=== PATIENT | female | born 1945 | race Caucasian/White ===

== ENCOUNTER → 2019-10-12 10:09 | Outpatient (CLI) | payer MEDICARE, SELFPAY ==
--- NOTE | 2019-10-12 10:09 | MM_ITS ---
PROCEDURE: MM DIG SCREENING MAMM BI W/CAD Referring Doctor: Giorgio Gonzalez Patient Age:74Y CLINICAL INDICATION: Routine screening 74-year-old, no hormones, no new complaints. Noncontributory family history. COMPARISON: Prior studies from [facility]: MG DIG MAMMO BILAT SCREENING from 06/06/2014 MG DIG MAMMO BILAT SCREENING from 07/22/2015 MG DIG MAMMO DIAG UNI LEFT from 07/31/2015 MG DIG MAMMO BILAT SCREENING from 12/10/2016 TECHNIQUE: Standard CC and MLO images were obtained. R2 CAD reviewed. Bilateral digital breast tomosynthesis included. Additional nipple profile CC view right breast included. The FINDINGS: Moderate breast density bilaterally with fibroglandular elements most evident retroareolar region extending towards upper-outer quadrant bilateral. No dominant or suspicious new mass. No suspicious calcifications, minimal benign vascular calcifications bilateral Right breast: No new areas of significant concern. Stable parenchymal pattern Benign appearing calcification centrally again noted.. Left breast. No new areas of concern IMPRESSION: Stable bilateral mammogram with no significant new areas of concern. Bilateral follow-up 1 year recommended BI-RAD Category: 1 Negative FOLLOW-UP: 1YR 1 Year Follow-up (A letter has been sent to the patient regarding results of the study.) Dictated by: Dat Marcos MD 10/18/2019 11:09 Dat Marcos MD in OV 10/18/2019 11:09
== END ==
PROVIDERS: PCP Family Medicine; Visit Provider Family Medicine
DX: Z12.31 Encounter for screening mammogram for malignant neoplasm of breast (principal)
CPT/HCPCS: 77063; 77067

== ENCOUNTER → 2020-12-08 14:21 | Outpatient (CLI) | payer MEDICARE, SELFPAY ==
[2020-12-08 14:25] LABS: Adenovirus,PCR Not Detected (NotDetected); Bordetella Pertussis Not Detected (NotDetected); Chlamydophila Pneumoniae, PCR Not Detected (NotDetected); Coronavirus 19, PCR Not Detected (NotDetected); Coronavirus 229E Not Detected (NotDetected); Coronavirus NL63 Not Detected (NotDetected); Coronavirus OC43 Not Detected (NotDetected); Coronovirus HKU1,PCR Not Detected (NotDetected); Human Metapneumovirus Not Detected (NotDetected); Influenza A, PCR Not Detected (NotDetected); Influenza AH1, 2009 Not Detected (NotDetected); Influenza AH1, PCR Not Detected (NotDetected); Influenza AH3,PCR Not Detected (NotDetected); Influenza B, PCR Not Detected (NotDetected); Mycoplasma Pneumoniae, PCR Not Detected (NotDetected); Parainfluenza 1, PCR Not Detected (NotDetected); Parainfluenza 2, PCR Not Detected (NotDetected); Parainfluenza 3, PCR Not Detected (NotDetected); Parainfluenza 4, PCR Not Detected (NotDetected); Respiratory Syncytial Virus Not Detected (NotDetected)
[2020-12-08 16:15] LABS: Rhinovirus/Enterovirus Detected (NotDetected)
== END ==
PROVIDERS: Visit Provider Family Medicine
DX: R06.02 Shortness of breath (principal); Z20.822 Contact with and (suspected) exposure to COVID-19; B34.1 Enterovirus infection, unspecified
CPT/HCPCS: 87581; 87632; 87798; C9803; U0003; U0005

== ENCOUNTER → 2021-07-23 08:23 | Outpatient (CLI) | payer MEDICARE, SELFPAY ==
--- NOTE | 2021-07-23 08:25 | XR_ITS ---
FINAL REPORT TECHNIQUE: Bone densitometry calculations of the lumbar spine and right hip were obtained. CLINICAL HISTORY: . post menopausal FINDINGS: Using L1-4, the bone mineral density of the spine is 0.862 g/cm2, corresponding to T-score of -1.7. Using the right hip, the bone mineral density of the femoral neck is 0.540 g/cm2, corresponding to a T-score of -2.8. IMPRESSION: Osteoporosis: Lowest T-score is at or below -2.5. This patient''s T-score meets the World Health Organization criteria for osteoporosis. FRAX not reported due to osteoporosis. Reviewed, Interpreted and Dictated by Daniel Ramires III, MD Transcribed by Elver Radford Authenticated and [facility]
== END ==
PROVIDERS: PCP Family Medicine; Visit Provider Family Medicine
DX: Z78.0 Asymptomatic menopausal state (principal)
CPT/HCPCS: 77080

== ENCOUNTER → 2021-08-13 14:30 | Outpatient (CLI) | payer MEDICARE, SELFPAY ==
[2021-08-13 14:14] LABS: Adenovirus,PCR Not Detected (NotDetected); Bordetella Pertussis Not Detected (NotDetected); Chlamydophila Pneumoniae, PCR Not Detected (NotDetected); Coronavirus 19, PCR Not Detected (NotDetected); Coronavirus 229E Not Detected (NotDetected); Coronavirus NL63 Not Detected (NotDetected); Coronavirus OC43 Not Detected (NotDetected); Coronovirus HKU1,PCR Not Detected (NotDetected); Human Metapneumovirus Not Detected (NotDetected); Influenza A, PCR Not Detected (NotDetected); Influenza AH1, 2009 Not Detected (NotDetected); Influenza AH1, PCR Not Detected (NotDetected); Influenza AH3,PCR Not Detected (NotDetected); Influenza B, PCR Not Detected (NotDetected); Mycoplasma Pneumoniae, PCR Not Detected (NotDetected); Parainfluenza 1, PCR Not Detected (NotDetected); Parainfluenza 2, PCR Not Detected (NotDetected); Parainfluenza 3, PCR Not Detected (NotDetected); Parainfluenza 4, PCR Not Detected (NotDetected); Respiratory Syncytial Virus Not Detected (NotDetected); Rhinovirus/Enterovirus Not Detected (NotDetected)
== END ==
PROVIDERS: Visit Provider Family Medicine
DX: Z20.822 Contact with and (suspected) exposure to COVID-19; R06.9 Unspecified abnormalities of breathing; R06.09 Other forms of dyspnea; R05.9 Cough, unspecified
CPT/HCPCS: 87581; 87632; 87798; C9803; U0003; U0005

== ENCOUNTER → 2021-09-14 06:57 | Outpatient (CLI) | payer MEDICARE, SELFPAY ==
[2021-09-14 18:04] LABS: Adenovirus,PCR Not Detected (NotDetected); Bordetella Pertussis Not Detected (NotDetected); Chlamydophila Pneumoniae, PCR Not Detected (NotDetected); Coronavirus 19, PCR Not Detected (NotDetected); Coronavirus 229E Not Detected (NotDetected); Coronavirus NL63 Not Detected (NotDetected); Coronavirus OC43 Not Detected (NotDetected); Coronovirus HKU1,PCR Not Detected (NotDetected); Human Metapneumovirus Not Detected (NotDetected); Influenza A, PCR Not Detected (NotDetected); Influenza AH1, 2009 Not Detected (NotDetected); Influenza AH1, PCR Not Detected (NotDetected); Influenza AH3,PCR Not Detected (NotDetected); Influenza B, PCR Not Detected (NotDetected); Mycoplasma Pneumoniae, PCR Not Detected (NotDetected); Parainfluenza 1, PCR Not Detected (NotDetected); Parainfluenza 2, PCR Not Detected (NotDetected); Parainfluenza 3, PCR Not Detected (NotDetected); Parainfluenza 4, PCR Not Detected (NotDetected); Respiratory Syncytial Virus Not Detected (NotDetected); Rhinovirus/Enterovirus Not Detected (NotDetected)
== END ==
PROVIDERS: PCP Family Medicine; Visit Provider Family Medicine
DX: R06.09 Other forms of dyspnea (principal); J45.909 Unspecified asthma, uncomplicated; Z20.822 Contact with and (suspected) exposure to COVID-19
CPT/HCPCS: 87581; 87632; 87798; C9803; U0003; U0005

== ENCOUNTER → 2021-09-21 10:04 | Outpatient (CLI) | payer MEDICARE, SELFPAY ==
--- NOTE | 2021-09-21 10:08 | XR_ITS ---
FINAL REPORT CLINICAL HISTORY: pna FINDINGS: 2 views of the chest were obtained . The heart is normal in size. The mediastinum is within normal limits. There are bilateral pulmonary opacities, greatest at the lung bases, most worrisome for pneumonia. There is a 32 mm round opacity in the left lower lung which may represent mass or eventration of the hemidiaphragm. There is no pneumothorax. Osseous structures are unremarkable. IMPRESSION: Bilateral pulmonary opacities worrisome for pneumonia. 32 mm opacity of the left lower lung which may represent mass or eventration. Recommend CT for further evaluation. Reviewed, Interpreted and Dictated by Daniel Ramires III, MD Transcribed by Wendy Orozco Authenticated and . [facility]
[2021-09-21 13:00] LABS: Basophils % 0.2 % (0.1-2.0); Eosinophils % 0.1 % (0.1-12.0); Hematocrit 40.3 % (37.0-47.0); Hemoglobin 12.4 g/dL (12.2-16.2); Lymphocytes # 0.6 K/mm3 (0.7-4.5); Lymphocytes % 2.6 % (10-50); Mean Corpuscular HGB Conc 30.7 g/dL (31.8-35.4); Mean Corpuscular Hemoglobin 29.2 pg (27.0-31.2); Mean Corpuscular Volume 95.3 fl (81-99); Mean Platelet Volume 7.9 fl (7.4-10.4); Monocytes # 0.7 K/mm3 (0.1-1.0); Monocytes % 2.9 % (1.7-9.3); Neutrophils % 94.1 % (37.0-80.0); Platelet Count 622 K/mm3 (142-424); Red Blood Count 4.23 M/mm3 (4.20-5.40); Red Cell Distribution Width 13.6 % (11.5-17.5); White Blood Count 22.3 K/mm3 (4.8-10.8)
[2021-09-21 13:01] LABS: MANUAL DIFFERENTIAL MANUAL DIFFERENTIAL (MANUAL DIFF)
[2021-09-21 13:12] LABS: Uric Acid 4.1 mg/dl (2.5-6.2)
[2021-09-21 13:18] LABS: C-Reactive Protein 13.5 mg/L (0-4)
[2021-09-21 13:24] LABS: Eosinophils % 1 % (0-3); Lymphocytes % 5 % (10-50); Monocytes % 2 % (2-9); Neutrophils % 91 % (42-76); Total Cells Counted 100
[2021-09-21 13:25] LABS: Anisocytosis 1+; Hypochromasia 2+; Platelet Estimate Moderate Increase
[2021-09-21 13:31] LABS: Erythrocyte Sedimentation Rate 21 mm/hr (0-30)
[2021-09-22 12:10] LABS: Sjogren's Anti-SS-A <0.2 AI (0.0-0.9); Sjogren's Anti-SS-B <0.2 AI (0.0-0.9)
[2021-09-22 13:10] LABS: Angiotensin Converting Enzyme <15 U/L (14-82)
[2021-09-22 16:12] LABS: Antinuclear Antibodies, IFA Negative (.)
[2021-09-23 14:25] LABS: Cytoplasmic (C-ANCA) 1:40 titer (Neg:<1:20); Perinuclear (P-ANCA) <1:20 titer (Neg:<1:20)
[2021-09-24 00:11] LABS: Anti-Cyclic Citrullinated Pept 3 units (0-19)
[2021-09-24 18:09] LABS: QuantiFERON-TB Gold Plus Indeterminate (Negative)
[2021-09-25 16:13] LABS: Strongyloides IgG Antibody Negative (Negative)
[2021-09-29 17:51] LABS: D001-IgE D pteronyssinus 0.11 kU/L (Class 0/I); D002-IgE D farinae 0.12 kU/L (Class 0/I); E005-IgE Dog Dander 0.54 kU/L (Class I); E072-IgE Mouse Urine <0.10 kU/L (Class 0); I006-IgE Cockroach, German <0.10 kU/L (Class 0); M002-IgE Cladosporium herbarum <0.10 kU/L (Class 0); M006-IgE Alternaria alternata <0.10 kU/L (Class 0); W001-IgE Ragweed, Short 0.27 kU/L (Class 0/I)
[2021-10-03 18:27] LABS: Antinuclear Antibodies (ANA) Negative
[2021-10-03 18:50] LABS: Aspergillus fumigatus IgG Negative; Pigeon Serum Abs Negative
== END ==
PROVIDERS: Internal Medicine Pulmonary Disease; PCP Family Medicine; Visit Provider Family Medicine
DX: R09.02 Hypoxemia (principal); R06.09 Other forms of dyspnea; J84.9 Interstitial pulmonary disease, unspecified; D72.19 Other eosinophilia; J45.909 Unspecified asthma, uncomplicated
CPT/HCPCS: 36415; 71046; 82164; 82785; 84550; 85007; 85025; 85651; 86003; 86038; 86140; 86200; 86235; 86256; 86331; 86431; 86480; 86602; 86606; 86609; 86682

== ENCOUNTER → 2021-09-30 13:04 | Outpatient (CLI) | payer MEDICARE, SELFPAY ==
[2021-09-30 13:25] VITALS: BP 115/89; PULSE 101; RESP 24; O2SAT 95
[2021-09-30 13:35] VITALS: BP 115/70; PULSE 105; RESP 28; O2SAT 91
[2021-09-30 14:30] VITALS: PULSE 89; PULSE 90
--- NOTE | 2021-09-30 14:56 | CT_ITS ---
FINAL REPORT TECHNIQUE: Axial images were obtained through the chest without contrast. High-resolution technique was utilized. CLINICAL HISTORY: . 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 There is a moderate hiatal hernia. There is bulky calcification in the kaiser hepatis, probably related to large calcified node measuring 2.6 cm. There is a fluid attenuation structure in the left upper lobe measuring 4.7 x 3.6 cm which appears cystic. This may extend across the left hemidiaphragm. Finding is best seen on coronal image number 22 of series 601. There is abnormal localized airspace opacity in the right upper lobe well seen on image number 22 of series 601. There are smaller patchy airspace foci bilaterally. There is extensive peribronchial thickening throughout both lungs, particularly at the bases. There is mild bronchiectasis, particularly in the lung bases. IMPRESSION: Right aortic arch. Moderate hiatal hernia. Fluid attenuation structure in the left upper lobe which appear cystic and may extend across the left hemidiaphragm. Extensive bronchitis and bronchiolitis with associated bronchiectasis. Findings are thought likely to be infectious. Recommend bronchoscopy to further evaluate. Reviewed, Interpreted and Dictated by Jevon Baig MD Transcribed by Jolynn Miles Authenticated and [facility]
== END ==
PROVIDERS: PCP Family Medicine; Visit Provider Internal Medicine Pulmonary Disease
DX: R06.09 Other forms of dyspnea (principal); J84.9 Interstitial pulmonary disease, unspecified
CPT/HCPCS: 71250; 87070; 87077; 87116; 87186; 87205; 87206; 94060; 94618; 94640; 94727; 94729

== ENCOUNTER → 2021-10-17 10:09 | Outpatient (CLI) | payer MEDICARE, SELFPAY | PROVIDERS: PCP Family Medicine; Visit Provider Internal Medicine Pulmonary Disease | DX: Z20.822 Contact with and (suspected) exposure to COVID-19 (principal) | CPT/HCPCS: C9803; U0003; U0005 ==

== ENCOUNTER 2021-10-19 09:20 | Day surgery (SDC) | payer MEDICARE, SELFPAY ==
[2021-10-19] VITALS (13 sets, daily range): BP systolic 107–170; BP diastolic 52–109; PULSE 88–102; RESP 11–29; TEMP 36.3–37.1; O2SAT 92–99; BMI 23.8
--- NOTE | 2021-10-19 13:58 | P.PN_ITS ---
[facility] Medical History Atypical pneumonia Bronchiectasis with (acute) exacerbation Bronchiolitis Chronic respiratory failure with hypoxia COPD (chronic obstructive pulmonary disease) case management patient Exertional dyspnea ILD (interstitial lung disease) Moderate persistent asthma 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 Surgical History History of section Family History (Updated 10/19/21 @ 10:08 by Pamela Kerns RN) Other Family history of heart attack Social History (Updated 10/19/21 @ 10:10 by Pamela Kerns RN) Smoking Status: Never smoker alcohol intake: never substance use type: denies use current occupational status: retired Travel in the last 8 weeks: None housing: house caffeine: Yes [facility] [place] Anesthesia Checklist Patient Identification Patient Identification: Arm Band and Verbal (Name & ) Structural Data Admitted From: Home Planned Operative Procedure/s: Bronchoscopy Consent for Planned Operative Procedure(s) Verified: Yes Verified Documents: Surgical Consent NPO Status Verified Time NPO: 00:00 Additional verifications Cephalosporin Allergy: No Airway Assessment C-Spine Mobility Assessed: Yes TMJ Mobility Assessed: Yes Dentition: Good Dentition Neurological Assessment Level of Consciousness: Awake, Alert and Appropriate Anesthesia Plan Anesthesia Risk discussed: Yes ASA Class: III Anesthesia Type: General
--- NOTE | 2021-10-19 14:03 | XR_ITS ---
FINAL REPORT CLINICAL HISTORY: BRONCH IN OR FINDINGS: FLUORO TIME PROCEDURE: Fluoroscopy in the operating room. FINDINGS: Fluoroscopy time was provided by the radiology department for the clinical service. One spot film was obtained. Fluoroscopy exposure time: 2:09 minutes IMPRESSION: See above Reviewed, Interpreted and Dictated by Daniel Ramires III, MD Transcribed by Sia Hi Authenticated and [facility]
--- NOTE | 2021-10-19 14:20 | EXP.ANES.I ---
[facility] Anesthesia Record Part I Anesthesia Record I Intake, IV Amount: 600 Estimated blood loss (mL): 1 Urine output (mL): 0 Blood Pressure: 130/55 SaO2: 92 Pulse Rate: 88 Respiratory Rate: 14 Temperature: 97.9 F Patient is:: Drowsy Stable to PACU at:: 14:14
--- NOTE | 2021-10-19 15:04 | EXP.ANES.II ---
[facility] Anesthesia Record Part II Anesthesia Record Part II Discharge Time: 14:44 Destination: Surgical Day Care (OP Surgery) PACU nurse assessment reviewed?: Yes Patient Condition:: Good Anesthesia Complications:: None Swallowing reflex intact?: Yes Cyanosis?: No Blood Pressure: 138/56 Pulse Rate: 97 Temperature: 97.3 F Mental Status: Alert & Oriented Pain level:: 0 Nausea and/or vomitting:: None Intake, IV Amount: 0
== END 2021-10-19 15:32 | disposition home or self-care (01) ==
PROVIDERS: PCP Family Medicine; Visit Provider Internal Medicine Pulmonary Disease
DX: J93.9 Pneumothorax, unspecified (principal)
CPT/HCPCS: 71045; 76000; 87070; 87102; 87116; 87186; 87205; 87206; 89051; 94640

== ENCOUNTER 2021-10-19 18:35 | Inpatient (IN) | payer MEDICARE, SELFPAY ==
[2021-10-19] VITALS (20 sets, daily range): BP systolic 94–159; BP diastolic 46–84; PULSE 80–118; RESP 18–44; TEMP 36.3–36.6; O2SAT 98–100; BMI 29.4; BMI 29.2
--- NOTE | 2021-10-19 18:44 | XR_ITS ---
PROCEDURE INFORMATION: Exam: XR Chest Exam date and time: 10/19/2021 6:49 PM Age: 76 years old Clinical indication: Shortness of breath; Patient HX: PT arrived w SOA & pneumothorax TECHNIQUE: Imaging protocol: Radiologic exam of the chest. Views: 1 view. COMPARISON: SD XR CHEST AP 10/19/2021 2:00 PM FINDINGS: Tubes, catheters and devices: Moderate size right pneumothorax with subsequent chest radiograph demonstrating right chest tube placement and reduction in size. Lungs: Bronchial wall thickening and coarse interstitial markings, not significantly changed from prior chest radiograph. Atelectasis in the right lung base. Pleural spaces: No large pleural effusion. No left pneumothorax. Heart/Mediastinum: Slight right to left mediastinal shift concerning for tension pneumothorax, also improved on subsequent chest radiograph. Bones/joints: No acute osseous abnormality. IMPRESSION: 1. Moderate size right pneumothorax with subsequent chest radiograph demonstrating right chest tube placement and reduction in size. 2. Slight right to left mediastinal shift concerning for tension pneumothorax, also improved on subsequent chest radiograph.
--- NOTE | 2021-10-19 18:59 | XR_ITS ---
PROCEDURE INFORMATION: Exam: XR Chest Exam date and time: 10/19/2021 7:11 PM Age: 76 years old Clinical indication: Device placement; Chest tube; Patient HX: Post intubation TECHNIQUE: Imaging protocol: Radiologic exam of the chest. Views: 1 view. COMPARISON: CR XR CHEST PORTABLE 10/19/2021 6:49 PM FINDINGS: Tubes, catheters and devices: Interval placement of right-sided chest tube with tip projecting over the of the right hemithorax in side hole external to the ribcage. Endotracheal tube in place with tip projecting 4.6 cm above the leonardo. Lungs: Subsegmental atelectasis vs infiltrate in the lingula. Bronchial wall thickening and coarse interstitial markings, not significantly changed. Pleural spaces: Significant interval reduction in size of right-sided pneumothorax with persistent subsegmental atelectasis in the right lung base. Heart/Mediastinum: See Vasculature finding. Vasculature: Interval reduction in right to left mediastinal shift with right-sided aortic arch now apparent. Bones/joints: No acute osseous abnormality. IMPRESSION: 1. Interval placement of right-sided chest tube with tip projecting over the of the right hemithorax in side hole external to the ribcage. Consider replacement/repositioning. 2. Significant interval reduction in size of right-sided pneumothorax with persistent subsegmental atelectasis in the right lung base. 3. Interval reduction in right to left mediastinal shift with right-sided aortic arch now apparent. 4. Endotracheal tube in place with tip projecting 4.6 cm above the leonardo. 5. Subsegmental atelectasis vs infiltrate in the lingula.
--- NOTE | 2021-10-19 19:32 | PC.NURSE ---
dr pantoja paged for ED doctor
--- NOTE | 2021-10-19 19:33 | PC.NURSE ---
ED doctor on phone with Dr. Gonzalez
--- NOTE | 2021-10-19 19:34 | PC.NURSE ---
Propofol initiated at 18ml/hr per protocol at 1921 Propofol increased to 20ml/hr at 9 d/t pt reaching for ET tube.
--- NOTE | 2021-10-19 19:37 | PC.NURSE ---
Dr. Caballero paged for ED doctor
--- NOTE | 2021-10-19 19:40 | PC.NURSE ---
ED doctor on phone with Dr. Caballero
--- NOTE | 2021-10-19 19:59 | PC.NURSE ---
PATIENT ADMITTED TO [address] TO SERVICE OF DR[address] MALLOY, DX OF HYPOXIA, RESP FAILURE AND TENSION PNEUMOTHORAX.
--- NOTE | 2021-10-19 20:04 | HMH.EDGENADL ---
Discharge Plan Disposition Patient Disposition: Admitted As Inpatient Condition: Critical Chief Complaint: Shortness of Breath/Dyspnea Prescriptions Prescriptions: No Action aspirin [Aspir-81] 81 mg tablet,delayed release (DR/EC) 81 mg PO DAILY guaifenesin [Mucinex] 600 mg tablet extended release 12hr 600 mg PO Q12H PRN (Reason: congestion) Qty: 60 10RF Prolia 60 mg/mL syringe 60 mg SQ [id number] Qty: 1 2RF albuterol sulfate 1.25 mg/3 mL solution for nebulization See Rx Instructions .ROUTE .COMPLEX Rx Instructions: INHALE 6 ML VIA NEBULIZER EVERY 6 HOURS. meloxicam 15 mg tablet 15 mg PO DAILY montelukast 10 mg tablet 10 mg PO DAILY levofloxacin 750 mg tablet 750 mg PO DAILY cholecalciferol (vitamin D3) 125 mcg (5,000 unit) capsule 125 mcg PO DAILY Spiriva with HandiHaler 18 mcg capsule, w/inhalation device See Rx Instructions .ROUTE .COMPLEX Rx Instructions: INHALE THE CONTENTS OF 1 CAPSULE EVERY DAY amlodipine-benazepril 10-40 mg capsule 1 cap PO DAILY Advair HFA 230-21 mcg/actuation HFA aerosol inhaler 2 puff INHALATION BID Referrals Follow up/Referrals: Giorgio Gonzalez MD [Primary Care Provider] - See instructions Discharge ED Provider: Sergio Gurrola General Adult HPI General Chief complaint: Shortness of Breath/Dyspnea Stated complaint: Resp Distress Time Seen by Provider: 10/19/21 18:35 Mode of Arrival: EMS Source of Information: EMS Limitations: Language Barrier Description of Symptoms (Recalled from ER Triage Doc. by RN): to ed per squad with c/o sob reports pt with bronchoscopy today. reports o2 sat of 80% at home pt admits on cpap o2 sats of 99%. obtuned. History of Present Illness HPI narrative: This is a 76-year-old female with history of COPD, lung mass, interstitial lung disease, who had bronchoscopy done today who is presenting with altered mental status, obtunded, hypoxemic respiratory failure. EMS was called because patient was nonresponsive, when they arrived, patient saturating in the 70%. They placed her on CPAP without resolved, gave her 2 DuoNeb's, steroids, no evidence of improvement. Brought patient to ED for further evaluation. Related Data Home Medications Medication Instructions Recorded Confirmed aspirin 81 mg tablet,delayed 81 mg PO DAILY heart health 08/14/19 10/19/21 release (Aspir-) albuterol sulfate 1.25 mg/3 mL See Rx Instructions .Route 10/16/21 10/19/21 solution for nebulization .COMPLEX COPD amlodipine 10 mg-benazepril 40 mg 1 cap PO DAILY High blood pressure 10/16/21 10/19/21 capsule cholecalciferol (vitamin D3) 125 125 mcg PO DAILY Supplement 10/16/21 10/19/21 mcg (5,000 unit) capsule fluticasone propionate 230 2 puff inhalation BID COPD 10/16/21 10/19/21 mcg-salmeterol 21 mcg/actuation HFA inhaler (Advair HFA) levofloxacin 750 mg tablet 750 mg PO DAILY Infection 10/16/21 10/19/21 meloxicam 15 mg tablet 15 mg PO DAILY Pain 10/16/21 10/19/21 montelukast 10 mg tablet 10 mg PO DAILY Allergy symptoms 10/16/21 10/19/21 tiotropium bromide 18 mcg capsule See Rx Instructions .Route 10/16/21 10/19/21 with inhalation device (Spiriva .COMPLEX COPD with HandiHaler) Previous Rx's Medication Instructions Recorded guaifenesin 600 mg tablet, 600 mg PO Q12H PRN congestion #60 11/07/20 extended release 12 hr (Mucinex) tabs denosumab 60 mg/mL subcutaneous 60 mg SQ [id number] osteoporosis #1 08/13/21 syringe (Prolia) mL Allergies Allergy/AdvReac Type Severity Reaction Status Date / Time egg Allergy Severe Swelling Verified 10/19/21 09:48 of Lip/Tongue/Throat levofloxacin [From Levaquin] Allergy Severe Swelling Verified 10/19/21 09:48 of Lip/Tongue/Throat clarithromycin [From Biaxin] Allergy Mild Hives Verified 10/19/21 09:48 phenytoin [From Dilantin] Allergy Mild Hives Verified 10/19/21 09:48 alendronate sodium Allergy rash, hives Verified 10/19/21 09:48 [Fro
--- NOTE | 2021-10-19 20:14 | PC.NURSE ---
RESP CARE NOTE pt was intubated and sputum culture from endotracheal tub aspirate was obtained per written protocol and sent to lab at 1930
--- NOTE | 2021-10-19 20:28 | ECG_ITS ---
APPROVED REPORT Exam: Resting ECG HR:91 bpm ECG Measurements Heart Rate 91 AXES SC 135 P 83 QRSd 99 QRS 78 QT 367 T 49 QTc 415 Conclusion SINUS RHYTHM NORMAL ECG UNCONFIRMED REPORT Electronically signed by : Raymond Griffith MD 10/20/2021 15:44:22
[2021-10-19 20:29] LABS: Microscopic, Urine URINE MICROSCOPIC (MICROSCOPIC)
[2021-10-19 20:32] LABS: Appearance,Urine CLEAR (Clear); Bilirubin,Urine Negative (Negative); Blood, Urine Negative (Negative); Color,Urine YELLOW (Yellow); Glucose,Urine (UA) Negative (Negative); Ketones,Urine Negative (Negative); Leukocyte Esterase,Urine Negative (Negative); Nitrate,Urine Negative (Negative); PH,Urine 5.5 (5.0-8.5); Protein,Urine TRACE (Negative); Specific Gravity, Urine >= 1.030 (1.005-1.030); Urobilinogen,Urine 0.2 EU/dl (0.2)
[2021-10-19 20:42] LABS: ABG Base Excess -2.1 mmol/L (-2.4-2.3); ABG Oxygen Saturation 99 % (90-100); ABG PH 7.25 mmol/L (7.35-7.45); ABG PO2 158.2 mmhg (80-100); ABG TCO2 26.8 mmhg (23-27); Allen's Test Patient Unable; Oxygen 50 %; PEEP 5; Tidal Volume 400
[2021-10-19 20:43] LABS: Source Right Brachial
[2021-10-19 20:48] LABS: Basophils % 0.1 % (0.1-2.0); Eosinophils # 0.1 K/mm3 (0.0-0.4); Eosinophils % 0.2 % (0.1-12.0); Hematocrit 36.6 % (37.0-47.0); Hemoglobin 11.6 g/dL (12.2-16.2); Lymphocytes # 0.3 K/mm3 (0.7-4.5); Mean Corpuscular HGB Conc 31.7 g/dL (31.8-35.4); Mean Corpuscular Hemoglobin 29.8 pg (27.0-31.2); Mean Corpuscular Volume 94.2 fl (81-99); Mean Platelet Volume 7.7 fl (7.4-10.4); Monocytes # 0.8 K/mm3 (0.1-1.0); Neutrophils # 25.6 K/mm3 (1.8-7.8); Neutrophils % 95.6 % (37.0-80.0); Platelet Count 418 K/mm3 (142-424); Red Blood Count 3.89 M/mm3 (4.20-5.40); Red Cell Distribution Width 13.9 % (11.5-17.5); White Blood Count 26.8 K/mm3 (4.8-10.8)
--- NOTE | 2021-10-19 20:54 | PC.NURSE ---
Propofol decreased to 18ml/hr
[2021-10-19 20:57] LABS: MANUAL DIFFERENTIAL MANUAL DIFFERENTIAL (MANUAL DIFF)
[2021-10-19 21:12] LABS: Chloride 96 mmol/L (98-107); Potassium 4.4 mmoL/L (3.5-5.1); Sodium 137 mmol/L (136-145)
[2021-10-19 21:14] LABS: Blood Urea Nitrogen 8 mg/dl (7-17); Creatinine Clearance Estimated 55 mL/min (50-200); Estimated Glomerular Filt Rate 120 ml/min (>60); GFR (African American) 145 ML/MIN (>60); Lactic Acid 2.3 mmol/L (0.7-2.1)
[2021-10-19 21:15] LABS: Alanine Aminotransferase 17 U/L (12-78); Albumin Level 3.6 g/dl (3.5-5.0); Albumin/Globulin Ratio 1.4 (1.1-1.8); Alkaline Phosphatase 88 U/L (38-126); Anion Gap 16.4 mEq/L (5-15); Aspartate Amino Transferase 33 U/L (14-36); Bilirubin,Total 0.6 mg/dl (0.2-1.3); Calcium 7.9 mg/dl (8.4-10.2); Carbon Dioxide 29 mmol/L (22.0-30.0); Globulin 2.6 g/dL (1.3-3.2); Glucose 243 mg/dl (74-100); Total Protein,Serum 6.2 g/dl (6.3-8.2)
[2021-10-19 21:33] LABS: Coronavirus 19, PCR Not Detected (NotDetected); Influenza A, PCR Not Detected (NotDetected); Influenza B, PCR Not Detected (NotDetected)
[2021-10-19 21:34] LABS: Lymphocytes % 3 % (10-50); Monocytes % 1 % (2-9); Neutrophils % 96 % (42-76); Total Cells Counted 100
[2021-10-19 21:36] LABS: Ovalocytes 1+; Platelet Estimate Normal
[2021-10-19 21:40] LABS: Bacteria,Urine 1+ /lpf
[2021-10-19 21:41] LABS: Troponin I < 0.01 ng/ml (0.00-0.034)
--- NOTE | 2021-10-19 21:58 | PC.NURSE ---
also said to cancel CT w/contrast
--- NOTE | 2021-10-19 23:04 | PC.NURSE ---
PT ARRIVED TO FLOOR VIA STRETCHER AT THIS TIME
--- NOTE | 2021-10-19 23:35 | PC.NURSE ---
Pt left ED at 2304 to the floor accompanied by CECILY Abebe and RT
[2021-10-20] VITALS (29 sets, daily range): BP systolic 94–166; BP diastolic 51–67; PULSE 63–112; RESP 15–24; TEMP 36.3–37.1; O2SAT 93–100; BMI 21.7
--- NOTE | 2021-10-20 00:14 | PC.NURSE ---
MD Gonzalez notified that pt met sepsis criteria with WBC, HR prior in ER, Lactic with new suspected infection. Pt was given cefepime in ER. She is not hypotensive. New orders received to start NS @ 100 ml/hr.
[2021-10-20 00:26] LABS: Reflex Lactic Add Lactic Reflex
[2021-10-20 00:29] LABS: Troponin I 0.01 ng/ml (0.00-0.034)
[2021-10-20 00:43] LABS: Lactic Acid Follow Up (RFLX 1) 1.2 mmol/L (0.7-2.1)
--- NOTE | 2021-10-20 03:22 | PC.NURSE ---
Vent settings are as follows: AC, FiO2 35%, TV 400, R 20, PEEP 5. 16 fr OG placed. 56 @ lip. Pt tolerating vent. Pt moderately sedated at this time. Still wakes and thrashes about at times. Propofol is currently infusing @ 50 mcg/kg/min. Ns @ 100 ml/hr. 16 F/C draining to bedside with yellow, clear urine. Urine output has decreased since arrival to floor. Pleur evac to suction. Air leak noted. DSG to (R) side is intact. Pt turned. Oral care and suction provided. Safety measures in place.
--- NOTE | 2021-10-20 06:00 | XR_ITS ---
PROCEDURE INFORMATION: Exam: XR Chest Exam date and time: 10/20/2021 5:25 AM Age: 76 years old Clinical indication: Device placement; Chest tube; Additional info: Ett, chest tube, og placement TECHNIQUE: Imaging protocol: Radiologic exam of the chest. Views: 1 view. COMPARISON: CR XR CHEST PORTABLE 10/19/2021 7:11 PM FINDINGS: Tubes, catheters and devices: Nasogastric tube extends slightly below the diaphragm with the tip projecting over the body of the stomach. The endotracheal tube is above the level of the leonadro. Thoracotomy tube on the right directed to the apex. Lungs: Emphysema. Patchy airspace disease most pronounced within the right lower lobe greater than left. Patchy airspace disease in the perihilar region. Pleural spaces: Unremarkable. No pleural effusion. No pneumothorax. Heart/Mediastinum: Unremarkable. No cardiomegaly. Right-sided aortic arch. Bones/joints: Unremarkable. IMPRESSION: Emphysema. Patchy airspace disease most pronounced within the right lower lobe greater than left. Patchy airspace disease in the perihilar region.
[2021-10-20 06:29] LABS: Basophils % 0.1 % (0.1-2.0); Eosinophils # 0.1 K/mm3 (0.0-0.4); Eosinophils % 0.4 % (0.1-12.0); Hemoglobin 10.6 g/dL (12.2-16.2); Lymphocytes # 0.6 K/mm3 (0.7-4.5); Lymphocytes % 2.7 % (10-50); MANUAL DIFFERENTIAL MANUAL DIFFERENTIAL (MANUAL DIFF); Mean Corpuscular HGB Conc 32.1 g/dL (31.8-35.4); Mean Corpuscular Hemoglobin 29.7 pg (27.0-31.2); Mean Corpuscular Volume 92.4 fl (81-99); Mean Platelet Volume 8.7 fl (7.4-10.4); Monocytes # 0.8 K/mm3 (0.1-1.0); Monocytes % 3.5 % (1.7-9.3); Neutrophils # 19.7 K/mm3 (1.8-7.8); Neutrophils % 93.2 % (37.0-80.0); Platelet Count 358 K/mm3 (142-424); Red Blood Count 3.57 M/mm3 (4.20-5.40); White Blood Count 21.1 K/mm3 (4.8-10.8)
[2021-10-20 06:44] LABS: Anion Gap 11.9 mEq/L (5-15); Blood Urea Nitrogen 14 mg/dl (7-17); Calcium 7.9 mg/dl (8.4-10.2); Carbon Dioxide 22 mmol/L (22.0-30.0); Chloride 102 mmol/L (98-107); Creatinine Clearance Estimated 41 mL/min (50-200); Estimated Glomerular Filt Rate 120 ml/min (>60); GFR (African American) 145 ML/MIN (>60); Glucose 156 mg/dl (74-100); Potassium 3.9 mmoL/L (3.5-5.1); Sodium 132 mmol/L (136-145)
--- NOTE | 2021-10-20 07:17 | P.CONPHA_ITS ---
[facility] Pharmacy VTE Monitoring Patient Demographics Admission date: 10/19/21 Report Date: 10/20/21 Time: 07:17 Patient Allergies egg Allergy (Severe, Verified 10/19/21 09:48) Swelling of Lip/Tongue/Throat levofloxacin [From Levaquin] Allergy (Severe, Verified 10/19/21 09:48) Swelling of Lip/Tongue/Throat clarithromycin [From Biaxin] Allergy (Mild, Verified 10/19/21 09:48) Hives phenytoin [From Dilantin] Allergy (Mild, Verified 10/19/21 09:48) Hives alendronate sodium [From Fosamax] Allergy (Verified 10/19/21 09:48) rash, hives oxycodone Adverse Reaction (Verified 10/19/21 09:48) vomiting Height: 1.57 m Weight: 53.615 kg Current Active Problems (Updated 10/20/21 @ 02:49 by Yocasta Cool RN) Pneumothorax (Acute) VTE Risk Labs: VTE Related Lab Results Hgb 10.6 g/dL (12.2-16.2) L 10/20/21 06:05 Hct 33.0 % (37.0-47.0) L 10/20/21 06:05 Plt Count 358 K/mm3 (142-424) 10/20/21 06:05 BUN 14 mg/dl (7-17) D 10/20/21 06:05 Creatinine 0.50 mg/dl (0.52-1.04) L 10/20/21 06:05 Estimated Creat Clear 41 mL/min (50-200) 10/20/21 06:05 VTE Risk Level: Moderate Risk Prophylaxis VTE Prophylaxis Ordered?: Yes Types of VTE Prophylaxis: TEDS Knee High Location of Applied Device: Bilateral Lower Extremeties
--- NOTE | 2021-10-20 07:17 | HMH.PHAINT1 ---
Pharmacy Intervention Comments: MEDICATION RECONCILIATION COMPLETED ON PATIENT USING EXTERNAL FILL HISTORY FROM PHARMACY. -ROCK ZAMBRANO, CESILIAD
[2021-10-20 07:44] LABS: Lymphocytes % 5 % (10-50); Monocytes % 1 % (2-9); Neutrophils % 94 % (42-76); Platelet Estimate Normal; RBC Morphology Normal; Total Cells Counted 100
[2021-10-20 07:54] LABS: ABG Base Excess 0.2 mmol/L (-2.4-2.3); ABG HCO3 22.7 mmhg (22.0-26.0); ABG Oxygen Saturation 98 % (90-100); ABG PCO2 27.1 mmhg (35.0-45.0); ABG PH 7.54 mmol/L (7.35-7.45); ABG TCO2 23.5 mmhg (23-27); Oxygen 30 %; Tidal Volume 400; Vent Rate 20
[2021-10-20 07:55] LABS: Allen's Test acceptable; PEEP 5; Source Left Radial
--- NOTE | 2021-10-20 07:57 | EXP.HP ---
History of Present Illness *Admission Date: 10/19/21 *Reason for visit:: Respiratory distress *History of present illness: 46-year-old female patient presented to the [facility] emergency department via EMS after family called squad for patient's O2 saturations of 80%. Patient had a bronchoscopy yesterday and last evening developed shortness of breath and respiratory distress. Upon arrival squad noted oxygen saturation to be 70% and she was nonresponsive. They administered 2 duo nebs, steroids, and CPAP with no improvement. Emergency department she was found to not have right-sided breath sounds, bedside ultrasound demonstrated no lung movement and initial chest x-ray demonstrated tension and resolution of mediastinal shift and emergent chest tube was placed. Due to patient unable to protect airway, patient was intubated. 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 Surgical History History of section Family History Other Family history of heart attack Social History (Updated 10/20/21 @ 02:52 by Yocasta Cool RN) Smoking Status: Unknown if ever smoked alcohol intake: never substance use type: denies use current occupational status: retired Travel in the last 8 weeks: None housing: house caffeine: Yes Review of Systems Review of Systems Review of systems:: unable to obtain Review of systems (narrative): Review of systems unable to obtain, patient intubated and sedated Meds Home Medications and Allergies Home Medications Medication Instructions Recorded Confirmed Type denosumab 60 mg/mL subcutaneous 60 mg SQ [id number] osteoporosis #1 08/13/21 10/19/21 Rx syringe (Prolia) mL albuterol sulfate 1.25 mg/3 mL 1.25 mg inhalation Q6 COPD 10/16/21 10/19/21 History solution for nebulization amlodipine 10 mg-benazepril 40 mg 1 cap PO DAILY Hypertension 10/16/21 10/19/21 History capsule cholecalciferol (vitamin D3) 125 125 mcg PO DAILY Supplement 10/16/21 10/19/21 History mcg (5,000 unit) capsule meloxicam 15 mg tablet 15 mg PO DAILY Pain 10/16/21 10/19/21 History montelukast 10 mg tablet 10 mg PO DAILY Allergy symptoms 10/16/21 10/19/21 History fluticasone propionate 230 1 puff inhalation BID COPD 10/19/21 10/19/21 History mcg-salmeterol 21 mcg/actuation HFA inhaler (Advair HFA) tiotropium bromide 18 mcg capsule 1 cap inhalation DAILY COPD 10/19/21 10/20/21 History with inhalation device (Spiriva with HandiHaler) aspirin 81 mg tablet,delayed 81 mg PO DAILY HEART HEALTH 10/20/21 10/20/21 History release New Prescriptions to Start Prescriptions: Allergies Allergy/AdvReac Type Severity Reaction Status Date / Time egg Allergy Severe Swelling Verified 10/19/21 09:48 of Lip/Tongue/Throat levofloxacin [From Levaquin] Allergy Severe Swelling Verified 10/19/21 09:48 of Lip/Tongue/Throat clarithromycin [From Biaxin] Allergy Mild Hives Verified 10/19/21 09:48 phenytoin [From Dilantin] Allergy Mild Hives Verified 10/19/21 09:48 alendronate sodium Allergy rash, hives Verified 10/19/21 09:48 [From Fosamax] oxycodone AdvReac vomiting Verified 10/19/21 09:48 Exam Data for Last 24 hours Vital signs and Labs for Last 24 Hours: Temp Pulse Resp BP Pulse
--- NOTE | 2021-10-20 09:22 | P.PCN_ITS ---
Procedure: Date: 10/19/21 Patient Date of :: 1945 Procedure Performed:: Bronchoscopy with airway examination, alveolar lavage and transbronchial biopsy Indications:: Atypical pneumonia/follicular bronchiolitis Performing Provider:: Anna Caballero MD Referring Provider:: Dr. Gonzalez Sedation:: General anesthesia Procedure:: Bronchoscopy airway examination, bronchoalveolar lavage and transbronchial lung biopsy: A clean DIAGNOSTIC bronchoscopy was advanced through the ET tube and airways were examined up to subsegmental bronchi. Airways appeared grossly normal, no evidence of mucoid secretions, mucous plugging active bleeding/old blood clots noted. Bronchoalveolar lavage was performed in the RIGHT MIDDLE LOBE with instillation of 60 cc normal saline with return of 30 cc cloudy fuid back. BAL fluid was sent for cell count and differential along with bacterial fungal and AFB stain and cultures. Transbronchial biopsy was performed in the RIGHT MIDDLE LOBE with a total of 7 biopsies performed, 5 biopsy specimens were sent in formalin for cytopathologic examination. The other 2 biopsy samples, were sent one each in two separate normal saline specimen cups for bacterial fungal and AFB stain cultures. Special request was also made for the pathologist to evaluate for AFB and fungal organisms on the cytopathologic examination. Patient tolerated the procedure with no acute immediate complicatios and was discharged home with postoperative instructions. However patient returned to the emergency department later the day of the procedure complaining worsening respiratory distress found to be having right- sided pneumothorax eventually needing emergency chest tube placement. Findings:: Please see the procedure note Recommendations:: Please see the procedure note. Complications:: No acute immediate complications. However patient returned to the emergency department later the day of the procedure complaining worsening respiratory distress found to be having right-sided pneumothorax eventually needing emergency chest tube placement. Please see the procedure note Estimated blood obtained (mL): 5
--- NOTE | 2021-10-20 10:07 | PC.NURSE ---
per dr li decreased propofol down to 15mcg/kg/min from the 50. plan to turn it off and start sbt. also turned of fluids per his order
--- NOTE | 2021-10-20 10:59 | PC.NURSE ---
Addendum entered by Shima Banegas RN 10/20/21 11:38: 1125 sedation stopped for sbt Original Note: 1015 Dr Caballero at bedside securing chest tube, sedation increased to 30mcg (from 15mcg) per his verbal order. sedation to be decreased back to 15mcg in approx 30min 1100 sedation decreased back to 15mcg in preparation for SBT. Respiratory notified of sedation changes
--- NOTE | 2021-10-20 11:07 | EXP.PULM.CON ---
History of Present Illness History of present illness: Ms. Garcia is 76-year-old female with significant smoking requires a diagnosis of asthma, follicular bronchiolitis following in pulmonary clinic for exertional dyspnea had a bronchoscopy transbronchial biopsy yesterday complicated by pneumothorax presented to the hospital later yesterday for worsening respiratory status found to be having with requiring emergent chest tube placement and mechanical ventilator support for her altered mentation possible hypercarbic respiratory failure and pulmonary was called for further management. 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 Surgical History History of section Family History Other Family history of heart attack Social History (Updated 10/20/21 @ 02:52 by Yocasta Cool, CECLIY) Smoking Status: Unknown if ever smoked alcohol intake: never substance use type: denies use current occupational status: retired Travel in the last 8 weeks: None housing: house caffeine: Yes Review of Systems Review of Systems Review of systems:: unable to obtain Review of systems (narrative): Patient intubated and sedated Pulmonology Exam Inpatient Vital signs and Labs for Last 24 Hours: Temp Pulse Resp BP Pulse Ox FiO2 97.7 F 74 20 145/66 H 100 30 10/20/21 08:00 10/20/21 10:00 10/20/21 10:00 10/20/21 10:00 10/20/21 10:00 10/20/21 06:11 Laboratory Results - last 24 hr 10/19/21 19:37: Specimen Source Right brachial, O2 % 50, ABG pH 7.25 L, ABG pCO2 58.0 H, ABG pO2 158.2 H, ABG HCO3 25.0, ABG Total CO2 26.8, ABG O2 Saturation 99, ABG Base Excess -2.1, Tevin Test Patient unable, Tidal Volume 400, PEEP 5 10/19/21 20:20: Urine Color Yellow, Urine Appearance Clear, Urine pH 5.5, Ur Specific [place] >= 1.030, Urine Protein Trace, Urine Glucose (UA) Negative, Urine Ketones Negative, Urine Blood Negative, Urine Nitrate Negative, Urine Bilirubin Negative, Urine Urobilinogen 0.2, Ur Leukocyte Esterase Negative, Urine WBC 3-5, Urine Bacteria 1+ 10/19/21 20:30: WBC 26.8 H*, RBC 3.89 L, Hgb 11.6 L, Hct 36.6 L, MCV 94.2, MCH 29.8, MCHC 31.7 L, RDW 13.9, Plt Count 418, MPV 7.7, Neut % (Auto) 95.6 H, Lymph % (Auto) 1.0 L, [place] % (Auto) 3.0, Eos % (Auto) 0.2, Baso % (Auto) 0.1, Neut # (Auto) 25.6 H, Lymph # (Auto) 0.3 L, [place] # (Auto) 0.8, Eos # (Auto) 0.1, Baso # (Auto) 0.0, Total Counted 100, Neutrophils % (Manual) 96 H, Lymphocytes % (Manual) 3 L, Monocytes % (Manual) 1 L, Platelet Estimate Normal, Ovalocytes 1+ 10/19/21 20:30: Sodium 137, Potassium 4.4, Chloride 96 L, Carbon Dioxide 29, Anion Gap 16.4 H, BUN 8, Creatinine 0.50 L, Estimated Creat Clear 55, Estimated GFR 120, Est GFR ( Amer) 145, Glucose 243 H, Calcium 7.9 L, Total Bilirubin 0.6, AST 33, ALT 17, Alkaline Phosphatase 88, Troponin I < 0.01, Total Protein 6.2 L, Albumin 3.6, Globulin 2.6, Albumin/Globulin Ratio 1.4 10/19/21 20:30: Lactate 2.3 H 10/19/21 21:20: SARS-CoV-2 (PCR) Not detected, Influenza A Untype (PCR) Not detected, Influenza Type B (PCR) Not detected 10/19/21 22:35: Troponin I 0.01 10/20/21 00:25: Lactate 1.2 10/20/21 06:05: WBC 21.1 H*, RBC 3.57 L, Hgb 10.6 L, Hct 33.0 L, MCV 92.4, MCH 29.7, MCHC 32.1, RDW 14.0, Plt Count 358, MPV 8.7, Neut % (Auto) 93.2 H, Lymph % (Auto) 2.7 L, [place] % (Auto) 3.5, Eos % (Auto) 0.4, Baso % (Auto) 0.1, Neut # (Auto) 19.7 H, Lymph # (Auto) 0.6 L, [place] # (Auto) 0.8, Eos # (Auto) 0.1, Baso # (Auto) 0.0, Total Cou
--- NOTE | 2021-10-20 12:13 | PC.NURSE ---
Pt self extubated herself. Pt is now on 40% venturi mask with saturations of 100%.
--- NOTE | 2021-10-20 12:31 | DIET.NUTRFU ---
RD reviewed weights from past office visits, she is thin with BMI of 21.8. She had been gaining up 6# from 01/06 to 07/14 and then maintained for 30 days on 08/07. Now down 2# at 116# possibly decline with PNA. She is a significant smoker. She lives alone. Unable to interview she is on vent. If continues on vent unable to consume oral diet tubefeeding is recommended before she losing more weight. Recommending TF when appropriate- pulmocare at 20ml/hr with goal rate 40ml/hr ATC= 960ml/1440kcal/60gm protein/754ml formula water. calories will need to be adjusted if still on propofol and fluid if IVF in place. She is receiving propofol providing 574kcal and IVF for hydration. Labs reviewed. Will continue to monitor vent status
--- NOTE | 2021-10-20 12:43 | PC.NURSE ---
RESP CARE NOTE: Pt placed on 4 lpm nasal cannula after self extubation, SPO2 at 93%. Will continue to monitor patient.
--- NOTE | 2021-10-20 13:12 | PC.NURSE ---
1200 assessed patient. she was tolerating vent well at that time. no signs of discomfort, or needs at that time. notified respiratory that vent had alarmed and they came up and assessed patient. 1205 noted alarming and upon looking in room it was noted patient had self extubated. placed patient on nonrebreather, and notified respiratory who also notified dr li. instructed at that time to place on venti mask and monitor. 1315 md at bedside stated patient could be made stepdown status. she is currently on 4l
--- NOTE | 2021-10-20 16:16 | PC.NURSE ---
Pt has had visitors at bedside this afternoon. nad noted, pt has tolerated nasal cannula since extubation at approx 1215. chest tube present all this shift, air leak noted as well. MD aware. dressing was replaced and chest tube secured by Dr li earlier in the shift. pt lung sounds contain rhonchi and wheeze with possible faint rub noted. bowel sounds are active in all quads. pt has candie hose in place at this time. pt is alert and oriented times 4. pt is compliant with care but is anxious to have swallow eval (that was ordered by Dr li at approx 1340) so she can have food and ice chips.
--- NOTE | 2021-10-20 18:08 | PC.NURSE ---
Late entry: Called to notify/remind of speech therapy eval at 2:35, 4:06, and 6:05
[2021-10-21] VITALS (21 sets, daily range): BP systolic 121–168; BP diastolic 55–91; PULSE 68–120; RESP 16–28; TEMP 36.8–37.3; O2SAT 91–100
--- NOTE | 2021-10-21 06:38 | PC.NURSE ---
pt rested well this shift, pt's VSS, emv 15, lung sounds clear, right chest tube to suction dressing cdi, chest tube output 30mL this shift, pt on 3LNC with sats 94%, pt has mancuso catheter with good uop, no bowel movement this shift, pt needs swallow eval today, call light within reach
--- NOTE | 2021-10-21 07:32 | DIET.NUTRFU ---
Addendum entered by Gisela Becerril RD, LD 10/21/21 09:27: ANNEALING FURNACE OPERATOR trailed multiple consistencies at bedside, tolerated well. Regular diet thin liquids was ordered for lunch. During rounds patient was sitting up in bed wake and receiving multiple phone calls. Will monitor meal intake to determine if nutritional needs are being met. Original Note: Patient was extubated yesterday, ANNEALING FURNACE OPERATOR eval ordered to determine safest oral diet. Will continue to follow
--- NOTE | 2021-10-21 09:22 | HMH.SLDYSPHA ---
Speech & Language Evaluation Speech/Language Dysphagia Evaluation Start: 10/21/21 08:36 Freq: ONCE Status: Active Protocol: Document 10/21/21 08:36 TAVOSERGEY (Rec: 10/21/21 09:22 GWYN [id number]) Dysphagia Assess/Goals/Plan Assessment Date of Evaluation: 10/21/21 Evaluation Type Initial Certification Assessment/Problems Dysphagia evaluation post self -extubation at 12:05 on 2021 Does Patient Qualify for Service Yes Qualify/Failure Comment Given the results of the bedside dysphaiga assessment, pt would benefit from f/u x1 to ensure diet tolerance. Recommendations PHYSICIAN CERTIFICATION: The specified therapy services are required, authorized, and reviewed every 30 days. Pt will be seen # times/week 1 for # weeks 1 Diet Recommendations Normal Liquid Type Recommendations Normal/Thin SL Swallow Guidelines Standard Aspiration Prec.,Eat at slow rate Dysphagia Swallow Precautions/Strategies Sitting Upright (90 deg),Small Bites and Sips Plan Anticipate reaching STG in # weeks 1 Anticipate reaching LTG in # weeks 1 Pt/Guardian verbally ack understanding Yes of dx/prognosis/goals Pt/Guardian verbally ack understanding Yes of/consent to tx prog G -code Required No STG-Other Comment/Non-Specific Pt will tolerate trials of LRD w/o s/sxs of aspiration. [facility] Goals Diet regular with Liquids Thin Liquids Education Instructions provided Assessment results discussed with pt, nursing, and care management who expressed understanding. Pt/Caregiver able to recall information Able to recall/restate Reinforcement needed No Speech & Language HPI History Present Illness Description of Patient Problem Pt is a 76 y.o female who presented to [facility] ED s/p bronchoscopy 10/19 c/o SOA. Chest x-ray 10/19 revealed moderate right pneumothroax and pt required emergent chest tube and mechanical ventilation. Pt was intubated around 19:30 on 10/19 and she self extubated at 12:05 on . PMH is significant for asthma, follicular brinchitis, COPD, lung mass, interstitial
--- NOTE | 2021-10-21 09:23 | EXP.ACUTE.PN ---
Subjective *Date: 10/21/21 *Time: 20:12 Interval history: 76-year-old female patient sitting up in bed resting quietly talking on phone. She was extubated yesterday and is on 3 L oxygen per nasal cannula today with saturations of 94%. Chest tube remains at -20 cm suction. She reports feeling better tolerating liquids and denies any shortness of breath Medical Exam Vital signs and Labs for Last 24 Hours: Temp Pulse Resp BP Pulse Ox FiO2 98.7 F 85 20 144/68 H 97 30 10/21/21 07:43 10/21/21 08:00 10/21/21 08:00 10/21/21 08:00 10/21/21 08:00 10/20/21 11:14 I & O for Labs for Last 24 Hours: Intake & Output 10/18/21 10/19/21 10/20/21 10/21/21 23:59 23:59 23:59 23:59 Intake Total 1357 / 1357 220 / 220 Output Total 959 / 1859 1255 / 1255 Balance 398 / -502 -1035 / -1035 Weight 160 lb 118 lb 3.213 oz Head: Present atraumatic Eyes: Present as per HPI ENT: Present normal exam and normal oropharynx Neck: Present normal inspection and trachea midline; Absent tenderness Respiratory: Present diminished air movement; Absent accessory muscle use Cardiac: Present Reg Rate and Rhythm GI: Present soft and normal bowel sounds; Absent distention or tenderness Extremities: Present normal inspection and full ROM; Absent tenderness Skin: Present intact, dry and warm; Absent cyanosis or erythema Neuro: Present Motor Function Intact; Absent Numbness Assessment and Plan *Assessment and plan (1) Pneumonia: Status: Acute Qualifiers: Laterality: right Pneumonia type: due to Pseudomonas Category: Medical Code(s): J18.9 - Pneumonia, unspecified organism (2) Acute respiratory failure with hypoxia: Status: Acute Category: Medical Code(s): J96.01 - Acute respiratory failure with hypoxia (3) Hypertension: Status: Acute Qualifiers: Hypertension type: primary hypertension Qualified Code(s): I10 - Essential (primary) hypertension Category: Medical Code(s): I10 - Essential (primary) hypertension (4) ILD (interstitial lung disease): Status: Acute Category: Medical Code(s): J84.9 - Interstitial pulmonary disease, unspecified (5) Pneumothorax: Status: Acute Category: Medical Code(s): J93.9 - Pneumothorax, unspecified Plan 1. Continue current medical management 2. Pulmonary following
--- NOTE | 2021-10-21 09:50 | P.PN_ITS ---
Subjective *Date: 10/21/21 *Time: 12:00 Interval history: No acute respiratory vents overnight patient continued to complain of cough and productive phlegm. Admits chest pain Pulmonology Exam Inpatient Vital signs and Labs for Last 24 Hours: Temp Pulse Resp BP Pulse Ox FiO2 98.7 F 106 H 20 144/68 H 94 L 30 10/21/21 07:43 10/21/21 09:47 10/21/21 08:00 10/21/21 08:00 10/21/21 09:47 10/20/21 11:14 I & O for Labs for Last 24 Hours: Intake & Output 10/18/21 10/19/21 10/20/21 10/21/21 23:59 23:59 23:59 23:59 Intake Total 72 / 1357 / 1357 220 / 220 Output Total 959 / 1859 1255 / 1255 Balance 72 / 398 / -502 -1035 / -1035 Weight 160 lb 118 lb 3.213 oz Microbiology Reports for the Last 24 Hours: Microbiology 10/19/21 19:15 Sputum - Endotracheal Tube Aspirate Gram Stain - Final Head: Present normocephalic and atraumatic ENT: Present normal exam Neck: Present normal inspection Respiratory: Present respiratory distress, diminished air movement and able to speak in complete sentences; Absent accessory muscle use, patient mechanically ventilated, wheezes or crackles Cardiac: Present S1/S2, Tachycardia and radial pulses present GI: Present soft and distention; Absent tenderness or guarding Rectal (female): Present deferred (female): Present deferred Skin: Present intact; Absent cyanosis or jaundice Neuro: Present alert and oriented x 3; Absent awake Extremities: Present normal inspection; Absent clubbing or cyanosis Assessment and Plan *Assessment and plan (1) Pneumothorax: Status: Acute Category: Medical Code(s): J93.9 - Pneumothorax, unspecified (2) Acute respiratory failure with hypoxia: Status: Acute Category: Medical Code(s): J96.01 - Acute respiratory failure with hypoxia (3) Pneumonia: Status: Acute Qualifiers: Pneumonia type: due to Pseudomonas Laterality: right Category: Medical Code(s): J18.9 - Pneumonia, unspecified organism Plan #Pneumothorax: #Pneumonia: Ms. Gracia is 76-year-old female with significant smoking requires a diagnosis of asthma, follicular bronchiolitis following in pulmonary clinic for exertional dyspnea had a bronchoscopy transbronchial biopsy yesterday complicated by pneumothorax presented to the hospital later yesterday for worsening respiratory status found to be having with requiring emergent chest tube placement and mechanical ventilator support for her altered mentation poss ible hypercarbic respiratory failure and pulmonary was called for further management. Status post chest tube placement in the emergency room yesterday, chest x-ray after chest tube showed complete resolution of pneumothorax. Interval update: Extubated to nasal cannula. Respiratory status remained stable. Continue to have chest tube on suction. Titling well. Grade 1 leak Leukocytosis continue to improve, no labs from this morning Plan: -Follow with chest x-ray -Continue cefepime awaiting final bronchoscopy cultures. Pathology nonspecific and not really help narrowing the differential diagnosis. Will discuss with pathologist for the need for further review and additional testing -DuoNebs every 6 hours along with budesonide every 12 scheduled -Change chest tube to waterseal and follow x-ray in 4 hours #Thank for involving pulmonary in this patient care. We will continue to follow.
--- NOTE | 2021-10-21 09:54 | XR_ITS ---
FINAL REPORT CLINICAL HISTORY: Pneumo, hx COPD, asthma, emphysema COMPARISON: October 20, 2021 FINDINGS: PORTABLE CHEST A single portable view of the chest was obtained. The endotracheal and nasogastric tubes have been removed. A right-sided chest tube remains in place. The heart size is within normal limits. 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 The mediastinum is within normal limits. There are worsening bibasilar opacities, atelectasis or pneumonia. There is no definite pneumothorax. There is a small amount of right chest wall air. The bony thorax is intact. IMPRESSION: Worsening bibasilar opacities, atelectasis or pneumonia. Small amount of right chest wall air. No definite pneumothorax. Reviewed, Interpreted and Dictated by Daniel Ramires III, MD Transcribed by Sia Hi Authenticated and . [facility]
--- NOTE | 2021-10-21 13:34 | DIET.NUTRFU ---
saw patient at lunch, her appetite/intake is improving. Continues to receive regular diet. Reports 2 larger meals at home and a light snack. Reports weight gains at home. No dietary concerns at this time.
--- NOTE | 2021-10-21 14:26 | PC.NURSE ---
Pt is alert and oriented x4. Lungs with rhonchi and wheezes and diminished t/o. She remains on 3L NC with O2 sats measuring 95% or greater. Chest tube is to water seal. Approx 10mls of drainage out thus far. Dressing is clean, dry and intact. Her mancuso is to bedside draining yellow urine. Appetite is fair with her eating approx 50% of her meals. She's been NSR on telemetry. She had a bath and full linen change today. She's denied any complaints. Bed is locked and in the lowest position, call light is within reach.
--- NOTE | 2021-10-21 14:50 | PC.NURSE ---
rounded on patient. no questions or concerns. soft drink obtained for patient. patient in middle of breathing treatment at that time. encouraged her to ring out as needed.
[2021-10-22] VITALS (12 sets, daily range): BP systolic 94–136; BP diastolic 51–75; PULSE 75–118; RESP 16–25; TEMP 37.3–37.5; O2SAT 90–96; BMI 22.1
--- NOTE | 2021-10-22 05:38 | PC.NURSE ---
pt rested well throughtout shift, pt's VSS, no c/o pain, right chest tube to water seal with minimal output, pt continues with mancuso catheter with adequate UOP, pt stated will get up to chair again today, emv 15, pt on 3LNC with clear to diminished lung sounds, call light within reach
[2021-10-22 05:53] LABS: Basophils # 0.1 K/mm3 (0-0.2); Basophils % 0.4 % (0.1-2.0); Eosinophils # 0.2 K/mm3 (0.0-0.4); Eosinophils % 0.9 % (0.1-12.0); Hematocrit 32.7 % (37.0-47.0); Hemoglobin 10.3 g/dL (12.2-16.2); Lymphocytes % 4.7 % (10-50); Mean Corpuscular HGB Conc 31.4 g/dL (31.8-35.4); Mean Corpuscular Hemoglobin 29.8 pg (27.0-31.2); Mean Corpuscular Volume 94.7 fl (81-99); Mean Platelet Volume 8.7 fl (7.4-10.4); Monocytes # 0.9 K/mm3 (0.1-1.0); Monocytes % 4.3 % (1.7-9.3); Neutrophils # 18.8 K/mm3 (1.8-7.8); Neutrophils % 89.8 % (37.0-80.0); Platelet Count 333 K/mm3 (142-424); Red Blood Count 3.45 M/mm3 (4.20-5.40); Red Cell Distribution Width 14.3 % (11.5-17.5)
[2021-10-22 05:55] LABS: MANUAL DIFFERENTIAL MANUAL DIFFERENTIAL (MANUAL DIFF)
[2021-10-22 06:20] LABS: Anion Gap 10.6 mEq/L (5-15); Blood Urea Nitrogen 13 mg/dl (7-17); Calcium 7.2 mg/dl (8.4-10.2); Carbon Dioxide 28 mmol/L (22.0-30.0); Chloride 100 mmol/L (98-107); Creatinine Clearance Estimated 41 mL/min (50-200); Estimated Glomerular Filt Rate 120 ml/min (>60); GFR (African American) 145 ML/MIN (>60); Glucose 86 mg/dl (74-100); Potassium 3.6 mmoL/L (3.5-5.1); Sodium 135 mmol/L (136-145)
[2021-10-22 07:00] LABS: Lymphocytes % 7 % (10-50); Monocytes % 4 % (2-9); Neutrophils % 89 % (42-76); Platelet Estimate Normal; RBC Morphology Normal; Total Cells Counted 100
--- NOTE | 2021-10-22 09:39 | HMH.OTEV ---
OT Inpatient Evaluation Rehab OT IP Evaluation Start: 10/22/21 09:30 Freq: ONCE Status: Complete Protocol: Document 10/22/21 09:31 CHELITA (Rec: 10/22/21 09:39 [id number] Rehab OT IP Assessment Subjective History Pt oriented x3 on arrival. Pt agreeable to engage in therapy evaluation. Pt was admitted via ED on 10/19/21 due to respiratory distress. Prior to being in the hospital patient lived at home alone in a mobile home. Pt reports she has 3 steps she must climb to enter the home with a hand rail. Pt claims she was independent with all ADLs and IADLs. Pt did not require any type of AE during ambulation. Pt was very independent and still cared for farm animals. She also still drove. The following information was copied from history and physical report: 46-year-old female patient presented to the [facility] emergency department via EMS after family called squad for patient's O2 saturations of 80 %. Patient had a bronchoscopy yesterday and last evening developed shortness of breath and respiratory distress. Upon arrival squad noted oxygen saturation to be 70% and she was nonresponsive. They administered 2 duo nebs, steroids, and CPAP with no improvement. Emergency department she was found to not have right-sided breath sounds, bedside ultrasound demonstrated no lung movement and initial chest x-ray demonstrated tension and resolution of mediastinal shift and emergent chest tube was placed. Due to patient unable to protect
--- NOTE | 2021-10-22 09:42 | XR_ITS ---
FINAL REPORT CLINICAL HISTORY: Pneumothorax, pneumonia COMPARISON: 10/21/2021 FINDINGS: A single view of the chest was obtained. The heart is normal in size. There is worsening bibasilar atelectasis or pneumonia. A small right pleural effusion appears worse. A right chest tube is in place. There is a small right apical pneumothorax with 11 mm of pleural separation which appears worse as compared to the prior exam. IMPRESSION: Worsening bibasilar atelectasis or pneumonia and small pleural effusion. Worsening small right apical pneumothorax with a chest tube in place. Reviewed, Interpreted and Dictated by Daniel Ramires III, MD Transcribed by Lottie Ward Authenticated and [facility]
--- NOTE | 2021-10-22 10:41 | HMH.PTEV ---
Physical Therapy Evaluation Rehab PT IP Evaluation Start: 10/22/21 09:29 Freq: ONCE Status: Active Protocol: Document 10/22/21 09:50 JESSY (Rec: 10/22/21 10:40 PWCARSON [id number]) Subjective/History History History This is the initial PT IP evaluation for Yamel Diaz, a 76 y/o female admitted to [facility] to treat respiratory failure and tension pneumothorax. Pt was admitted 10/19/21 and had chest tube and ET tube placed. Pt has prior med h/o COPD, exertional dyspnea, asthma, and atypical pneumonia. Written by WILFREDO Fermin Subjective Subjective Pt reports prior to admission, she was living alone in [facility] with 3 steps to enter with HRs. Pt states that after she is medically stable , she is planning to live with her daughter fulltime. Pt reports prior to admission, she was IND with all ADLs and not using an AD. Rehab PT IP Eval Objective Appearance Patient Behavior Appropriate,Cooperative Patient Orientation Person,Place,Name,Birthday, Situation Difficulty following instructions none Speech Pattern Clear,Appropriate,Coherent Ambulation Patient Able to Ambulate Yes Ambulation Observation IP General Gait Pattern Observation Wide Based Gait,Shuffling Step Ambulation Distance (feet) 3 Ambulation Assistive Device None Ambulation Ability Supervision/Stand by,Contact Guard/Hand Hold Balance Ability to Arise Able, uses arms to help Sitting Balance Steady, safe Standing Balance Steady, wide stance Dynamic Sitting Balance Ability Good Dynamic Standing Balance Ability Fair Transfers Bed Transfer Ability Independent Chair Transfer Ability Supervision/Stand by Sit to Stand Bed Transfer Ability Supervision/Stand by,Contact Guard/Hand Hold Rehab PT IP prob,goals,plan Problems Date of Evaluation: 10/22/21 PT IP Problems Transfers,Gait,Balance,Self care,Safety Rehab Potential Rehab Potential Good Equipment Needs Assistive Devices None / NA,Rolling / Wheeled
--- NOTE | 2021-10-22 10:43 | PC.NURSE ---
Pt's chest tube hooked back up to suction
--- NOTE | 2021-10-22 10:51 | DIET.NUTRFU ---
During rounds patient continues to c/o sore throat d/t intubation/extubation process. She trioed to eat chicken last nioght and could not swallow very well d/t it being dry and throat being sore. She passed bedside swallow study, regular diet in place. This RD suggested orders something soft and smooth with protein like pudding/yogurt/cottage cheese or ice cream. She said she would be willing to try chocolate pudding with lunch. Will notify kitchen
--- NOTE | 2021-10-22 10:58 | EXP.ACUTE.PN ---
Subjective *Date: 10/22/21 *Time: 10:58 Interval history: 76-year-old female patient sitting up in bed resting quietly, no reports of shortness of breath during night. Chest tube to waterseal with normal titling. Pulmonology is following and their input is very much appreciated. Oxygenation is 93% on 2 L per nasal cannula. Medical Exam Vital signs and Labs for Last 24 Hours: Temp Pulse Resp BP Pulse Ox FiO2 99.1 F 105 H 20 117/62 90 L 30 10/22/21 03:34 10/22/21 10:47 10/22/21 03:34 10/22/21 03:34 10/22/21 10:47 10/20/21 11:14 Laboratory Results - last 24 hr 10/22/21 05:44: WBC 21.0 H*, RBC 3.45 L, Hgb 10.3 L, Hct 32.7 L, MCV 94.7, MCH 29.8, MCHC 31.4 L, RDW 14.3, Plt Count 333, MPV 8.7, Neut % (Auto) 89.8 H, Lymph % (Auto) 4.7 L, [place] % (Auto) 4.3, Eos % (Auto) 0.9, Baso % (Auto) 0.4, Neut # (Auto) 18.8 H, Lymph # (Auto) 1.0, [place] # (Auto) 0.9, Eos # (Auto) 0.2, Baso # (Auto) 0.1, Total Counted 100, Neutrophils % (Manual) 89 H, Lymphocytes % (Manual) 7 L, Monocytes % (Manual) 4, Platelet Estimate Normal, RBC Morphology Normal 10/22/21 05:44: Sodium 135 L, Potassium 3.6, Chloride 100, Carbon Dioxide 28, Anion Gap 10.6, BUN 13, Creatinine 0.50 L, Estimated Creat Clear 41, Estimated GFR 120, Est GFR ( Amer) 145, Glucose 86, Calcium 7.2 L I & O for Labs for Last 24 Hours: Intake & Output 10/19/21 10/20/21 10/21/21 10/22/21 23:59 23:59 23:59 23:59 Intake Total 72 / 93 1357 / 1357 820 / 920 220 / 220 Output Total 959 / 1859 1955 / 1955 535 / 535 Balance 72 / 93 398 / -502 -1135 / -1035 -315 / -315 Weight 160 lb 118 lb 3.213 oz 120 lb 1 oz Microbiology Reports for the Last 24 Hours: Microbiology 10/19/21 20:30 Blood - Abdominal Blood Culture - Preliminary NO GROWTH AFTER 48 HOURS 10/19/21 20:30 Blood - Abdominal Blood Culture - Preliminary NO GROWTH AFTER 48 HOURS 10/19/21 19:15 Sputum - Endotracheal Tube Aspirate Gram Stain - Final 10/19/21 19:15 Sputum - Endotracheal Tube Aspirate Sputum Culture - Preliminary Gram Negative Rods Head: Present atraumatic Eyes: Present as per HPI ENT: Present normal exam Neck: Present full ROM and trachea midline Respiratory: Present diminished air movement; Absent accessory muscle use Cardiac: Present Reg Rate and Rhythm GI: Present soft and normal bowel sounds; Absent distention, tenderness or guarding Extremities: Present normal inspection, full ROM and normal capillary refill; Absent tenderness Skin: Present dry, warm and wounds; Absent cyanosis or erythema Comment:: Chest tube intact to right side dressing clean/dry/intact Neuro: Present Cranial Nerve 2-12 Intact, Motor Function Intact and oriented x 3 Assessment and Plan *Assessment and plan (1) Pneumonia: Status: Acute Qualifiers: Pneumonia type: due to Pseudomonas Laterality: right Category: Medical Code(s): J18.9 - Pneumonia, unspecified organism (2) Acute respiratory failure with hypoxia: Status: Acute Category: Medical Code(s): J96.01 - Acute respiratory failure with hypoxia (3) ILD (interstitial lung disease): Status: Acute Category: Medical Code(s): J84.9 - Interstitial pulmonary disease, unspecified (4) Chest tube in place: Status: Acute Category: Medical Code(s): Z96.89 - Presence of other specified functional implants (5) Pneumothorax: Status: Acute Category: Medical Code(s): J93.9 - Pneumothorax, unspecified Assessment and plan all Dx Assessment and Plan All Dx:: 1. Continue current medical regimen 2. PT/OT eval 3. Pulmonology following
--- NOTE | 2021-10-22 11:15 | EXP.PULM.PN ---
Subjective *Date: 10/22/21 *Time: 11:15 Interval history: Patient continued to complain of symptoms of shortness of breath. Continues to have cough with productive phlegm. Chest pain. Controlled around the chest tube Pulmonology Exam Inpatient Vital signs and Labs for Last 24 Hours: Temp Pulse Resp BP Pulse Ox FiO2 99.1 F 105 H 20 117/62 90 L 30 10/22/21 03:34 10/22/21 10:47 10/22/21 03:34 10/22/21 03:34 10/22/21 10:47 10/20/21 11:14 Laboratory Results - last 24 hr 10/22/21 05:44: WBC 21.0 H*, RBC 3.45 L, Hgb 10.3 L, Hct 32.7 L, MCV 94.7, MCH 29.8, MCHC 31.4 L, RDW 14.3, Plt Count 333, MPV 8.7, Neut % (Auto) 89.8 H, Lymph % (Auto) 4.7 L, [place] % (Auto) 4.3, Eos % (Auto) 0.9, Baso % (Auto) 0.4, Neut # (Auto) 18.8 H, Lymph # (Auto) 1.0, [place] # (Auto) 0.9, Eos # (Auto) 0.2, Baso # (Auto) 0.1, Total Counted 100, Neutrophils % (Manual) 89 H, Lymphocytes % (Manual) 7 L, Monocytes % (Manual) 4, Platelet Estimate Normal, RBC Morphology Normal 10/22/21 05:44: Sodium 135 L, Potassium 3.6, Chloride 100, Carbon Dioxide 28, Anion Gap 10.6, BUN 13, Creatinine 0.50 L, Estimated Creat Clear 41, Estimated GFR 120, Est GFR ( Amer) 145, Glucose 86, Calcium 7.2 L I & O for Labs for Last 24 Hours: Intake & Output 10/19/21 10/20/21 10/21/21 10/22/21 23:59 23:59 23:59 23:59 Intake Total 1357 / 1357 820 / 920 220 / 220 Output Total 959 / 1859 1955 / 1955 535 / 535 Balance 398 / -502 -1135 / -1035 -315 / -315 Weight 160 lb 118 lb 3.213 oz 120 lb 1 oz Microbiology Reports for the Last 24 Hours: Microbiology 10/19/21 20:30 Blood - Abdominal Blood Culture - Preliminary NO GROWTH AFTER 48 HOURS 10/19/21 20:30 Blood - Abdominal Blood Culture - Preliminary NO GROWTH AFTER 48 HOURS 10/19/21 19:15 Sputum - Endotracheal Tube Aspirate Gram Stain - Final 10/19/21 19:15 Sputum - Endotracheal Tube Aspirate Sputum Culture - Preliminary Gram Negative Rods Head: Present normocephalic and atraumatic ENT: Present normal exam Neck: Present normal inspection Respiratory: Present respiratory distress, rhonchi, diminished air movement and able to speak in complete sentences; Absent accessory muscle use, patient mechanically ventilated, wheezes or crackles Cardiac: Present S1/S2, Tachycardia and radial pulses present GI: Present soft and distention; Absent tenderness or guarding Rectal (female): Present deferred (female): Present deferred Skin: Present intact; Absent cyanosis or jaundice Neuro: Present alert and oriented x 3; Absent awake Extremities: Present normal inspection; Absent clubbing or cyanosis Assessment and Plan *Assessment and plan (1) Pneumothorax: Status: Acute Category: Medical Code(s): J93.9 - Pneumothorax, unspecified (2) Acute respiratory failure with hypoxia: Status: Acute Category: Medical Code(s): J96.01 - Acute respiratory failure with hypoxia (3) Pneumonia: Status: Acute Qualifiers: Pneumonia type: due to Pseudomonas Laterality: right Category: Medical Code(s): J18.9 - Pneumonia, unspecified organism Plan #Pneumothorax: #Pneumonia: Ms. Garcia is 76-year-old female with significant smoking requires a diagnosis of asthma, follicular bronchiolitis following in pulmonary clinic for exertional dyspnea had a bronchoscopy transbronchial biopsy yesterday complicated by pneumothorax presented to the hospital later yesterday for worsening respiratory status found to be having with requiring emergent chest tube placement and mechanical ventilator support for her altered mentation possible hypercarbic respiratory failure and pulmonary was called for further management. Status post chest tube placement in the emergency room yesterday, chest x-ray after chest tube showed complete resolution of pneumothorax. Interval update: Continue to
--- NOTE | 2021-10-22 11:55 | PC.NURSE ---
tube clamped per Dr Caballero
--- NOTE | 2021-10-22 15:30 | XR_ITS ---
FINAL REPORT CLINICAL HISTORY: Pneumothorax COMPARISON: 6 hours prior FINDINGS: A single view of the chest was obtained. The heart is normal in size. There are persistent bibasilar opacities and a small right pleural effusion. A right chest tube remains in place. There has been interval improvement in the right pneumothorax. There is a persistent small right apical pneumothorax with 6 mm of pleural separation. There is a small amount of air in the right lateral chest wall. IMPRESSION: Persistent small right apical pneumothorax with 6 mm of pleural separation. Persistent bibasilar opacities and a small right pleural effusion. Reviewed, Interpreted and Dictated by Daniel Ramires III, MD Transcribed by Lottie Ward Authenticated and . [facility]
--- NOTE | 2021-10-22 16:42 | ECG_ITS ---
APPROVED REPORT Exam: Resting ECG HR:147 bpm ECG Measurements Heart Rate 147 AXES QRSd 93 QRS 52 QT 269 T -4 QTc 353 Conclusion ATRIAL FIBRILLATION WITH RAPID VENTRICULAR RESPONSE NONSPECIFIC ST & T-WAVE ABNORMALITY ABNORMAL RHYTHM ECG UNCONFIRMED REPORT Electronically signed by : Raymond Griffith MD 10/24/2021 09:54:36
--- NOTE | 2021-10-22 18:02 | PC.NURSE ---
1700 - Pt's HR jumped to 180's and was maintaining 150-180's. Vagal maneuvers were attempted but were unsuccessful. Dr Damon who was horizontal boring mill set up operator for Dr Gonzalez was notified. 5mg IV metoprolol once was ordered. 1726 - HR lowered to 120's-140's. Pt remained asymptomatic, Dr Damon notified of results. He requested Mag and CMP be drawn. Another dose of 5MG IV metoprolol was ordered along with 25mg po metoprolol tartrate q6hrs. If patients BP were to become soft 500mg IV bolus could be given.
[2021-10-22 18:34] LABS: Chloride 98 mmol/L (98-107); Potassium 3.6 mmoL/L (3.5-5.1); Sodium 132 mmol/L (136-145)
[2021-10-22 18:36] LABS: Alanine Aminotransferase 16 U/L (12-78); Aspartate Amino Transferase 30 U/L (14-36); Blood Urea Nitrogen 11 mg/dl (7-17); Creatinine Clearance Estimated 41 mL/min (50-200); Estimated Glomerular Filt Rate 120 ml/min (>60); GFR (African American) 145 ML/MIN (>60)
[2021-10-22 18:37] LABS: Albumin/Globulin Ratio 1.2 (1.1-1.8); Alkaline Phosphatase 78 U/L (38-126); Anion Gap 8.6 mEq/L (5-15); Bilirubin,Total 0.3 mg/dl (0.2-1.3); Calcium 7.5 mg/dl (8.4-10.2); Carbon Dioxide 29 mmol/L (22.0-30.0); Globulin 2.5 g/dL (1.3-3.2); Glucose 117 mg/dl (74-100); Magnesium 1.7 mg/dl (1.6-2.3); Total Protein,Serum 5.5 g/dl (6.3-8.2)
--- NOTE | 2021-10-22 18:54 | PC.NURSE ---
Pt chest tube to water seal per MD request
[2021-10-23] VITALS (12 sets, daily range): BP systolic 103–137; BP diastolic 41–72; PULSE 69–110; RESP 18–24; TEMP 36.8–37.4; O2SAT 90–97; BMI 21.8
--- NOTE | 2021-10-23 04:18 | PC.NURSE ---
Addendum entered by Katelynn Medeiros RN 10/23/21 05:50: pt's chest tube draining increased amount of sanguineous drainage into pleuravac, output for 24 hours (since yesterday morning I&O) is 70mL; pt getting up to bsc with assist with barely adequate UOP for 12 hours (325mL), pt's oxygen saturations decreased when pt gets up to bsc and takes a little while to recover when gets back to bed, pt coughing more than previous shift but non-productive, no bowel movement this shift Original Note: Pt is alert and oriented x4, pt has had no complaints this shift. Pt used the BSC with 1 assist. Chest tube in place, dressing scant amount of serosanguineous drainage. Pt HR has been 65-96. SBP 103-137. Pt O2 sat >95% on 4L NC. Weaned O2 to 3L NC, O2 sat remains 97%. Pt lung sounds are clear. Abdomen soft and nontender, bowel sounds active. Call light in reach and working.
--- NOTE | 2021-10-23 06:00 | XR_ITS ---
PROCEDURE INFORMATION: Exam: XR Chest Exam date and time: 10/23/2021 5:08 AM Age: 76 years old Clinical indication: Condition or disease and device placement; Chest tube; Lung condition and disease; Pneumonia; Additional info: Pneumo, right chest tube TECHNIQUE: Imaging protocol: Radiologic exam of the chest. Views: 1 view. COMPARISON: CR XR CHEST PORTABLE 10/22/2021 3:24 PM FINDINGS: Lungs: Diffuse chronic pulmonary fibrosis is unchanged. Right-sided effusion and right lung base infiltrate are noted. Pleural spaces: Moderate right pleural effusion. No pneumothorax. Heart/Mediastinum: Unremarkable. No cardiomegaly. Bones/joints: Unremarkable. IMPRESSION: Stable right lung base infiltrate and effusion.
[2021-10-23 06:52] LABS: Basophils # 0.1 K/mm3 (0-0.2); Basophils % 0.2 % (0.1-2.0); Eosinophils # 0.3 K/mm3 (0.0-0.4); Eosinophils % 1.1 % (0.1-12.0); Hematocrit 33.2 % (37.0-47.0); Hemoglobin 10.8 g/dL (12.2-16.2); Lymphocytes # 1.1 K/mm3 (0.7-4.5); Lymphocytes % 4.2 % (10-50); Mean Corpuscular HGB Conc 32.6 g/dL (31.8-35.4); Mean Corpuscular Volume 91.9 fl (81-99); Mean Platelet Volume 8.6 fl (7.4-10.4); Monocytes # 1.3 K/mm3 (0.1-1.0); Monocytes % 4.9 % (1.7-9.3); Neutrophils # 24.7 K/mm3 (1.8-7.8); Neutrophils % 89.7 % (37.0-80.0); Platelet Count 347 K/mm3 (142-424); Red Blood Count 3.61 M/mm3 (4.20-5.40); Red Cell Distribution Width 13.8 % (11.5-17.5); White Blood Count 27.6 K/mm3 (4.8-10.8)
[2021-10-23 06:56] LABS: MANUAL DIFFERENTIAL MANUAL DIFFERENTIAL (MANUAL DIFF)
--- NOTE | 2021-10-23 07:37 | P.PN_ITS ---
Subjective *Date: 10/23/21 *Time: 07:37 Medical Exam Vital signs and Labs for Last 24 Hours: Temp Pulse Resp BP Pulse Ox FiO2 98.5 F 74 22 107/49 L 93 L 30 10/23/21 04:00 10/23/21 06:22 10/23/21 04:00 10/23/21 04:00 10/23/21 06:22 10/20/21 11:14 Laboratory Results - last 24 hr 10/22/21 18:10: Magnesium 1.7 10/22/21 18:10: Sodium 132 L, Potassium 3.6, Chloride 98, Carbon Dioxide 29, Anion Gap 8.6, BUN 11, Creatinine 0.50 L, Estimated Creat Clear 41, Estimated GFR 120, Est GFR ( Amer) 145, Glucose 117 H D, Calcium 7.5 L, Total Bilirubin 0.3, AST 30, ALT 16, Alkaline Phosphatase 78, Total Protein 5.5 L, Albumin 3.0 L, Globulin 2.5, Albumin/Globulin Ratio 1.2 10/23/21 05:55: WBC 27.6 H* D, RBC 3.61 L, Hgb 10.8 L, Hct 33.2 L, MCV 91.9, MCH 30.0, MCHC 32.6, RDW 13.8, Plt Count 347, MPV 8.6, Neut % (Auto) 89.7 H, Lymph % (Auto) 4.2 L, [place] % (Auto) 4.9, Eos % (Auto) 1.1, Baso % (Auto) 0.2, Neut # (Auto) 24.7 H, Lymph # (Auto) 1.1, [place] # (Auto) 1.3 H, Eos # (Auto) 0.3, Baso # (Auto) 0.1 I & O for Labs for Last 24 Hours: Intake & Output 10/20/21 10/21/21 10/22/21 10/23/21 23:59 23:59 23:59 23:59 Intake Total 1357 / 1357 820 / 920 1140 / 1140 210 / 210 Output Total 959 / 1859 1954 / 1954 395 / 395 Balance 398 / -502 -1135 / -1035 -895 / -895 -185 / -185 Weight 53.615 kg 54.459 kg 53.751 kg The patient's infection will respond to the chosen ABx?: Yes (empiric therapy) Is the patient receiving the right drug, dose, and route?: Yes Could a more targeted ABx be ordered?: No (cultures still pending)
[2021-10-23 07:46] LABS: Anion Gap 12.7 mEq/L (5-15); Blood Urea Nitrogen 12 mg/dl (7-17); Calcium 7.7 mg/dl (8.4-10.2); Carbon Dioxide 29 mmol/L (22.0-30.0); Chloride 95 mmol/L (98-107); Creatinine Clearance Estimated 41 mL/min (50-200); Estimated Glomerular Filt Rate 120 ml/min (>60); GFR (African American) 145 ML/MIN (>60); Glucose 75 mg/dl (74-100); Potassium 3.7 mmoL/L (3.5-5.1); Sodium 133 mmol/L (136-145)
--- NOTE | 2021-10-23 08:51 | EXP.ACUTE.PN ---
Subjective *Date: 10/23/21 *Time: 17:00 Interval history: 76-year-old female patient sitting up in bed resting quietly she denies any respiratory distress during the night. Chest tube has been to waterseal overnight and has good tideling with inspirations. During the night she did go into atrial fibrillation with RVR, she was given metoprolol and converted back to sinus rhythm, she denies any chest pain and cardiology consulted Medical Exam Vital signs and Labs for Last 24 Hours: Temp Pulse Resp BP Pulse Ox FiO2 98.5 F 74 22 107/49 L 93 L 30 10/23/21 04:00 10/23/21 06:22 10/23/21 04:00 10/23/21 04:00 10/23/21 06:22 10/20/21 11:14 Laboratory Results - last 24 hr 10/22/21 18:10: Magnesium 1.7 10/22/21 18:10: Sodium 132 L, Potassium 3.6, Chloride 98, Carbon Dioxide 29, Anion Gap 8.6, BUN 11, Creatinine 0.50 L, Estimated Creat Clear 41, Estimated GFR 120, Est GFR ( Amer) 145, Glucose 117 H D, Calcium 7.5 L, Total Bilirubin 0.3, AST 30, ALT 16, Alkaline Phosphatase 78, Total Protein 5.5 L, Albumin 3.0 L, Globulin 2.5, Albumin/Globulin Ratio 1.2 10/23/21 05:55: WBC 27.6 H* D, RBC 3.61 L, Hgb 10.8 L, Hct 33.2 L, MCV 91.9, MCH 30.0, MCHC 32.6, RDW 13.8, Plt Count 347, MPV 8.6, Neut % (Auto) 89.7 H, Lymph % (Auto) 4.2 L, [place] % (Auto) 4.9, Eos % (Auto) 1.1, Baso % (Auto) 0.2, Neut # (Auto) 24.7 H, Lymph # (Auto) 1.1, [place] # (Auto) 1.3 H, Eos # (Auto) 0.3, Baso # (Auto) 0.1 10/23/21 05:55: Sodium 133 L, Potassium 3.7, Chloride 95 L, Carbon Dioxide 29, Anion Gap 12.7, BUN 12, Creatinine 0.50 L, Estimated Creat Clear 41, Estimated GFR 120, Est GFR ( Amer) 145, Glucose 75 D, Calcium 7.7 L I & O for Labs for Last 24 Hours: Intake & Output 10/20/21 10/21/21 10/22/21 10/23/21 23:59 23:59 23:59 23:59 Intake Total 1357 / 1357 820 / 920 1140 / 1140 210 / 210 Output Total 959 / 1859 1954 395 / 395 Balance 398 / -502 -1135 / -1035 -895 / -895 -185 / -185 Weight 118 lb 3.213 oz 120 lb 1 oz 118 lb 8 oz Head: Present atraumatic ENT: Present normal exam Neck: Present normal inspection and trachea midline Respiratory: Present rhonchi and wheezes; Absent accessory muscle use Cardiac: Present Reg Rate and Rhythm GI: Present soft and normal bowel sounds; Absent distention or tenderness Extremities: Present normal inspection and full ROM; Absent tenderness Skin: Present intact and dry; Absent cyanosis or erythema Neuro: Present Motor Function Intact; Absent Numbness Assessment and Plan *Assessment and plan (1) Atrial fibrillation: Status: Acute Qualifiers: Atrial fibrillation type: paroxysmal Qualified Code(s): I48.0 - Paroxysmal atrial fibrillation Category: Medical Code(s): I48.91 - Unspecified atrial fibrillation (2) Pneumothorax: Status: Acute Category: Medical Code(s): J93.9 - Pneumothorax, unspecified (3) Bronchitis: Status: Chronic Category: Medical Code(s): J40 - Bronchitis, not specified as acute or chronic (4) Hypertension: Status: Acute Qualifiers: Hypertension type: primary hypertension Qualified Code(s): I10 - Essential (primary) hypertension Category: Medical Code(s): I10 - Essential (primary) hypertension (5) Chest tube in place: Status: Acute Category: Medical Code(s): Z96.89 - Presence of other specified functional implants (6) Pneumonia: Status: Acute Qualifiers: Pneumonia type: due to Pseudomonas Laterality: right Category: Medical Code(s): J18.9 - Pneumonia, unspecified organism (7) Acute respiratory failure with hypoxia: Status: Acute Category: Medical Code(s): J96.01 - Acute respiratory failure with hypoxia Assessment and plan all Dx Assessment and Plan All Dx:: 1. Continue current medical regimen 2. Chest tube to waterseal 3. Pulmonology following 4. Cardiology consult
[2021-10-23 09:00] LABS: Anisocytosis 1+; Hypochromasia 1+; Lymphocytes % 3 % (10-50); Monocytes % 5 % (2-9); Neutrophils % 92 % (42-76); Ovalocytes 1+; Platelet Estimate Normal; Total Cells Counted 100
--- NOTE | 2021-10-23 09:29 | EXP.PULM.PN ---
Subjective *Date: 10/23/21 *Time: 11:25 Interval history: No acute respiratory vents overnight. Point patient continued to have cough and productive phlegm. Pulmonology Exam Inpatient Vital signs and Labs for Last 24 Hours: Temp Pulse Resp BP Pulse Ox FiO2 98.5 F 74 22 107/49 L 93 L 30 10/23/21 04:00 10/23/21 06:22 10/23/21 04:00 10/23/21 04:00 10/23/21 06:22 10/20/21 11:14 Laboratory Results - last 24 hr 10/22/21 18:10: Magnesium 1.7 10/22/21 18:10: Sodium 132 L, Potassium 3.6, Chloride 98, Carbon Dioxide 29, Anion Gap 8.6, BUN 11, Creatinine 0.50 L, Estimated Creat Clear 41, Estimated GFR 120, Est GFR ( Amer) 145, Glucose 117 H D, Calcium 7.5 L, Total Bilirubin 0.3, AST 30, ALT 16, Alkaline Phosphatase 78, Total Protein 5.5 L, Albumin 3.0 L, Globulin 2.5, Albumin/Globulin Ratio 1.2 10/23/21 05:55: WBC 27.6 H* D, RBC 3.61 L, Hgb 10.8 L, Hct 33.2 L, MCV 91.9, MCH 30.0, MCHC 32.6, RDW 13.8, Plt Count 347, MPV 8.6, Neut % (Auto) 89.7 H, Lymph % (Auto) 4.2 L, [place] % (Auto) 4.9, Eos % (Auto) 1.1, Baso % (Auto) 0.2, Neut # (Auto) 24.7 H, Lymph # (Auto) 1.1, [place] # (Auto) 1.3 H, Eos # (Auto) 0.3, Baso # (Auto) 0.1, Total Counted 100, Neutrophils % (Manual) 92 H, Lymphocytes % (Manual) 3 L, Monocytes % (Manual) 5, Platelet Estimate Normal, Hypochromasia 1+, Anisocytosis 1+, Ovalocytes 1+ 10/23/21 05:55: Sodium 133 L, Potassium 3.7, Chloride 95 L, Carbon Dioxide 29, Anion Gap 12.7, BUN 12, Creatinine 0.50 L, Estimated Creat Clear 41, Estimated GFR 120, Est GFR ( Amer) 145, Glucose 75 D, Calcium 7.7 L I & O for Labs for Last 24 Hours: Intake & Output 10/20/21 10/21/21 10/22/21 10/23/21 23:59 23:59 23:59 23:59 Intake Total 1357 / 1357 820 / 920 1140 / 1140 210 / 210 Output Total 959 / 1859 1954 / 1954 395 / 395 Balance 398 / -502 -1135 / -1035 -895 / -895 -185 / -185 Weight 118 lb 3.213 oz 120 lb 1 oz 118 lb 8 oz Microbiology Reports for the Last 24 Hours: Microbiology 10/19/21 20:30 Blood - Abdominal Blood Culture - Preliminary NO GROWTH AFTER 48 HOURS 10/19/21 20:30 Blood - Abdominal Blood Culture - Preliminary NO GROWTH AFTER 48 HOURS 10/19/21 19:15 Sputum - Endotracheal Tube Aspirate Gram Stain - Final 10/19/21 19:15 Sputum - Endotracheal Tube Aspirate Sputum Culture - Preliminary Gram Negative Rods Head: Present normocephalic and atraumatic ENT: Present normal exam Neck: Present normal inspection Respiratory: Present respiratory distress, rhonchi, diminished air movement and able to speak in complete sentences; Absent accessory muscle use, patient mechanically ventilated, wheezes or crackles Cardiac: Present S1/S2, Tachycardia and radial pulses present GI: Present soft and distention; Absent tenderness or guarding Rectal (female): Present deferred (female): Present deferred Skin: Present intact; Absent cyanosis or jaundice Neuro: Present alert and oriented x 3; Absent awake Extremities: Present normal inspection; Absent clubbing or cyanosis Assessment and Plan *Assessment and plan (1) Pneumothorax: Status: Acute Category: Medical Code(s): J93.9 - Pneumothorax, unspecified (2) Acute respiratory failure with hypoxia: Status: Acute Category: Medical Code(s): J96.01 - Acute respiratory failure with hypoxia (3) Pneumonia: Status: Acute Qualifiers: Laterality: right Pneumonia type: due to Pseudomonas Category: Medical Code(s): J18.9 - Pneumonia, unspecified organism Plan #Pneumothorax: #Pneumonia: #Right pleural effusion #Bronchiectasis Ms. Garcia is 76-year-old female with significant smoking requires a diagnosis of asthma, follicular bronchiolitis following in pulmonary clinic for exertional dyspnea had a bronchoscopy transbronchial biopsy yesterday complicated by pneumothorax presented to the hospital lat
--- NOTE | 2021-10-23 09:57 | DIET.NUTRFU ---
Saw patient this AM to review po intake. This AM she had only consumed 25% of cream of wheat. She reports at home she doesn't eat until after 10am. She still complains of sore throat from extaubation. She did report for dinner she consumed soup and chocolate pudding. She agreed to try boost clear with meals for extra calories and protein until appetite improves. She reports good appetite at home.
--- NOTE | 2021-10-23 10:12 | PC.NURSE ---
right chest tube removed by Dr. Caballero. [address] Caballero and covered with vaseline gauze, 4x4, and tegaderm. No c/o dypsnea.
--- NOTE | 2021-10-23 10:42 | CA_ITS ---
APPROVED REPORT EXAM: Comprehensive 2D, Doppler, and color-flow Echocardiogram Reduction Furnace Operator: Geneva Oglesby RVT Ht: 5 ft 1 in Wt: 118lbs BSA: 1.51 BP: 107/49 mmHg Indications: SOA,PNEUMONIA,PNEUMOTHORAX,COPD,SMOKER,HTN TDS-PT COUGHING AND VERY TACHYCARDIC,BEST EXAM 2D Dimensions LVOT 1.98 cm (M/F) 1.5-2.5 LA Volume 23.60 mL LA Volume Index 15.62 mL/m2 (M/F) 16-34 M-Mode Dimensions RVDd 1.78 cm (0.9-2.6) LA Diam 2.74 cm (1.9-4.0) LVDd 3.42 cm (3.5-5.7) Ao Diam 2.51 cm (2.0-3.7) LVDs 2.16 cm (3.5-5.7) IVSd 1.08 cm (0.6-1.1) PWd 0.51 cm (0.6-1.1) EF (Teich) 67.80% FS 36.80% EDV (Teich) 48.10 mL TAPSE 1.35 (<1.7) ESV (Teich) 15.50 mL LV Diastology E Decel Time 150.00 (160-240 msec) E/A Ratio 1.0 MED E' 7.00 (< 7 cm/sec) E'/MED E' Ratio 12.76 (>14) LAT E' 9.20 (<10 cm/sec) E/LAT E' Ratio 9.71 (>14) Aortic Valve AO Peak GR. 7.30 mmHg Mitral Valve MV E Max Jozef. 89.00 (40-130 cm/s) MV A Velocity 85.00 (40-130 cm/s) E/A Ratio 1.05 MV Decel. Time 150.00 (160-240 ms) MV PHT 44.00 ms Pulmonary Valve PV Peak Velocity 103.00 (50-150 cm/s) Tricuspid Valve TR P. Velocity 268.00 cm/s RAP Estimate 10.00 mmHg RVSP 38.80 mmHg Left Ventricle Technically difficult study because of the patient factors and poor acoustic windows. Left atrium is mildly enlarged, left ventricle is normal size mild concentric left ventricular hypertrophy, estimated ejection fraction 50% with no regional wall motion abnormality, diastolic parameters are inconclusive. Right Ventricle Right atrium and right ventricle are mildly enlarged with normal contractility. Aortic Valve Aortic valve is minimally thickened and fibrosed there is no aortic stenosis or aortic insufficiency. Mitral Valve Mitral valve grossly normal, there is mild mitral regurgitation. Tricuspid Valve Tricuspid valve is grossly normal, there is mild tricuspid regurgitation, calculated right ventricular systolic pressure 38 mmHg. Pulmonic Valve Pulmonic valve is poorly visualized. Great Vessels Aortic root is normal size. Inferior vena cava is poorly visualized. Pericardium No significant pericardial effusion noted. Conclusion 1. Biatrial enlargement, normal left ventricular size, mild concentric left ventricular hypertrophy, estimated ejection fraction 50% with no regional wall motion abnormality, diastolic parameters are inconclusive. 2. Mildly enlarged right ventricle with normal contractility. 3. Mild mitral and tricuspid regurgitation. Calculated right ventricular systolic pressure 38 mmHg. 4. No significant pericardial failure. 5. Inferior vena cava is poorly visualized. Electronically signed by : Blair Ramirez MD 10/25/2021 09:19:28
--- NOTE | 2021-10-23 10:54 | EXP.CARD.CON ---
Documented by User: Juliette Paris APRN 10/23/21 11:06 History of Present Illness History of Present Illness Consult date: 10/23/21 Requesting physician: Giorgio Gonzalez Consult reason: atrial fibrillation Chief complaint: SOA History of present illness: This is a 76-year-old white female who presented to the emergency department with acute respiratory failure with hypoxia. She underwent bronchoscopy which was complicated by a pneumothorax as an outpatient and then presented to the hospital later with worsening respiratory status and had to have any emergent chest tube placement and mechanical ventilator support. The patient is now extubated and she has had complete resolution of her pneumothorax. The patient did go into atrial fibrillation with RVR. She was treated with metoprolol and converted back to sinus rhythm. Cardiology has been consulted. She denies any chest pain or pressure. She states she has chronic shortness of breath which is significantly improved since being in the hospital. She denies any lower extremity edema. She denies any fever, chills, nausea, vomiting, diarrhea, PND or orthopnea. The patient does report that she saw a tenterer at [facility] not too long ago and had a complete cardiology work-up at that time for syncope. She states that her syncope was not heart related. She remains in sinus rhythm this morning and states that she feels really good. [facility] Medical History (Updated 10/23/21 @ 11:00 by Juliette Paris APRN) Acute respiratory failure with hypoxia Asthma Atrial fibrillation Atypical pneumonia Bronchiectasis with (acute) exacerbation Bronchiolitis Bronchitis Chest tube in place Chronic respiratory failure with hypoxia COPD (chronic obstructive pulmonary disease) case management patient Exertional dyspnea Hypertension ILD (interstitial lung disease) Lung mass Moderate persistent asthma On mechanically assisted ventilation Pneumonia Pneumothorax 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 Surgical History History of section Family History Family history of heart attack Social History (Updated 10/20/21 @ 02:52 by Yocasta Cool, CECILY) Smoking Status: Unknown if ever smoked alcohol intake: never substance use type: denies use current occupational status: retired Travel in the last 8 weeks: None housing: house caffeine: Yes Review of Systems Review of Systems Review of systems:: pertinent systems reviewed and negative unless documented below Constitutional Constitutional: Reports system reviewed and no additional complaints, except as documented Eyes Eyes: Reports system reviewed and no additional complaints, except as documented ENT Ears, Nose, Mouth, and Throat: Reports system reviewed and no additional complaints, except as documented *Cardiovascular Cardiovascular: Reports system reviewed and no additional complaints, except as documented, Denies chest pain, Reports dyspnea and Reports dyspnea on exertion *Respiratory Respiratory: Reports system reviewed and no additional complaints, except as documented, Reports chest congestion, Reports cough, Reports dyspnea and Reports dyspnea on exertion *Gastrointestinal Gastrointestinal: Reports system reviewed and no additional complaints, except as documented *Musculoskeletal Musculoskeletal: Reports system reviewed and no additional complaints, except as documented Integumentary/Breasts Skin/Breast: Reports system reviewed and no additional complaints, except as documented *Neurologic Neurologic: Reports system reviewed and no additional complaints, except as documented Psychiatric Psychiatric: Reports system reviewed and no additional complaints, except as documented Endocrine Endocrine: Reports system reviewed and no additional complaints, except as documented Hematologic/Lymphatic Hematologic/Lymphatic: Reports
--- NOTE | 2021-10-23 11:30 | XR_ITS ---
FINAL REPORT CLINICAL HISTORY: Pneumo COMPARISON: 6 hours prior FINDINGS: There has been interval removal of the right-sided chest tube. The heart size is normal. The mediastinum is normal. There is persistent right base atelectasis or pneumonia. There is a small right pleural effusion. There right chest wall air persists. There is persistent, mild left basilar atelectasis. There is a small right apical pneumothorax with up to 8 mm of pleural separation. IMPRESSION: Small right apical pneumothorax. Persistent right base atelectasis or pneumonia with a small right pleural effusion. Reviewed, Interpreted and Dictated by Daniel Ramires III, MD Transcribed by Elver Radford Authenticated and [facility]
--- NOTE | 2021-10-23 14:22 | PC.NURSE ---
Addendum entered by Katelin Horton RN 10/23/21 15:03: patient up to bsc, noted blood in urine along with a blood clot in the commode. breyl medrano paged md office. Addendum entered by Katelin Horton RN 10/23/21 14:39: did note when patient sat on bedside commode she stated it pinched her leg very small area noted that could be source of pink in urine Original Note: rounded on patient. no questions or concerns. assisted to bedside commode. noted urine was pink in color. no needs voiced. encouraged patient to ring out as needed. call light handed to patient.
--- NOTE | 2021-10-23 14:36 | XR_ITS ---
FINAL REPORT CLINICAL HISTORY: Confirm PICC line placement COMPARISON: 4 hours prior FINDINGS: A single view of the chest was obtained. A new left PICC line is present with the tip in the mid SVC. The heart is normal in size. There are persistent bibasilar opacities which may represent atelectasis or pneumonia. There is a small right pleural effusion. There is a small but increased right pneumothorax with 13 mm of pleural separation. There is a small amount of right chest wall air. IMPRESSION: New left PICC line with the tip in the mid SVC. Persistent bibasilar opacities, atelectasis or pneumonia with a small right pleural effusion. Small but increased right pneumothorax, now with 13 mm of pleural separation. Reviewed, Interpreted and Dictated by Daniel Ramires III, MD Transcribed by Lottie Ward Authenticated and . [facility]
--- NOTE | 2021-10-23 14:48 | SW/DCPLANNER ---
Addendum entered by [facility] 10/29/21 09:52: Updated patient information has been faxed to Sadia / [facility]. Discharge date is unknown at this time. Addendum entered by [facility] 10/28/21 09:46: I will fax updated to Sadia / [facility] and [facility] today. Discharge date is unknown at this time. Addendum entered by [facility] 10/27/21 10:34: I have spoke with patient's daughter today regarding patient not being able for discharge at this time. I will continue to update patient's daughter. Addendum entered by [facility] 10/27/21 07:28: This patient has been approved per insurance for SNF at [facility]. I have updated Sadia sosa/ [facility] that per Pulm patient is not ready for discharge at this time. I will continue to follow up with [facility] until patient is medically stable for discharge. Addendum entered by [facility] 10/26/21 13:29: Per Devorah w/ BRIAN daughter has been updated regarding precert is still pending at this time. Addendum entered by [facility] 10/26/21 13:28: Sadia w/ [facility] has stated that precert is still pending at this time. BRIAN attempted to contact patient's daughter with no answer at this time. Addendum entered by [facility] 10/23/21 15:30: [facility]/ [facility] has started a precert on this patient. Original Note: This patient will require 14 days of IV antibiotics at time of discharge. I spoke with patient regarding plans for discharge and IV antibiotics at time of discharge. Patient is agreeable to placement for IV antibiotics and PT at [facility] or [facility]. I attempted to call Admissions at [facility] w/ no answer but VM left. I spoke w/ Sadia at [facility] and she stated that she does have beds available. I have faxed patient information to both facilities at this time. I have updated patient and she is agreeable to plan. I will also call and update patient's family and MD. Patient is medically stable for discharge.
--- NOTE | 2021-10-23 15:23 | PC.NURSE ---
Notified Dr. Avalos and Ara Paris that pt has had 2 episodes of hematuria with clots present. Pt received 1st dose of Lovenox today @ noon.
--- NOTE | 2021-10-23 15:29 | PC.NURSE ---
received new orders from Ara Paris: urology consult on Tuesday, bladder ultrasound, and STOP Lovenox.
--- NOTE | 2021-10-23 15:33 | US_ITS ---
PROCEDURE INFORMATION: Exam: US Pelvis Limited, Bladder Exam date and time: 10/23/2021 4:52 PM Age: 76 years old Clinical indication: Bladder; Hematuria; Additional info: New onset hematuria TECHNIQUE: Imaging protocol: Real-time pelvic ultrasound with image documentation. COMPARISON: No relevant prior studies available. FINDINGS: Urinary bladder: Prevoid bladder volume is 256 mL and postvoid volume is 45 mL. Ureteral jets are noted. Mild bladder wall thickening. Focal bladder masses noted inferiorly measuring up to 1 cm. IMPRESSION: 1. Prevoid bladder volume is 256 mL and postvoid volume is 45 mL. 2. Mild bladder wall thickening. 3. Focal bladder masses noted inferiorly measuring up to 1 cm.
--- NOTE | 2021-10-23 16:23 | US_ITS ---
PROCEDURE INFORMATION: Exam: US Retroperitoneal; Complete; Kidneys and Bladder Exam date and time: 10/23/2021 5:05 PM Age: 76 years old Clinical indication: Other: Hematuria; Additional info: New onset hematuria TECHNIQUE: Imaging protocol: Real-time ultrasound of the retroperitoneum with image documentation. Complete exam focused on the kidneys and bladder. COMPARISON: US URINARY BLADDER 10/23/2021 4:52 PM FINDINGS: Right kidney: Right kidney measures 11.5 x 4.2 x 4.2 cm. No evidence of renal masses, calcifications or obstructive uropathy. Left kidney: Left kidney measures 10.1 x 4.9 x 4.6 cm. Spleen: Mildly decreased blood flow noted to both kidneys. Views of the spleen are normal. IMPRESSION: 1. Mildly decreased blood flow noted to both kidneys. 2. No evidence of renal masses, calcifications or obstructive uropathy.
--- NOTE | 2021-10-23 16:23 | PC.NURSE ---
Dr. Gonsalez wants renal ultrasound and DATA ARCHITECT consult as well. Both entered on his behalf.
[2021-10-24] VITALS (16 sets, daily range): BP systolic 114–136; BP diastolic 51–86; PULSE 64–96; RESP 16–24; TEMP 36.8–37.7; O2SAT 90–96; BMI 21.8
--- NOTE | 2021-10-24 04:36 | PC.NURSE ---
pt rested most of the night, pt is alert and oriented, telemetry reveals NSR with pac's, VSS, pt noted with hematurina and small and medium size clots with urination, pt denies pain, picc line patent to LUIS, pt with lung sounds expiratory and inspiratory rhonchi noted, 02 sats 96% on 3L pnc
--- NOTE | 2021-10-24 06:00 | XR_ITS ---
PROCEDURE INFORMATION: Exam: XR Chest Exam date and time: 10/24/2021 6:10 AM Age: 76 years old Clinical indication: Shortness of breath; Additional info: Chest tube removed pneumothorax TECHNIQUE: Imaging protocol: Radiologic exam of the chest. Views: 1 view. COMPARISON: CR XR CHEST PORTABLE PICC PLAC 10/23/2021 3:35 PM FINDINGS: Tubes, catheters and devices: Left PICC line again demonstrated. Lungs: COPD, interstitial disease, and chronic granulomatous disease. Worsening right basilar airspace disease and pleural effusion, which collectively obscured the inferior right heart border and right hemidiaphragm. Pleural spaces: Small residual right apical pneumothorax. Heart/Mediastinum: No cardiomegaly. Bones/joints: Osteopenia and degenerative change. IMPRESSION: Worsening right basilar airspace disease and pleural effusion, which collectively obscured the inferior right heart border and right hemidiaphragm.
[2021-10-24 07:25] LABS: Basophils # 0.1 K/mm3 (0-0.2); Basophils % 0.2 % (0.1-2.0); Eosinophils # 0.3 K/mm3 (0.0-0.4); Eosinophils % 1.3 % (0.1-12.0); Hematocrit 31.1 % (37.0-47.0); Hemoglobin 10.2 g/dL (12.2-16.2); Lymphocytes # 1.1 K/mm3 (0.7-4.5); Lymphocytes % 4.7 % (10-50); Mean Corpuscular HGB Conc 32.7 g/dL (31.8-35.4); Mean Corpuscular Hemoglobin 30.1 pg (27.0-31.2); Mean Corpuscular Volume 91.8 fl (81-99); Mean Platelet Volume 8.7 fl (7.4-10.4); Monocytes # 1.5 K/mm3 (0.1-1.0); Monocytes % 6.1 % (1.7-9.3); Neutrophils # 21.2 K/mm3 (1.8-7.8); Neutrophils % 87.7 % (37.0-80.0); Platelet Count 333 K/mm3 (142-424); Red Blood Count 3.39 M/mm3 (4.20-5.40); Red Cell Distribution Width 13.7 % (11.5-17.5); White Blood Count 24.1 K/mm3 (4.8-10.8)
[2021-10-24 07:26] LABS: MANUAL DIFFERENTIAL MANUAL DIFFERENTIAL (MANUAL DIFF)
[2021-10-24 07:30] LABS: Anion Gap 10.5 mEq/L (5-15); Blood Urea Nitrogen 14 mg/dl (7-17); Calcium 7.5 mg/dl (8.4-10.2); Carbon Dioxide 31 mmol/L (22.0-30.0); Chloride 92 mmol/L (98-107); Creatinine Clearance Estimated 41 mL/min (50-200); Estimated Glomerular Filt Rate 120 ml/min (>60); GFR (African American) 145 ML/MIN (>60); Glucose 79 mg/dl (74-100); Potassium 3.5 mmoL/L (3.5-5.1); Sodium 130 mmol/L (136-145)
[2021-10-24 08:08] LABS: Lymphocytes % 10 % (10-50); Monocytes % 4 % (2-9); Neutrophils % 86 % (42-76); Platelet Estimate Normal; RBC Morphology Normal; Total Cells Counted 100
--- NOTE | 2021-10-24 10:33 | P.PN_ITS ---
Subjective *Date: 10/25/21 *Time: 01:36 Interval history: looks good but has weakness and sputum positive for pseudomonas Medical Exam Vital signs and Labs for Last 24 Hours: Temp Pulse Resp BP Pulse Ox FiO2 98.9 F 86 16 136/66 94 L 30 10/24/21 08:00 10/24/21 09:58 10/24/21 04:00 10/24/21 08:17 10/24/21 09:58 10/20/21 11:14 Laboratory Results - last 24 hr 10/24/21 06:27: WBC 24.1 H*, RBC 3.39 L, Hgb 10.2 L, Hct 31.1 L, MCV 91.8, MCH 30.1, MCHC 32.7, RDW 13.7, Plt Count 333, MPV 8.7, Neut % (Auto) 87.7 H, Lymph % (Auto) 4.7 L, [place] % (Auto) 6.1, Eos % (Auto) 1.3, Baso % (Auto) 0.2, Neut # (Auto) 21.2 H, Lymph # (Auto) 1.1, [place] # (Auto) 1.5 H, Eos # (Auto) 0.3, Baso # (Auto) 0.1, Total Counted 100, Neutrophils % (Manual) 86 H, Lymphocytes % (Manual) 10, Monocytes % (Manual) 4, Platelet Estimate Normal, RBC Morphology Normal 10/24/21 06:27: Sodium 130 L, Potassium 3.5, Chloride 92 L, Carbon Dioxide 31 H, Anion Gap 10.5, BUN 14, Creatinine 0.50 L, Estimated Creat Clear 41, Estimated GFR 120, Est GFR ( Amer) 145, Glucose 79, Calcium 7.5 L I & O for Labs for Last 24 Hours: Intake & Output 10/21/21 10/22/21 10/23/21 10/24/21 11:59 11:59 11:59 11:59 Intake Total 320 / 320 1060 / 1060 1370 / 1370 1180 / 1180 Output Total 1705 / 1705 785 / 785 2045 / 2045 860 / 860 Balance -1385 / -1385 275 / 275 -675 / -675 320 / 320 Weight 118 lb 3.213 oz 120 lb 1 oz 118 lb 8 oz 118 lb 12.8 oz Microbiology Reports for the Last 24 Hours: Microbiology 10/19/21 19:15 Sputum - Endotracheal Tube Aspirate Gram Stain - Final 10/19/21 19:15 Sputum - Endotracheal Tube Aspirate Sputum Culture - Preliminary Pseudomonas aeruginosa Head: Present normocephalic Eyes: Present as per HPI ENT: Present mucous membranes moist Neck: Present trachea midline Respiratory: Present decreased breath sounds and rhonchi Cardiac: Present Reg Rate and Rhythm GI: Present soft Extremities: Present full ROM; Absent tenderness Skin: Present intact Neuro: Present Cranial Nerve 2-12 Intact Assessment and Plan *Assessment and plan (1) Pseudomonas aeruginosa infection: Status: Acute Category: Medical Code(s): A49.8 - Other bacterial infections of unspecified site
--- NOTE | 2021-10-24 10:56 | PC.NURSE ---
called daughter (Lillian) and told her we had moved her mother to room 206. she said she would call her brother and notify a nephew of move. nephew coming for visit
--- NOTE | 2021-10-24 11:48 | EXP.PHA.CONS ---
Pharmacy Consult Date: 10/24/21 Time: 11:48 Referring provider: DR. FAIR Reason for Consult:: TOBRAMYCIN DOSING Allergies Allergy/AdvReac Type Severity Reaction Status Date / Time egg Allergy Severe Swelling Verified 10/19/21 09:48 of Lip/Tongue/Throat levofloxacin [From Levaquin] Allergy Severe Swelling Verified 10/19/21 09:48 of Lip/Tongue/Throat clarithromycin [From Biaxin] Allergy Mild Hives Verified 10/19/21 09:48 phenytoin [From Dilantin] Allergy Mild Hives Verified 10/19/21 09:48 alendronate sodium Allergy rash, hives Verified 10/19/21 09:48 [From Fosamax] oxycodone AdvReac vomiting Verified 10/19/21 09:48 Home Medications Medication Instructions Recorded Confirmed Type denosumab 60 mg/mL subcutaneous 60 mg SQ [id number] osteoporosis #1 08/13/21 10/19/21 Rx syringe (Prolia) mL albuterol sulfate 1.25 mg/3 mL 1.25 mg inhalation Q6 COPD 10/16/21 10/19/21 History solution for nebulization amlodipine 10 mg-benazepril 40 mg 1 cap PO DAILY Hypertension 10/16/21 10/19/21 History capsule cholecalciferol (vitamin D3) 125 125 mcg PO DAILY Supplement 10/16/21 10/19/21 History mcg (5,000 unit) capsule meloxicam 15 mg tablet 15 mg PO DAILY Pain 10/16/21 10/19/21 History montelukast 10 mg tablet 10 mg PO DAILY Allergy symptoms 10/16/21 10/19/21 History fluticasone propionate 230 1 puff inhalation BID COPD 10/19/21 10/19/21 History mcg-salmeterol 21 mcg/actuation HFA inhaler (Advair HFA) tiotropium bromide 18 mcg capsule 1 cap inhalation DAILY COPD 10/19/21 10/20/21 History with inhalation device (Spiriva with HandiHaler) aspirin 81 mg tablet,delayed 81 mg PO DAILY HEART HEALTH 10/20/21 10/20/21 History release New Prescriptions to Start Prescriptions: Height: 1.57 m Weight: 53.887 kg Laboratory Results:: Laboratory Results - last 24 hr 10/24/21 06:27: WBC 24.1 H*, RBC 3.39 L, Hgb 10.2 L, Hct 31.1 L, MCV 91.8, MCH 30.1, MCHC 32.7, RDW 13.7, Plt Count 333, MPV 8.7, Neut % (Auto) 87.7 H, Lymph % (Auto) 4.7 L, Craig % (Auto) 6.1, Eos % (Auto) 1.3, Baso % (Auto) 0.2, Neut # (Auto) 21.2 H, Lymph # (Auto) 1.1, Craig # (Auto) 1.5 H, Eos # (Auto) 0.3, Baso # (Auto) 0.1, Total Counted 100, Neutrophils % (Manual) 86 H, Lymphocytes % (Manual) 10, Monocytes % (Manual) 4, Platelet Estimate Normal, RBC Morphology Normal 10/24/21 06:27: Sodium 130 L, Potassium 3.5, Chloride 92 L, Carbon Dioxide 31 H, Anion Gap 10.5, BUN 14, Creatinine 0.50 L, Estimated Creat Clear 41, Estimated GFR 120, Est GFR ( Amer) 145, Glucose 79, Calcium 7.5 L Medical History: Medical History (Updated 10/23/21 @ 11:00 by Juliette Paris APRN) Acute respiratory failure with hypoxia Asthma Atrial fibrillation Atypical pneumonia Bronchiectasis with (acute) exacerbation Bronchiolitis Bronchitis Chest tube in place Chronic respiratory failure with hypoxia COPD (chronic obstructive pulmonary disease) case management patient Exertional dyspnea Hypertension ILD (interstitial lung disease) Lung mass Moderate persistent asthma On mechanically assisted ventilation Pneumonia Pneumothorax 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 Assessment and Plan Assessment and plan all Dx Assessment and Plan for all problems:: Age: 76 yo Serum creatinine: 1 mg/dL Height: 61.8 Inches Weight (kg): 54 Assessment: IBW (kg): 49.64 Dosing wt(kg): 49.6 Estimated Creatinine clearance (ml/min): 37.5 CRCL method: Cockcroft and Gault using ibw(default). Drug selected: Tobramycin Loading dose (mg): 0 Vd (liters): 14.9 (factor used: 0.3 L/kg) Luis (hr-1): 0.151 Half life (hrs): 4.59 Recommended dose: 240 mg Interval: 24 hrs Infusion time (hrs): 1 Predicted peak (mcg/mL): 15.4 Predicted trough (mcg/mL): 0.48 Recommendations: Give Tobramycin 240 mg q 24 hrs with an expected Cpeak of 15.4 mcg/ml an
--- NOTE | 2021-10-24 12:35 | PC.NURSE ---
Notified nurse of high temperature.
--- NOTE | 2021-10-24 14:02 | PC.NURSE ---
Pt had 1 unmeasured void with 1 assist to bsc
--- NOTE | 2021-10-24 16:33 | PC.NURSE ---
Pt had 1 unmeasured void
[2021-10-24 19:22] LABS: Tobramycin,Random 5.5 ug/ml
[2021-10-25] VITALS (14 sets, daily range): BP systolic 104–156; BP diastolic 45–86; PULSE 69–84; RESP 16–22; TEMP 36.7–37.4; O2SAT 91–96; BMI 21.7
[2021-10-25 02:27] LABS: Tobramycin,Random 1.6 ug/ml
--- NOTE | 2021-10-25 03:54 | PC.NURSE ---
No changes since previous assessment. Pt remains on 3 L NC w/ O2 sats >90% at rest. Pt has coughed intermittently this shift - medicated per APR. Pt states she is not coughing anything up yet. Lungs sounds - diminished w/ rhonchi. Pt has rested in intervals. PICC line drsg c/d/i. PICC flushes easily and has good blood return. Dressing to right chest is intact. NSR on tele. No needs voiced at this time. Call light in reach.
--- NOTE | 2021-10-25 06:00 | XR_ITS ---
PROCEDURE INFORMATION: Exam: XR Chest Exam date and time: 10/25/2021 5:40 AM Age: 76 years old Clinical indication: Other: Recent tension pneumothorax; Additional info: Chest tube has been removed follow up imaging for progress TECHNIQUE: Imaging protocol: Radiologic exam of the chest. Views: 1 view. COMPARISON: CR XR CHEST PORTABLE 10/24/2021 6:10 AM FINDINGS: Tubes, catheters and devices: There has been interval removal of right-sided chest tube. Left-sided PICC line is seen, unchanged. Lungs: Right basilar opacities related to consolidation and/or effusion similar to the prior exam. Chronic interstitial changes again seen. Pleural spaces: Minimal right apical pneumothorax, not significantly changed. Heart/Mediastinum: Cardiomediastinal silhouette is stable. Bones/joints: No acute findings. Soft tissues: Soft tissue emphysema in the right chest wall again seen. IMPRESSION: Interval removal of right-sided chest tube without significant change in the appearance of the chest.
[2021-10-25 06:20] LABS: Anion Gap 7.4 mEq/L (5-15); Blood Urea Nitrogen 13 mg/dl (7-17); Calcium 7.5 mg/dl (8.4-10.2); Carbon Dioxide 37 mmol/L (22.0-30.0); Chloride 93 mmol/L (98-107); Creatinine Clearance Estimated 41 mL/min (50-200); Estimated Glomerular Filt Rate 120 ml/min (>60); GFR (African American) 145 ML/MIN (>60); Glucose 103 mg/dl (74-100); Potassium 3.4 mmoL/L (3.5-5.1); Sodium 134 mmol/L (136-145)
[2021-10-25 06:23] LABS: Basophils # 0.1 K/mm3 (0-0.2); Basophils % 0.2 % (0.1-2.0); Eosinophils # 0.3 K/mm3 (0.0-0.4); Eosinophils % 1.3 % (0.1-12.0); Hematocrit 30.3 % (37.0-47.0); Hemoglobin 9.8 g/dL (12.2-16.2); Lymphocytes % 5.5 % (10-50); Mean Corpuscular HGB Conc 32.4 g/dL (31.8-35.4); Mean Corpuscular Hemoglobin 29.7 pg (27.0-31.2); Mean Corpuscular Volume 91.8 fl (81-99); Mean Platelet Volume 8.2 fl (7.4-10.4); Monocytes # 1.2 K/mm3 (0.1-1.0); Monocytes % 6.1 % (1.7-9.3); Neutrophils # 16.4 K/mm3 (1.8-7.8); Neutrophils % 86.9 % (37.0-80.0); Platelet Count 351 K/mm3 (142-424); Red Cell Distribution Width 13.6 % (11.5-17.5); White Blood Count 18.9 K/mm3 (4.8-10.8)
[2021-10-25 06:25] LABS: MANUAL DIFFERENTIAL MANUAL DIFFERENTIAL (MANUAL DIFF)
[2021-10-25 06:56] LABS: Lymphocytes % 9 % (10-50); Monocytes % 1 % (2-9); Neutrophils % 82 % (42-76); Platelet Estimate Normal; RBC Morphology Normal; Rouleaux 2+; Total Cells Counted 100
--- NOTE | 2021-10-25 10:01 | EXP.PHA.CONS ---
Pharmacy Consult Date: 10/25/21 Time: 10:01 Referring provider: DR. FAIR Reason for Consult:: TOBRAMYCIN LEVELS Allergies Allergy/AdvReac Type Severity Reaction Status Date / Time egg Allergy Severe Swelling Verified 10/19/21 09:48 of Lip/Tongue/Throat levofloxacin [From Levaquin] Allergy Severe Swelling Verified 10/19/21 09:48 of Lip/Tongue/Throat clarithromycin [From Biaxin] Allergy Mild Hives Verified 10/19/21 09:48 phenytoin [From Dilantin] Allergy Mild Hives Verified 10/19/21 09:48 alendronate sodium Allergy rash, hives Verified 10/19/21 09:48 [From Fosamax] oxycodone AdvReac vomiting Verified 10/19/21 09:48 Home Medications Medication Instructions Recorded Confirmed Type denosumab 60 mg/mL subcutaneous 60 mg SQ [id number] osteoporosis #1 08/13/21 10/19/21 Rx syringe (Prolia) mL albuterol sulfate 1.25 mg/3 mL 1.25 mg inhalation Q6 COPD 10/16/21 10/19/21 History solution for nebulization amlodipine 10 mg-benazepril 40 mg 1 cap PO DAILY Hypertension 10/16/21 10/19/21 History capsule cholecalciferol (vitamin D3) 125 125 mcg PO DAILY Supplement 10/16/21 10/19/21 History mcg (5,000 unit) capsule meloxicam 15 mg tablet 15 mg PO DAILY Pain 10/16/21 10/19/21 History montelukast 10 mg tablet 10 mg PO DAILY Allergy symptoms 10/16/21 10/19/21 History fluticasone propionate 230 1 puff inhalation BID COPD 10/19/21 10/19/21 History mcg-salmeterol 21 mcg/actuation HFA inhaler (Advair HFA) tiotropium bromide 18 mcg capsule 1 cap inhalation DAILY COPD 10/19/21 10/20/21 History with inhalation device (Spiriva with HandiHaler) aspirin 81 mg tablet,delayed 81 mg PO DAILY HEART HEALTH 10/20/21 10/20/21 History release New Prescriptions to Start Prescriptions: Height: 1.57 m Weight: 53.705 kg Laboratory Results:: Laboratory Results - last 24 hr 10/24/21 18:20: Random Tobramycin 5.5 10/25/21 02:09: Random Tobramycin 1.6 10/25/21 05:45: WBC 18.9 H, RBC 3.30 L, Hgb 9.8 L, Hct 30.3 L, MCV 91.8, MCH 29.7, MCHC 32.4, RDW 13.6, Plt Count 351, MPV 8.2, Neut % (Auto) 86.9 H, Lymph % (Auto) 5.5 L, [place] % (Auto) 6.1, Eos % (Auto) 1.3, Baso % (Auto) 0.2, Neut # (Auto) 16.4 H, Lymph # (Auto) 1.0, [place] # (Auto) 1.2 H, Eos # (Auto) 0.3, Baso # (Auto) 0.1, Total Counted 100, Neutrophils % (Manual) 82 H, Band Neutrophils % 8.0, Lymphocytes % (Manual) 9 L, Monocytes % (Manual) 1 L, Platelet Estimate Normal, RBC Morphology Normal, Rouleaux 2+ 10/25/21 05:45: Sodium 134 L, Potassium 3.4 L, Chloride 93 L, Carbon Dioxide 37 H, Anion Gap 7.4, BUN 13, Creatinine 0.50 L, Estimated Creat Clear 41, Estimated GFR 120, Est GFR ( Amer) 145, Glucose 103 H D, Calcium 7.5 L Medical History: Medical History (Updated 10/25/21 @ 01:38 by Jake Jimenez MD) Acute respiratory failure with hypoxia Asthma Atrial fibrillation Atypical pneumonia Bronchiectasis with (acute) exacerbation Bronchiolitis Bronchitis Chest tube in place Chronic respiratory failure with hypoxia COPD (chronic obstructive pulmonary disease) case management patient Exertional dyspnea Hypertension ILD (interstitial lung disease) Lung mass Moderate persistent asthma On mechanically assisted ventilation Pneumonia Pneumothorax 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 Assessment and Plan Assessment and plan all Dx Assessment and Plan for all problems:: PATIENT'S TOBRAMYCIN LEVELS OVERNIGHT WERE 5.5 MCG/ML AND 1.6 MCG/ML FOR 4 HR AND 12 HR, RESPECTIVELY. RECOMMEND INCREASING DOSE TO 320 MG Q24H TODAY. WILL HAVE TROUGH LEVEL DRAWN TOMORROW.
--- NOTE | 2021-10-25 10:26 | P.PN_ITS ---
Subjective *Date: 10/26/21 *Time: 05:56 Interval history: doing ok with still feels weak and at times sob Medical Exam Vital signs and Labs for Last 24 Hours: Temp Pulse Resp BP Pulse Ox FiO2 98.0 F 74 18 124/49 L 95 30 10/25/21 08:00 10/25/21 10:13 10/25/21 08:00 10/25/21 08:00 10/25/21 10:13 10/20/21 11:14 Laboratory Results - last 24 hr 10/24/21 18:20: Random Tobramycin 5.5 10/25/21 02:09: Random Tobramycin 1.6 10/25/21 05:45: WBC 18.9 H, RBC 3.30 L, Hgb 9.8 L, Hct 30.3 L, MCV 91.8, MCH 29.7, MCHC 32.4, RDW 13.6, Plt Count 351, MPV 8.2, Neut % (Auto) 86.9 H, Lymph % (Auto) 5.5 L, [place] % (Auto) 6.1, Eos % (Auto) 1.3, Baso % (Auto) 0.2, Neut # (Auto) 16.4 H, Lymph # (Auto) 1.0, [place] # (Auto) 1.2 H, Eos # (Auto) 0.3, Baso # (Auto) 0.1, Total Counted 100, Neutrophils % (Manual) 82 H, Band Neutrophils % 8.0, Lymphocytes % (Manual) 9 L, Monocytes % (Manual) 1 L, Platelet Estimate Normal, RBC Morphology Normal, Rouleaux 2+ 10/25/21 05:45: Sodium 134 L, Potassium 3.4 L, Chloride 93 L, Carbon Dioxide 37 H, Anion Gap 7.4, BUN 13, Creatinine 0.50 L, Estimated Creat Clear 41, Estimated GFR 120, Est GFR ( Amer) 145, Glucose 103 H D, Calcium 7.5 L I & O for Labs for Last 24 Hours: Intake & Output 10/22/21 10/23/21 10/24/21 10/25/21 11:59 11:59 11:59 11:59 Intake Total 1060 / 1060 1370 / 1370 1180 / 1180 580 / 580 Output Total 785 / 785 2045 / 2045 860 / 860 900 / 900 Balance 275 / 275 -675 / -675 320 / 320 -320 / -320 Weight 120 lb 1 oz 118 lb 8 oz 118 lb 12.8 oz 118 lb 6.4 oz Microbiology Reports for the Last 24 Hours: Microbiology 10/19/21 19:15 Sputum - Endotracheal Tube Aspirate Gram Stain - Final 10/19/21 19:15 Sputum - Endotracheal Tube Aspirate Sputum Culture - Prelimi nary Pseudomonas aeruginosa 10/19/21 20:30 Blood - Abdominal Blood Culture - Final NO GROWTH AFTER 5 DAYS 10/19/21 20:30 Blood - Abdominal Blood Culture - Final NO GROWTH AFTER 5 DAYS Head: Present atraumatic Eyes: Present as per HPI ENT: Present mucous membranes moist Neck: Present trachea midline Respiratory: Present decreased breath sounds Cardiac: Present Reg Rate and Rhythm GI: Present soft Extremities: Absent joint swelling Skin: Present intact Neuro: Present Cranial Nerve 2-12 Intact
--- NOTE | 2021-10-25 10:59 | PC.NURSE ---
pt is up to chair in room. She tolerated transfer well. assistx1 urine is much clearer today. it is a dark yellow but there are no clots and it is clear
--- NOTE | 2021-10-25 18:55 | PC.NURSE ---
pt has been up to the chair on and off through out the shift. she has maintained her oxygen saturation on 2lnc. her urine is clear and yellow. no clots. She is weak but tolerated transfer to [facility] with one assist. i have given her cough syrup due to increased cough but has not been able expectorate any sputum @ this time.
[2021-10-26] VITALS (13 sets, daily range): BP systolic 118–144; BP diastolic 44–72; PULSE 70–90; RESP 19–24; TEMP 36.4–36.9; O2SAT 91–98; BMI 21.5
--- NOTE | 2021-10-26 03:28 | PC.NURSE ---
No changes since previous assessment. Pt is on 2 L NC, with O2 sat >/=90% at rest. Lungs sounds - diminished, w/ rhonchi. Medicated per APR for cough. Pt receiving scheduled breathing tx. Pt has been NSR on tele thus far during my shift. Giving IV atbx per APR. PICC line patent - dressing c/d/i. Pt voiding per BSC w/ assist. Urine clear, yellow. Pt has rested in intervals. Call light in reach. No needs voiced at this time.
--- NOTE | 2021-10-26 06:00 | XR_ITS ---
PROCEDURE INFORMATION: Exam: XR Chest Exam date and time: 10/26/2021 5:37 AM Age: 76 years old Clinical indication: Other: Post pneumothorax, chest tube has been removed; Additional info: Chest tube has been removed, post pneumothorax, follow up TECHNIQUE: Imaging protocol: Radiologic exam of the chest. Views: 1 view. COMPARISON: CR XR CHEST PORTABLE 10/25/2021 5:40 AM FINDINGS: Lungs: Persistent interstitial changes bilaterally . Peripheral opacity in the right lung base related to consolidation/atelectasis and or effusion, roughly similar to the prior exam. Pleural spaces: Trace right apical pneumothorax. Pleural thickening in the left lung apex. Heart/Mediastinum: No acute findings or cardiomegaly. Bones/joints: No acute findings. IMPRESSION: No significant interval change with trace pneumothorax, chronic interstitial changes and consolidation/effusion in the right lung base.
[2021-10-26 06:25] LABS: Basophils % 0.2 % (0.1-2.0); Eosinophils # 0.3 K/mm3 (0.0-0.4); Eosinophils % 1.6 % (0.1-12.0); Hemoglobin 9.8 g/dL (12.2-16.2); Lymphocytes % 5.7 % (10-50); Mean Corpuscular HGB Conc 33.2 g/dL (31.8-35.4); Mean Corpuscular Hemoglobin 30.2 pg (27.0-31.2); Mean Corpuscular Volume 90.9 fl (81-99); Mean Platelet Volume 8.1 fl (7.4-10.4); Monocytes # 1.3 K/mm3 (0.1-1.0); Monocytes % 7.5 % (1.7-9.3); Neutrophils # 14.9 K/mm3 (1.8-7.8); Platelet Count 360 K/mm3 (142-424); Red Blood Count 3.24 M/mm3 (4.20-5.40); Red Cell Distribution Width 13.5 % (11.5-17.5); White Blood Count 17.5 K/mm3 (4.8-10.8)
[2021-10-26 06:26] LABS: Hematocrit 29.4 % (37.0-47.0)
[2021-10-26 06:27] LABS: MANUAL DIFFERENTIAL MANUAL DIFFERENTIAL (MANUAL DIFF)
[2021-10-26 06:30] LABS: Anion Gap 8.3 mEq/L (5-15); Blood Urea Nitrogen 13 mg/dl (7-17); Calcium 7.5 mg/dl (8.4-10.2); Carbon Dioxide 37 mmol/L (22.0-30.0); Chloride 93 mmol/L (98-107); Creatinine Clearance Estimated 40 mL/min (50-200); Estimated Glomerular Filt Rate 120 ml/min (>60); GFR (African American) 145 ML/MIN (>60); Glucose 104 mg/dl (74-100); Potassium 3.3 mmoL/L (3.5-5.1); Sodium 135 mmol/L (136-145)
[2021-10-26 06:35] LABS: Eosinophils % 1 % (0-3); Lymphocytes % 14 % (10-50); Monocytes % 1 % (2-9); Neutrophils % 78 % (42-76); Platelet Estimate Normal; RBC Morphology Normal; Total Cells Counted 100
--- NOTE | 2021-10-26 10:13 | US_ITS ---
FINAL REPORT CLINICAL HISTORY: RIGHT Pleural effusion-- scanned with rosalio mckinley FINDINGS: Ultrasound chest Clinical history: Pleural effusion. Findings: The patient was brought to the ultrasound suite for performance of a right-sided thoracentesis. However, ultrasound imaging demonstrates multi-septations with insufficient amount of fluid to allow for safe performance of a thoracentesis. The examination was discontinued. IMPRESSION: Ultrasound imaging demonstrating a multiseptated effusion with insufficient amount of fluid to allow for safe performance of a thoracentesis. Films reviewed , interpreted and dictated by Dr. Baig. Transcribed by Rosalio Pulido PA-C. Reviewed, Interpreted and Dictated by Jevon Baig MD Transcribed by MATTHEW Loredo Authenticated and [facility]
--- NOTE | 2021-10-26 10:14 | EXP.PULM.PN ---
Subjective *Date: 10/26/21 *Time: 10:14 Interval history: No acute respiratory events overnight. Stable oxygen requirements. Continued to have cough and productive phlegm. Pulmonology Exam Inpatient Vital signs and Labs for Last 24 Hours: Temp Pulse Resp BP Pulse Ox FiO2 98.1 F 77 24 119/54 L 91 L 28 10/26/21 08:00 10/26/21 08:00 10/26/21 08:00 10/26/21 08:00 10/26/21 08:00 10/25/21 20:43 Laboratory Results - last 24 hr 10/26/21 05:50: Sodium 135 L, Potassium 3.3 L, Chloride 93 L, Carbon Dioxide 37 H, Anion Gap 8.3, BUN 13, Creatinine 0.50 L, Estimated Creat Clear 40, Estimated GFR 120, Est GFR ( Amer) 145, Glucose 104 H, Calcium 7.5 L 10/26/21 05:55: WBC 17.5 H, RBC 3.24 L, Hgb 9.8 L, Hct 29.4 L, MCV 90.9, MCH 30.2, MCHC 33.2, RDW 13.5, Plt Count 360, MPV 8.1, Neut % (Auto) 85.0 H, Lymph % (Auto) 5.7 L, [place] % (Auto) 7.5, Eos % (Auto) 1.6, Baso % (Auto) 0.2, Neut # (Auto) 14.9 H, Lymph # (Auto) 1.0, [place] # (Auto) 1.3 H, Eos # (Auto) 0.3, Baso # (Auto) 0.0, Total Counted 100, Neutrophils % (Manual) 78 H, Band Neutrophils % 6.0, Lymphocytes % (Manual) 14, Monocytes % (Manual) 1 L, Eosinophils % (Manual) 1, Platelet Estimate Normal, RBC Morphology Normal I & O for Labs for Last 24 Hours: Intake & Output 10/23/21 10/24/21 10/25/21 10/26/21 23:59 23:59 23:59 23:59 Intake Total 1650 / 1650 460 / 460 940 / 940 580 / 580 Output Total 1155 / 1155 500 / 500 1150 / 1450 900 / 900 Balance 495 / 495 -40 / -40 -210 / -510 -320 / -320 Weight 118 lb 8 oz 118 lb 12.8 oz 118 lb 6.4 oz 117 lb 3 oz Microbiology Reports for the Last 24 Hours: Microbiology 10/19/21 19:15 Sputum - Endotracheal Tube Aspirate Gram Stain - Final 10/19/21 19:15 Sputum - Endotracheal Tube Aspirate Sputum Culture - Preliminary Pseudomonas aeruginosa Head: Present normocephalic and atraumatic ENT: Present normal exam Neck: Present normal inspection Respiratory: Present respiratory distress, rhonchi, diminished air movement and able to speak in complete sentences; Absent accessory muscle use, patient mechanically ventilated, wheezes or crackles Cardiac: Present S1/S2, Tachycardia and radial pulses present GI: Present soft and distention; Absent tenderness or guarding Rectal (female): Present deferred (female): Present deferred Skin: Present intact; Absent cyanosis or jaundice Neuro: Present alert and oriented x 3; Absent awake Extremities: Present normal inspection; Absent clubbing or cyanosis Assessment and Plan *Assessment and plan (1) Pneumothorax: Status: Acute Category: Medical Code(s): J93.9 - Pneumothorax, unspecified (2) Acute respiratory failure with hypoxia: Status: Acute Category: Medical Code(s): J96.01 - Acute respiratory failure with hypoxia (3) Pneumonia: Status: Acute Qualifiers: Pneumonia type: due to Pseudomonas Laterality: right Category: Medical Code(s): J18.9 - Pneumonia, unspecified organism Plan #Pneumothorax: #Pseudomonas Pneumonia: #Right pleural effusion #Bronchiectasis: Ms. Garcia is 76-year-old female with significant smoking requires a diagnosis of asthma, follicular bronchiolitis following in pulmonary clinic for exertional dyspnea had a bronchoscopy transbronchial biopsy yesterday complicated by pneumothorax presented to the hospital later yesterday for worsening respiratory status found to be having with requiring emergent chest tube placement and mechanical ventilator support for her altered mentation possible hypercarbic respiratory failure and pulmonary was called for further management. Status post chest tube placement in the emergency room yesterday, chest x-ray after chest tube showed complete resolution of pneumothorax and chest tube removal. Interval update: Patient's clinically stable. Continue to have cough and productive phlegm. Patient sputum cultures continued Pseudomonas most recen
[2021-10-26 10:22] LABS: Alanine Aminotransferase 28 U/L (12-78); Albumin Level 2.8 g/dl (3.5-5.0); Alkaline Phosphatase 99 U/L (38-126); Anion Gap 9.4 mEq/L (5-15); Aspartate Amino Transferase 39 U/L (14-36); Bilirubin,Total 0.2 mg/dl (0.2-1.3); Blood Urea Nitrogen 13 mg/dl (7-17); Calcium 7.5 mg/dl (8.4-10.2); Carbon Dioxide 36 mmol/L (22.0-30.0); Chloride 92 mmol/L (98-107); Creatinine Clearance Estimated 40 mL/min (50-200); Estimated Glomerular Filt Rate 120 ml/min (>60); GFR (African American) 145 ML/MIN (>60); Globulin 2.9 g/dL (1.3-3.2); Glucose 108 mg/dl (74-100); Lactate Dehydrogenase 211 U/L (313-618); Potassium 3.4 mmoL/L (3.5-5.1); Sodium 134 mmol/L (136-145); Total Protein,Serum 5.7 g/dl (6.3-8.2)
--- NOTE | 2021-10-26 11:38 | EXP.CARD.PN ---
Subjective Subjective Date: 10/26/21 Time: 11:38 Principal diagnosis: acute hypoxic respiratory failure and afib Interval history: Patient resting in chair s/p thoracentesis this morning., denies complaints. Remains afib but rate well controlled. OAC held over weekend due to passing clots and blood in cath, see below imaging. No further bleeding. Dr. Smith with urology at bedside, he states he thinks bleeding was from trauma of mancuso cath. now that mancuso has been dc states can resume oac and see how patient does. Echo 10/23 Conclusion 1.? Biatrial enlargement, normal left ventricular size, mild concentric left ventricular hypertrophy, estimated ejection fraction 50% with no regional wall motion abnormality, diastolic parameters are inconclusive. 2.? Mildly enlarged right ventricle with normal contractility. 3.? Mild mitral and tricuspid regurgitation.? Calculated right ventricular systolic pressure 38 mmHg. 4.? No significant pericardial failure. 5.? Inferior vena cava is poorly visualized. Renal artery duplex 10/23 IMPRESSION: 1. Mildly decreased blood flow noted to both kidneys. 2. No evidence of renal masses, calcifications or obstructive uropathy. Bladder ultrasound 10/23 IMPRESSION: 1. Prevoid bladder volume is 256 mL and postvoid volume is 45 mL. 2. Mild bladder wall thickening. 3. Focal bladder masses noted inferiorly measuring up to 1 cm. Exam Data for Last 24 hours Vital signs and Labs for Last 24 Hours: Temp Pulse Resp BP Pulse Ox FiO2 98.1 F 77 24 119/54 L 91 L 28 10/26/21 08:00 10/26/21 08:00 10/26/21 08:00 10/26/21 08:00 10/26/21 08:00 10/25/21 20:43 Laboratory Results - last 24 hr 10/26/21 05:50: Sodium 135 L, Potassium 3.3 L, Chloride 93 L, Carbon Dioxide 37 H, Anion Gap 8.3, BUN 13, Creatinine 0.50 L, Estimated Creat Clear 40, Estimated GFR 120, Est GFR ( Amer) 145, Glucose 104 H, Calcium 7.5 L 10/26/21 05:55: WBC 17.5 H, RBC 3.24 L, Hgb 9.8 L, Hct 29.4 L, MCV 90.9, MCH 30.2, MCHC 33.2, RDW 13.5, Plt Count 360, MPV 8.1, Neut % (Auto) 85.0 H, Lymph % (Auto) 5.7 L, [place] % (Auto) 7.5, Eos % (Auto) 1.6, Baso % (Auto) 0.2, Neut # (Auto) 14.9 H, Lymph # (Auto) 1.0, [place] # (Auto) 1.3 H, Eos # (Auto) 0.3, Baso # (Auto) 0.0, Total Counted 100, Neutrophils % (Manual) 78 H, Band Neutrophils % 6.0, Lymphocytes % (Manual) 14, Monocytes % (Manual) 1 L, Eosinophils % (Manual) 1, Platelet Estimate Normal, RBC Morphology Normal 10/26/21 09:56: Sodium 134 L, Potassium 3.4 L, Chloride 92 L, Carbon Dioxide 36 H, Anion Gap 9.4, BUN 13, Creatinine 0.50 L, Estimated Creat Clear 40, Estimated GFR 120, Est GFR ( Amer) 145, Glucose 108 H, Calcium 7.5 L, Total Bilirubin 0.2, AST 39 H, ALT 28, Alkaline Phosphatase 99, Lactate Dehydrogenase 211 L, Total Protein 5.7 L, Albumin 2.8 L, Globulin 2.9, Albumin/Globulin Ratio 1.0 L I & O for Last 24 hours: Intake & Output 10/23/21 10/24/21 10/25/21 10/26/21 23:59 23:59 23:59 23:59 Intake Total 1650 / 1650 460 / 460 940 / 940 580 / 580 Output Total 1155 / 1155 500 / 500 1150 / 1450 900 / 900 Balance 495 / 495 -40 / -40 -210 / -510 -320 / -320 Weight 118 lb 8 oz 118 lb 12.8 oz 118 lb 6.4 oz 117 lb 3 oz Microbiology Reports for the Last 24 Hours: Microbiology 10/19/21 19:15 Sputum - Endotracheal Tube Aspirate Gram Stain - Final 10/19/21 19:15 Sputum - Endotracheal Tube Aspirate Sputum Culture - Preliminary Pseudomonas aeruginosa Constitutional Constitutional: no acute distress *Routine Respiratory Exam Respiratory: Present CTA bilaterally and symmetric chest movement *Routine Cardiovascular Exam Cardiovascular: Present Normal S1 and Normal S2 Comments: afib noted *Routine Abdominal Exam Abdominal: Present soft and normoactive bowel sounds; Absent tenderness *Routine Extremities Exam Extremities: Present full ROM and normal capillary refill; Absent edema *Routine Skin Exam Skin: Present intact, dry and warm Detailed Neck Ex
--- NOTE | 2021-10-26 11:48 | EXP.SURG.CON ---
History of Present Illness *Admission Date: 10/19/21 *History of present illness: 76-year-old white female referred for gross hematuria. Patient admitted 7 days ago for pulmonary issues. She was started on Lovenox and had a Vegas catheter began having gross hematuria on Tuesday afternoon. Lovenox was held and her Vegas cath removed and her urine has cleared and is currently archana-yellow. She denies any previous history of hematuria. A renal and bladder ultrasound were performed which showed no abnormalities. Renal function is normal. 46-year-old female patient presented to the [facility] emergency department via EMS after family called squad for patient's O2 saturations of 80%. Patient had a bronchoscopy yesterday and last evening developed shortness of breath and respiratory distress. Upon arrival squad noted oxygen saturation to be 70% and she was nonresponsive. They administered 2 duo nebs, steroids, and CPAP with no improvement. Emergency department she was found to not have right-sided breath sounds, bedside ultrasound demonstrated no lung movement and initial chest x-ray demonstrated tension and resolution of mediastinal shift and emergent chest tube was placed. Due to patient unable to protect airway, patient was intubated. Chest tube placement and ET tube placement visualized with chest x-ray as well as decompression of tension pneumothorax and resolution of mediastinal shift [facility] Medical History (Updated 10/26/21 @ 11:50 by Valdo Berry MD) Acute respiratory failure with hypoxia Asthma Atrial fibrillation Atypical pneumonia Bronchiectasis with (acute) exacerbation Bronchiolitis Bronchitis Chest tube in place Chronic respiratory failure with hypoxia COPD (chronic obstructive pulmonary disease) case management patient Exertional dyspnea Hypertension ILD (interstitial lung disease) Lung mass Moderate persistent asthma On mechanically assisted ventilation Pneumonia Pneumothorax 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 Surgical History (Updated 10/26/21 @ 08:35 by RT Fifi) History of bronchoscopy History of section Family History Other Family history of heart attack Social History (Updated 10/20/21 @ 02:52 by Yocasta Cool RN) Smoking Status: Unknown if ever smoked alcohol intake: never substance use type: denies use current occupational status: retired Travel in the last 8 weeks: None housing: house caffeine: Yes Review of Systems *Neurologic Neurologic: Reports system reviewed and no additional complaints, except as documented Meds Home Medications and Allergies Home Medications Medication Instructions Recorded Confirmed Type denosumab 60 mg/mL subcutaneous 60 mg SQ [id number] osteoporosis #1 08/13/21 10/19/21 Rx syringe (Prolia) mL albuterol sulfate 1.25 mg/3 mL 1.25 mg inhalation Q6 COPD 10/16/21 10/19/21 History solution for nebulization amlodipine 10 mg-benazepril 40 mg 1 cap PO DAILY Hypertension 10/16/21 10/19/21 History capsule cholecalciferol (vitamin D3) 125 125 mcg PO DAILY Supplement 10/16/21 10/19/21 History mcg (5,000 unit) capsule meloxicam 15 mg tablet 15 mg PO DAILY Pain 10/16/21 10/19/21 History montelukast 10 mg tablet 10 mg PO DAILY Allergy symptoms 10/16/21 10/19/21 History fluticasone propionate 230 1 puff inhalation BID COPD 10/19/21 10/19/21 History mcg-salmeterol 21 mcg/actuation HFA inhaler (Advair HFA) tiotropium bromide 18 mcg capsule 1 cap inhalation DAILY COPD 10/19/21 10/20/21 History with inhalation device (Spiriva with HandiHaler) aspirin 81 mg tablet,delayed 81 mg PO DAILY HEART HEALTH 10/20/21 10/20/21 History release New Prescriptions to Start Prescriptions: Allergies Allergy/AdvReac Type Severity Reaction Status Date / Time egg Allergy Severe Swelling Verified 10/19/21 09:48 of Lip/Tongue/Throat levoflo
--- NOTE | 2021-10-26 12:21 | EXP.GYNCONS ---
History of Present Illness *Admission Date: 10/19/21 *History of present illness: Consult for 76-year-old white female with gross hematuria. Patient admitted on 10/19/21 for pulmonary issues. She was started on Lovenox on 10/23/21 and had a Vegas catheter in place. She had gross hematuria on Tuesday afternoon. Lovenox was held and her Vegas catheter was removed. Hematuria resolved. No further bleeding. She denies any previous history of hematuria. Urology was also consulted. Patient believes she went through menopause at age 45. She has history of x 1966 and 1974 and tubal ligation with in 1974. She denies any history of post menopausal bleeding. Denies vaginal discharge, itching and burning. 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 Surgical History History of bronchoscopy History of section Family History Other Family history of heart attack Social History Smoking Status: Unknown if ever smoked alcohol intake: never substance use type: denies use current occupational status: retired Travel in the last 8 weeks: None housing: house caffeine: Yes Review of Systems Review of Systems Review of systems:: pertinent systems reviewed and negative unless documented below Meds Home Medications and Allergies Home Medications Medication Instructions Recorded Confirmed Type denosumab 60 mg/mL subcutaneous 60 mg SQ [id number] osteoporosis #1 08/13/21 10/19/21 Rx syringe (Prolia) mL albuterol sulfate 1.25 mg/3 mL 1.25 mg inhalation Q6 COPD 10/16/21 10/19/21 History solution for nebulization amlodipine 10 mg-benazepril 40 mg 1 cap PO DAILY Hypertension 10/16/21 10/19/21 History capsule cholecalciferol (vitamin D3) 125 125 mcg PO DAILY Supplement 10/16/21 10/19/21 History mcg (5,000 unit) capsule meloxicam 15 mg tablet 15 mg PO DAILY Pain 10/16/21 10/19/21 History montelukast 10 mg tablet 10 mg PO DAILY Allergy symptoms 10/16/21 10/19/21 History fluticasone propionate 230 1 puff inhalation BID COPD 10/19/21 10/19/21 History mcg-salmeterol 21 mcg/actuation HFA inhaler (Advair HFA) tiotropium bromide 18 mcg capsule 1 cap inhalation DAILY COPD 10/19/21 10/20/21 History with inhalation device (Spiriva with HandiHaler) aspirin 81 mg tablet,delayed 81 mg PO DAILY HEART HEALTH 10/20/21 10/20/21 History release New Prescriptions to Start Prescriptions: Allergies Allergy/AdvReac Type Severity Reaction Status Date / Time egg Allergy Severe Swelling Verified 10/19/21 09:48 of Lip/Tongue/Throat levofloxacin [From Levaquin] Allergy Severe Swelling Verified 10/19/21 09:48 of Lip/Tongue/Throat clarithromycin [From Biaxin] Allergy Mild Hives Verified 10/19/21 09:48 phenytoin [From Dilantin] Allergy Mild Hives Verified 10/19/21 09:48 alendronate sodium Allergy rash, hives Verified 10/19/21 09:48 [From Fosamax] oxycodone AdvReac vomiting Verified 10/19/21 09:48 Exam (Inpt) Vital signs and Labs for Last 24 Hours: Temp Pulse Resp BP Pulse Ox FiO2 98.1 F 78 24 119/54 L 91 L 28 10/26/21 08:00 10/26/21 09:50 10/26/21 08:00 10/26/21 08:00 10/26/21 08:00 10/25/21 20:43 Laboratory Results - last 24 hr 10/26/21 05:50: Sodium 135 L, Potassium
--- NOTE | 2021-10-26 12:34 | US_ITS ---
FINAL REPORT TECHNIQUE: Transvaginal ultrasound imaging of the pelvis was obtained. CLINICAL HISTORY: hemturia FINDINGS: The uterus measures 6.8 x 2.1 x 3.0 cm. Endometrium is within normal limits at 0.37 cm. The right ovary measures 1.2 cm in length. The left ovary measures 1.3 cm in length. A 1 cm nodule is seen in the posterior wall of the urinary bladder, mass not excluded. IMPRESSION: 1 cm nodule in the posterior wall the urinary bladder, mass not excluded. Recommend cystoscopy and urologic evaluation. Reviewed, Interpreted and Dictated by Jevon Baig MD Transcribed by Wendy Orozco Authenticated and [facility][1]
[2021-10-26 12:44] LABS: Tobramycin,Trough 0.8 ug/ml (0-2.0)
--- NOTE | 2021-10-26 12:56 | US_ITS ---
FINAL REPORT CLINICAL HISTORY: Pleural effusion Thoracentesis and chest tube placed bedside with Dr. Caballero -- 60ml removed FINDINGS: ULTRASOUND-GUIDED THORACENTESIS HISTORY: Pleural effusion. TECHNIQUE: . Ultrasound was provided for the clinical service at bedside for ultrasound guided thoracentesis and chest tube placement. IMPRESSION: ultrasound utilized by clinical service for thoracentesis. Films reviewed , interpreted and dictated by Dr. Baig. Transcribed by Jerrod Pulido PA-C. Reviewed, Interpreted and Dictated by Jevon Baig MD Transcribed by MATTHEW Loredo Authenticated and [facility]
--- NOTE | 2021-10-26 13:44 | EXP.PHA.CONS ---
Pharmacy Consult Date: 10/26/21 Time: 13:44 Referring provider: DR. FAIR Reason for Consult:: TOBRAMYCIN TROUGH LEVEL Allergies Allergy/AdvReac Type Severity Reaction Status Date / Time egg Allergy Severe Swelling Verified 10/19/21 09:48 of Lip/Tongue/Throat levofloxacin [From Levaquin] Allergy Severe Swelling Verified 10/19/21 09:48 of Lip/Tongue/Throat clarithromycin [From Biaxin] Allergy Mild Hives Verified 10/19/21 09:48 phenytoin [From Dilantin] Allergy Mild Hives Verified 10/19/21 09:48 alendronate sodium Allergy rash, hives Verified 10/19/21 09:48 [From Fosamax] oxycodone AdvReac vomiting Verified 10/19/21 09:48 Home Medications Medication Instructions Recorded Confirmed Type denosumab 60 mg/mL subcutaneous 60 mg SQ [id number] osteoporosis #1 08/13/21 10/19/21 Rx syringe (Prolia) mL albuterol sulfate 1.25 mg/3 mL 1.25 mg inhalation Q6 COPD 10/16/21 10/19/21 History solution for nebulization amlodipine 10 mg-benazepril 40 mg 1 cap PO DAILY Hypertension 10/16/21 10/19/21 History capsule cholecalciferol (vitamin D3) 125 125 mcg PO DAILY Supplement 10/16/21 10/19/21 History mcg (5,000 unit) capsule meloxicam 15 mg tablet 15 mg PO DAILY Pain 10/16/21 10/19/21 History montelukast 10 mg tablet 10 mg PO DAILY Allergy symptoms 10/16/21 10/19/21 History fluticasone propionate 230 1 puff inhalation BID COPD 10/19/21 10/19/21 History mcg-salmeterol 21 mcg/actuation HFA inhaler (Advair HFA) tiotropium bromide 18 mcg capsule 1 cap inhalation DAILY COPD 10/19/21 10/20/21 History with inhalation device (Spiriva with HandiHaler) aspirin 81 mg tablet,delayed 81 mg PO DAILY HEART HEALTH 10/20/21 10/20/21 History release New Prescriptions to Start Prescriptions: Height: 1.57 m Weight: 53.155 kg Laboratory Results:: Laboratory Results - last 24 hr 10/26/21 05:50: Sodium 135 L, Potassium 3.3 L, Chloride 93 L, Carbon Dioxide 37 H, Anion Gap 8.3, BUN 13, Creatinine 0.50 L, Estimated Creat Clear 40, Estimated GFR 120, Est GFR ( Amer) 145, Glucose 104 H, Calcium 7.5 L 10/26/21 05:55: WBC 17.5 H, RBC 3.24 L, Hgb 9.8 L, Hct 29.4 L, MCV 90.9, MCH 30.2, MCHC 33.2, RDW 13.5, Plt Count 360, MPV 8.1, Neut % (Auto) 85.0 H, Lymph % (Auto) 5.7 L, [place] % (Auto) 7.5, Eos % (Auto) 1.6, Baso % (Auto) 0.2, Neut # (Auto) 14.9 H, Lymph # (Auto) 1.0, [place] # (Auto) 1.3 H, Eos # (Auto) 0.3, Baso # (Auto) 0.0, Total Counted 100, Neutrophils % (Manual) 78 H, Band Neutrophils % 6.0, Lymphocytes % (Manual) 14, Monocytes % (Manual) 1 L, Eosinophils % (Manual) 1, Platelet Estimate Normal, RBC Morphology Normal 10/26/21 09:56: Sodium 134 L, Potassium 3.4 L, Chloride 92 L, Carbon Dioxide 36 H, Anion Gap 9.4, BUN 13, Creatinine 0.50 L, Estimated Creat Clear 40, Estimated GFR 120, Est GFR ( Amer) 145, Glucose 108 H, Calcium 7.5 L, Total Bilirubin 0.2, AST 39 H, ALT 28, Alkaline Phosphatase 99, Lactate Dehydrogenase 211 L, Total Protein 5.7 L, Albumin 2.8 L, Globulin 2.9, Albumin/Globulin Ratio 1.0 L 10/26/21 12:15: Tobramycin Trough 0.8 Medical History: Medical History (Updated 10/26/21 @ 11:50 by Valdo Berry MD) Acute respiratory failure with hypoxia Asthma Atrial fibrillation Atypical pneumonia Bronchiectasis with (acute) exacerbation Bronchiolitis Bronchitis Chest tube in place Chronic respiratory failure with hypoxia COPD (chronic obstructive pulmonary disease) case management patient Exertional dyspnea Hypertension ILD (interstitial lung disease) Lung mass Moderate persistent asthma On mechanically assisted ventilation Pneumonia Pneumothorax 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 PHARMACY WILL CONTINUE TO MONITOR. -ROCK ZAMBRANO, CESILIAD
--- NOTE | 2021-10-26 14:09 | PC.NURSE ---
1345-made radiology aware pt needed to void if they wanted to come get pt for bladder ultrasound they stated they did not have availability at this time.
--- NOTE | 2021-10-26 14:49 | EXP.ACUTE.PN ---
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 Medical Exam Vital signs and Labs for Last 24 Hours: Temp Pulse Resp BP Pulse Ox FiO2 97.6 F 82 22 130/72 94 L 28 10/26/21 12:00 10/26/21 14:38 10/26/21 12:00 10/26/21 12:00 10/26/21 12:00 10/25/21 20:43 Laboratory Results - last 24 hr 10/26/21 05:50: Sodium 135 L, Potassium 3.3 L, Chloride 93 L, Carbon Dioxide 37 H, Anion Gap 8.3, BUN 13, Creatinine 0.50 L, Estimated Creat Clear 40, Estimated GFR 120, Est GFR ( Amer) 145, Glucose 104 H, Calcium 7.5 L 10/26/21 05:55: WBC 17.5 H, RBC 3.24 L, Hgb 9.8 L, Hct 29.4 L, MCV 90.9, MCH 30.2, MCHC 33.2, RDW 13.5, Plt Count 360, MPV 8.1, Neut % (Auto) 85.0 H, Lymph % (Auto) 5.7 L, [place] % (Auto) 7.5, Eos % (Auto) 1.6, Baso % (Auto) 0.2, Neut # (Auto) 14.9 H, Lymph # (Auto) 1.0, [place] # (Auto) 1.3 H, Eos # (Auto) 0.3, Baso # (Auto) 0.0, Total Counted 100, Neutrophils % (Manual) 78 H, Band Neutrophils % 6.0, Lymphocytes % (Manual) 14, Monocytes % (Manual) 1 L, Eosinophils % (Manual) 1, Platelet Estimate Normal, RBC Morphology Normal 10/26/21 09:56: Sodium 134 L, Potassium 3.4 L, Chloride 92 L, Carbon Dioxide 36 H, Anion Gap 9.4, BUN 13, Creatinine 0.50 L, Estimated Creat Clear 40, Estimated GFR 120, Est GFR ( Amer) 145, Glucose 108 H, Calcium 7.5 L, Total Bilirubin 0.2, AST 39 H, ALT 28, Alkaline Phosphatase 99, Lactate Dehydrogenase 211 L, Total Protein 5.7 L, Albumin 2.8 L, Globulin 2.9, Albumin/Globulin Ratio 1.0 L 10/26/21 12:15: Tobramycin Trough 0.8 I & O for Labs for Last 24 Hours: Intake & Output 10/24/21 10/25/21 10/26/21 10/27/21 11:59 11:59 11:59 11:59 Intake Total 1180 / 1180 580 / 580 1180 / 1180 360 / 360 Output Total 860 / 860 1100 / 1100 1200 / 1400 200 / 200 Balance 320 / 320 -520 / -520 -20 / -220 160 / 160 Weight 118 lb 12.8 oz 118 lb 6.4 oz 117 lb 3 oz 117 lb 3 oz Head: Present atraumatic ENT: Present mucous membranes dry Neck: Present trachea midline Respiratory: Present decreased breath sounds Cardiac: Present Reg Rate and Rhythm and Systolic Murmur GI: Present soft Extremities: Absent tenderness Skin: Absent erythema Neuro: Absent No Lateralizing Findings
--- NOTE | 2021-10-26 15:35 | XR_ITS ---
FINAL REPORT CLINICAL HISTORY: S/p chesttube placement COMPARISON: 11 hours prior FINDINGS: The heart size is normal. The mediastinum is normal. A left-sided PICC line terminates in the SVC. There has been interval placement of a right-sided chest tube. A moderate right pleural effusion persists, unchanged. There is no pneumothorax. IMPRESSION: Right-sided chest tube in place with moderate right pleural effusion. No pneumothorax. Reviewed, Interpreted and Dictated by Jevon Baig MD Transcribed by Elver Radford Authenticated and [facility]
--- NOTE | 2021-10-26 16:30 | HMH.PROCNOTE ---
[facility] Procedure Note Date: 10/26/21 Time: 14:30 Procedure Note:: Procedure: Right chest tube placement Indication for procedure: Loculated Pleural effusion A time out was performed, and the chest x-ray was reviewed, the appropriate side was confirmed and marked. My hands were washed immediately prior to the procedure. I wore a surgical cap, mask with protective eyewear, sterile gown, and sterile gloves throughout the procedure. The patient was prepped and draped in a sterile manner using chlorhexidine scrub after the appropriate level was percussed and confirmed by ultrasound. 1% lidocaine was used to anesthetize the skin, ?subcutaneous tissue, superior aspect of the rib periosteum and parietal pleura.? A finder needle was then introduced at the seventh intercoastal space posteriorly?to locate the pleural fluid and blood-tinged fluid was aspirated. The syringe was removed and a guidewire was advanced into the introducer needle. The guidewire was visualized in the pleural space by ultrasound. A small incision was made at the skin surface with a scalpel and the introducer needle was exchanged for a dilator over the guidewire. After appropriate dilation was obtained, the dilator was exchanged over the wire for chest tube. The chest tube in a sterile fashion was connected to atrium and suction at -20 cm water 60 ml of bloody-colored?fluid was removed without difficulty. No immediate complications were noted during the procedure. A post-procedure chest X-ray is pending at the time of this note. The fluid will be sent for routine pleural studies, cultures along with cytopathology.? Patient tolerated the procedure well? Estimated blood loss is 5cc.
--- NOTE | 2021-10-26 16:42 | PC.NURSE ---
PT IS AOX4, ABLE TO MAKE NEEDS KNOWN TO STAFF. HAS TOLERATED SITTING UP TO CHAIR FOR MOST OF SHIFT. CHEST TUBE INSERTED BY DR FAIR AT BEDSIDE HOOKED TO MICHELLE AT [facility] LOW WAS SUCTION 20 MMHG. PT WAS TREATED FOR PAIN FOLLOWING INTERVENTION WITH [facility] EFFECTIVENESS. SHE IS CURRENTLY RESTING IN BED. CONTINUE ON 2LNC FOR O2 SUPPORT. SHE CONTINUES TO SHOW NSR ON TELE. DENIES CHEST PAIN OR PRESSURE.
[2021-10-26 22:04] LABS: Appearance,Body Fld. Bloody; Source, Body Fld. Thoracentesis Fluid
[2021-10-26 23:01] LABS: Volume,Body Fld. 16 mL
[2021-10-26 23:30] LABS: RBC,Body Fluid 51 cells/uL (< 10 X 10^3); TNC,Body Fluid 488 cells/uL (< 1000)
[2021-10-26 23:55] LABS: Mononuclear WBCs,Body Fluid 50 %; Polynuclear WBC,Body Fluid 50 %
[2021-10-27] VITALS (14 sets, daily range): BP systolic 93–130; BP diastolic 46–66; PULSE 72–90; RESP 16–20; TEMP 37–37.4; O2SAT 89–99; BMI 21.7
--- NOTE | 2021-10-27 04:00 | PC.NURSE ---
pt rested well after iv morphine for pain, chest tube patent to right chest wall to suction closed drainage system, dressing cdi, noted 1048 of output after cathflo and dornase given as ordered, pt tolerated well, bilateral rhonchi and wheezing noted, picc line patent to LUIS, 02 sats 90-95 on 2L pnc, no other issues noted at this time, VSS,
[2021-10-27 06:46] LABS: Basophils # 0.1 K/mm3 (0-0.2); Basophils % 0.2 % (0.1-2.0); Eosinophils # 0.1 K/mm3 (0.0-0.4); Eosinophils % 0.4 % (0.1-12.0); Hematocrit 31.1 % (37.0-47.0); Hemoglobin 9.9 g/dL (12.2-16.2); Lymphocytes # 1.1 K/mm3 (0.7-4.5); Lymphocytes % 4.9 % (10-50); Mean Corpuscular HGB Conc 31.8 g/dL (31.8-35.4); Mean Corpuscular Hemoglobin 29.6 pg (27.0-31.2); Mean Platelet Volume 8.3 fl (7.4-10.4); Monocytes # 1.6 K/mm3 (0.1-1.0); Neutrophils # 19.5 K/mm3 (1.8-7.8); Neutrophils % 87.6 % (37.0-80.0); Platelet Count 451 K/mm3 (142-424); Red Blood Count 3.35 M/mm3 (4.20-5.40); Red Cell Distribution Width 13.5 % (11.5-17.5); White Blood Count 22.3 K/mm3 (4.8-10.8)
[2021-10-27 06:49] LABS: MANUAL DIFFERENTIAL MANUAL DIFFERENTIAL (MANUAL DIFF)
[2021-10-27 06:55] LABS: Anion Gap 11.3 mEq/L (5-15); Blood Urea Nitrogen 14 mg/dl (7-17); Calcium 7.1 mg/dl (8.4-10.2); Carbon Dioxide 33 mmol/L (22.0-30.0); Chloride 88 mmol/L (98-107); Creatinine Clearance Estimated 40 mL/min (50-200); Estimated Glomerular Filt Rate 120 ml/min (>60); GFR (African American) 145 ML/MIN (>60); Glucose 78 mg/dl (74-100); Potassium 3.3 mmoL/L (3.5-5.1); Sodium 129 mmol/L (136-145)
[2021-10-27 08:22] LABS: Lymphocytes % 5 % (10-50); Monocytes % 8 % (2-9); Neutrophils % 87 % (42-76); Platelet Estimate Slight Increase; RBC Morphology Normal; Total Cells Counted 100
--- NOTE | 2021-10-27 09:33 | EXP.CARD.PN ---
Subjective Subjective Date: 10/27/21 Time: 08:00 Principal diagnosis: acute hypoxic respiratory failure and afib Interval history: Doing well, Xarelto started last night, patient and nurse denies further hematuria. Remains afib rate controlled. Exam Data for Last 24 hours Vital signs and Labs for Last 24 Hours: Temp Pulse Resp BP Pulse Ox FiO2 98.8 F 80 18 112/54 L 92 L 28 10/27/21 04:00 10/27/21 06:34 10/27/21 04:00 10/27/21 04:00 10/27/21 06:34 10/25/21 20:43 Laboratory Results - last 24 hr 10/26/21 09:56: Sodium 134 L, Potassium 3.4 L, Chloride 92 L, Carbon Dioxide 36 H, Anion Gap 9.4, BUN 13, Creatinine 0.50 L, Estimated Creat Clear 40, Estimated GFR 120, Est GFR ( Amer) 145, Glucose 108 H, Calcium 7.5 L, Total Bilirubin 0.2, AST 39 H, ALT 28, Alkaline Phosphatase 99, Lactate Dehydrogenase 211 L, Total Protein 5.7 L, Albumin 2.8 L, Globulin 2.9, Albumin/Globulin Ratio 1.0 L 10/26/21 12:15: Tobramycin Trough 0.8 10/26/21 15:20: Fluid Source Thoracentesis fluid, Fluid Volume 16, Fluid Appearance Bloody, Fluid RBC (Auto) 51, Fld Tot Nucleated Cell 488, Fld Polynuclear WBCs % 50, Fld Mononuclear WBCs % 50 10/27/21 06:23: WBC 22.3 H* D, RBC 3.35 L, Hgb 9.9 L, Hct 31.1 L, MCV 93.0, MCH 29.6, MCHC 31.8, RDW 13.5, Plt Count 451 H D, MPV 8.3, Neut % (Auto) 87.6 H, Lymph % (Auto) 4.9 L, [place] % (Auto) 7.0, Eos % (Auto) 0.4, Baso % (Auto) 0.2, Neut # (Auto) 19.5 H, Lymph # (Auto) 1.1, [place] # (Auto) 1.6 H, Eos # (Auto) 0.1, Baso # (Auto) 0.1, Total Counted 100, Neutrophils % (Manual) 87 H, Lymphocytes % (Manual) 5 L, Monocytes % (Manual) 8, Platelet Estimate Slight increase, RBC Morphology Normal 10/27/21 06:23: Sodium 129 L, Potassium 3.3 L, Chloride 88 L, Carbon Dioxide 33 H, Anion Gap 11.3, BUN 14, Creatinine 0.50 L, Estimated Creat Clear 40, Estimated GFR 120, Est GFR ( Amer) 145, Glucose 78 D, Calcium 7.1 L I & O for Last 24 hours: Intake & Output 10/24/21 10/25/21 10/26/21 10/27/21 23:59 23:59 23:59 23:59 Intake Total 460 / 460 940 / 940 1140 / 1140 188 / 188 Output Total 500 / 500 1150 / 1450 1432 / 1432 1048 / 1048 Balance -40 / -40 -210 / -510 -292 / -292 -860 / -860 Weight 118 lb 12.8 oz 118 lb 6.4 oz 117 lb 3 oz 117 lb 15.369 oz Microbiology Reports for the Last 24 Hours: Microbiology 10/26/21 15:20 Pleural Fluid - Pleura Gram Stain - Final Constitutional Constitutional: no acute distress *Routine Respiratory Exam Respiratory: Present CTA bilaterally and symmetric chest movement *Routine Cardiovascular Exam Cardiovascular: Present Normal S1 and Normal S2 Comments: afib *Routine Abdominal Exam Abdominal: Present soft and normoactive bowel sounds; Absent tenderness *Routine Extremities Exam Extremities: Present full ROM and normal capillary refill; Absent edema *Routine Skin Exam Skin: Present intact, dry and warm Detailed Neck Exam: Thyroids Thyroid: Absent bruit Progress Note: A&P Assessment and plan (1) Pneumothorax: Status: Acute (2) Acute respiratory failure with hypoxia: Status: Acute (3) Pneumonia: Status: Acute (4) Atrial fibrillation: Status: Acute (5) Hypertension: Status: Acute (6) HLD (hyperlipidemia): Status: Acute Assessment and Plan Assessment and Plan for All Diagnoses:: Assessment and Plan for All Diagnoses:: Plan: 1.? The patient was admitted to the hospital with acute respiratory failure.? She was on mechanical ventilation and has now been extubated.? The patient also had a pneumothorax with chest tube placement.? Her pneumothorax did resolve with the placement of the chest tube.? This is being managed by pulmonology.? Will defer. 2.? The patient did go into atrial fibrillation with RVR.? She was treated with metoprolol and the patient did convert back to sinus rhythm.? Her heart rate was well controlled but this morning her heart rate has been getting up into the 90s and low 100s.? We will increase her metoprolol to 50 mg
--- NOTE | 2021-10-27 09:37 | XR_ITS ---
FINAL REPORT CLINICAL HISTORY: Effusion COMPARISON: One day prior FINDINGS: A right-sided chest tube remains in place. A left-sided PICC line terminates in the SVC. The heart size is normal. The mediastinum is normal. There are stable chronic changes in the lungs. There has been significant decrease in the right pleural effusion. A small residual right pleural effusion remains. There is no pneumothorax. IMPRESSION: Significant decrease in a right pleural effusion with a small residual effusion remaining. Reviewed, Interpreted and Dictated by Jevon Baig MD Transcribed by Elver Radford Authenticated and [facility]
--- NOTE | 2021-10-27 09:37 | EXP.PULM.PN ---
Subjective *Date: 10/27/21 *Time: 10:47 Interval history: No acute respiratory vents overnight. Continues to have pain. Worsening leukocytosis. Continue to have cough and productive phlegm Pulmonology Exam Inpatient Vital signs and Labs for Last 24 Hours: Temp Pulse Resp BP Pulse Ox FiO2 98.8 F 80 18 112/54 L 92 L 28 10/27/21 04:00 10/27/21 06:34 10/27/21 04:00 10/27/21 04:00 10/27/21 06:34 10/25/21 20:43 Laboratory Results - last 24 hr 10/26/21 09:56: Sodium 134 L, Potassium 3.4 L, Chloride 92 L, Carbon Dioxide 36 H, Anion Gap 9.4, BUN 13, Creatinine 0.50 L, Estimated Creat Clear 40, Estimated GFR 120, Est GFR ( Amer) 145, Glucose 108 H, Calcium 7.5 L, Total Bilirubin 0.2, AST 39 H, ALT 28, Alkaline Phosphatase 99, Lactate Dehydrogenase 211 L, Total Protein 5.7 L, Albumin 2.8 L, Globulin 2.9, Albumin/Globulin Ratio 1.0 L 10/26/21 12:15: Tobramycin Trough 0.8 10/26/21 15:20: Fluid Source Thoracentesis fluid, Fluid Volume 16, Fluid Appearance Bloody, Fluid RBC (Auto) 51, Fld Tot Nucleated Cell 488, Fld Polynuclear WBCs % 50, Fld Mononuclear WBCs % 50 10/27/21 06:23: WBC 22.3 H* D, RBC 3.35 L, Hgb 9.9 L, Hct 31.1 L, MCV 93.0, MCH 29.6, MCHC 31.8, RDW 13.5, Plt Count 451 H D, MPV 8.3, Neut % (Auto) 87.6 H, Lymph % (Auto) 4.9 L, [place] % (Auto) 7.0, Eos % (Auto) 0.4, Baso % (Auto) 0.2, Neut # (Auto) 19.5 H, Lymph # (Auto) 1.1, [place] # (Auto) 1.6 H, Eos # (Auto) 0.1, Baso # (Auto) 0.1, Total Counted 100, Neutrophils % (Manual) 87 H, Lymphocytes % (Manual) 5 L, Monocytes % (Manual) 8, Platelet Estimate Slight increase, RBC Morphology Normal 10/27/21 06:23: Sodium 129 L, Potassium 3.3 L, Chloride 88 L, Carbon Dioxide 33 H, Anion Gap 11.3, BUN 14, Creatinine 0.50 L, Estimated Creat Clear 40, Estimated GFR 120, Est GFR ( Amer) 145, Glucose 78 D, Calcium 7.1 L I & O for Labs for Last 24 Hours: Intake & Output 10/24/21 10/25/21 10/26/21 10/27/21 23:59 23:59 23:59 23:59 Intake Total 460 / 460 940 / 940 1140 / 1140 188 / 188 Output Total 500 / 500 1150 / 1450 1432 / 1432 1048 / 1048 Balance -40 / -40 -210 / -510 -292 / -292 -860 / -860 Weight 118 lb 12.8 oz 118 lb 6.4 oz 117 lb 3 oz 117 lb 15.369 oz Microbiology Reports for the Last 24 Hours: Microbiology 10/26/21 15:20 Pleural Fluid - Pleura Gram Stain - Final Head: Present normocephalic and atraumatic ENT: Present normal exam Neck: Present normal inspection Respiratory: Present respiratory distress, rhonchi, diminished air movement and able to speak in complete sentences; Absent accessory muscle use, patient mechanically ventilated, wheezes or crackles Comment:: Right-sided chest tube in place. Cardiac: Present S1/S2, Tachycardia and radial pulses present GI: Present soft and distention; Absent tenderness or guarding Rectal (female): Present deferred (female): Present deferred Skin: Present intact; Absent cyanosis or jaundice Neuro: Present alert and oriented x 3; Absent awake Extremities: Present normal inspection; Absent clubbing or cyanosis Assessment and Plan *Assessment and plan (1) Pneumothorax: Status: Acute Category: Medical Code(s): J93.9 - Pneumothorax, unspecified (2) Acute respiratory failure with hypoxia: Status: Acute Category: Medical Code(s): J96.01 - Acute respiratory failure with hypoxia (3) Pneumonia: Status: Acute Qualifiers: Laterality: right Pneumonia type: due to Pseudomonas Category: Medical Code(s): J18.9 - Pneumonia, unspecified organism Plan #Pneumothorax: #Pseudomonas Pneumonia: #Right complicated/loculated pleural effusion #Bronchiectasis: Ms. Garcia is 76-year-old female with significant smoking requires a diagnosis of asthma, follicular bronchiolitis following in pulmonary clinic for exertional dyspnea had a bronchoscopy transbronchial biopsycomplicated by pneumothorax presented to the hospital later for worsening respiratory status jerson
--- NOTE | 2021-10-27 09:45 | EXP.ACUTE.PN ---
Subjective *Date: 10/27/21 *Time: 21:12 Interval history: 76-year-old female patient sitting up in bed resting quietly with eyes closed, she awakens to verbal stimuli. She reports she is not feeling any better today than yesterday. Right side chest tube to -20 cm of suction. Medical Exam Vital signs and Labs for Last 24 Hours: Temp Pulse Resp BP Pulse Ox FiO2 98.8 F 80 18 112/54 L 92 L 28 10/27/21 04:00 10/27/21 06:34 10/27/21 04:00 10/27/21 04:00 10/27/21 06:34 10/25/21 20:43 Laboratory Results - last 24 hr 10/26/21 09:56: Sodium 134 L, Potassium 3.4 L, Chloride 92 L, Carbon Dioxide 36 H, Anion Gap 9.4, BUN 13, Creatinine 0.50 L, Estimated Creat Clear 40, Estimated GFR 120, Est GFR ( Amer) 145, Glucose 108 H, Calcium 7.5 L, Total Bilirubin 0.2, AST 39 H, ALT 28, Alkaline Phosphatase 99, Lactate Dehydrogenase 211 L, Total Protein 5.7 L, Albumin 2.8 L, Globulin 2.9, Albumin/Globulin Ratio 1.0 L 10/26/21 12:15: Tobramycin Trough 0.8 10/26/21 15:20: Fluid Source Thoracentesis fluid, Fluid Volume 16, Fluid Appearance Bloody, Fluid RBC (Auto) 51, Fld Tot Nucleated Cell 488, Fld Polynuclear WBCs % 50, Fld Mononuclear WBCs % 50 10/27/21 06:23: WBC 22.3 H* D, RBC 3.35 L, Hgb 9.9 L, Hct 31.1 L, MCV 93.0, MCH 29.6, MCHC 31.8, RDW 13.5, Plt Count 451 H D, MPV 8.3, Neut % (Auto) 87.6 H, Lymph % (Auto) 4.9 L, [place] % (Auto) 7.0, Eos % (Auto) 0.4, Baso % (Auto) 0.2, Neut # (Auto) 19.5 H, Lymph # (Auto) 1.1, [place] # (Auto) 1.6 H, Eos # (Auto) 0.1, Baso # (Auto) 0.1, Total Counted 100, Neutrophils % (Manual) 87 H, Lymphocytes % (Manual) 5 L, Monocytes % (Manual) 8, Platelet Estimate Slight increase, RBC Morphology Normal 10/27/21 06:23: Sodium 129 L, Potassium 3.3 L, Chloride 88 L, Carbon Dioxide 33 H, Anion Gap 11.3, BUN 14, Creatinine 0.50 L, Estimated Creat Clear 40, Estimated GFR 120, Est GFR ( Amer) 145, Glucose 78 D, Calcium 7.1 L I & O for Labs for Last 24 Hours: Intake & Output 10/24/21 10/25/21 10/26/21 10/27/21 23:59 23:59 23:59 23:59 Intake Total 460 / 460 940 / 940 1140 / 1140 188 / 188 Output Total 500 / 500 1150 / 1450 1432 / 1432 1048 / 1048 Balance -40 / -40 -210 / -510 -292 / -292 -860 / -860 Weight 118 lb 12.8 oz 118 lb 6.4 oz 117 lb 3 oz 117 lb 15.369 oz Microbiology Reports for the Last 24 Hours: Microbiology 10/26/21 15:20 Pleural Fluid - Pleura Gram Stain - Final Constitutional: Present no acute distress and thin Head: Present atraumatic Eyes: Present as per HPI ENT: Present normal exam Neck: Present trachea midline Respiratory: Present rhonchi and diminished air movement; Absent accessory muscle use Cardiac: Present Reg Rate and Rhythm GI: Present soft and normal bowel sounds; Absent distention or tenderness Extremities: Present normal inspection and full ROM; Absent tenderness or edema Skin: Present intact and dry; Absent cyanosis, erythema or jaundice Neuro: Present Cranial Nerve 2-12 Intact, oriented x 3 and moves all extremities Assessment and Plan Assessment and plan all Dx Assessment and Plan All Dx:: 1. Pulm following 2. Cards following
--- NOTE | 2021-10-27 13:35 | PC.NURSE ---
ROUNDED ON PATIENT. OFFERED ASSISTANCE WITH LUNCH TRAY BUT REFUSED. DOES APPEAR MORE DOWN STATING ITS BEEN A ROUGH COUPLE OF DAYS . NO QUESTIONS OR CONCERNS AT THIS TIME. ENCOURAGED HER TO RING OUT NEEDED.
--- NOTE | 2021-10-27 17:30 | PC.NURSE ---
Patient VSS, Chest tube output 900mL, did not eat well today states she is just tired. No s/s of acute distress noted, call light within reach, bed at lowest level for safety; will continue to monitor.
[2021-10-28] VITALS (24 sets, daily range): BP systolic 55–126; BP diastolic 0–92; PULSE 66–89; RESP 16–40; TEMP 36.4–36.9; O2SAT 93–100; BMI 21.5
--- NOTE | 2021-10-28 08:06 | XR_ITS ---
FINAL REPORT TECHNIQUE: Single view chest CLINICAL HISTORY: SOA, abdominal breathing COMPARISON: One day prior FINDINGS: A single view of the chest was obtained. There is a left PICC with tip in the SVC. The heart and mediastinum are within normal limits. There are diffuse chronic changes. There is a questionable, minimal right base pneumothorax measuring 6 mm. Right chest tube remains in place. Osseous structures are unremarkable. IMPRESSION: Questionable, minimal right base pneumothorax with right chest tube in place. Reviewed, Interpreted and Dictated by Jevon Baig MD Transcribed by Wendy Orozco Authenticated and [facility]
[2021-10-28 08:30] LABS: Basophils # 0.1 K/mm3 (0-0.2); Basophils % 0.4 % (0.1-2.0); Eosinophils # 0.1 K/mm3 (0.0-0.4); Eosinophils % 0.3 % (0.1-12.0); Hematocrit 29.9 % (37.0-47.0); Hemoglobin 9.7 g/dL (12.2-16.2); Lymphocytes # 1.4 K/mm3 (0.7-4.5); Lymphocytes % 4.5 % (10-50); Mean Corpuscular HGB Conc 32.3 g/dL (31.8-35.4); Mean Corpuscular Volume 92.7 fl (81-99); Mean Platelet Volume 8.5 fl (7.4-10.4); Monocytes # 2.6 K/mm3 (0.1-1.0); Monocytes % 8.3 % (1.7-9.3); Neutrophils % 86.6 % (37.0-80.0); Platelet Count 515 K/mm3 (142-424); Red Blood Count 3.23 M/mm3 (4.20-5.40); Red Cell Distribution Width 13.6 % (11.5-17.5); White Blood Count 31.2 K/mm3 (4.8-10.8)
[2021-10-28 08:35] LABS: MANUAL DIFFERENTIAL MANUAL DIFFERENTIAL (MANUAL DIFF)
--- NOTE | 2021-10-28 08:50 | PC.NURSE ---
per jen, flush 10ml sodium chloride through chest tube
[2021-10-28 08:53] LABS: Anion Gap 17.9 mEq/L (5-15); Blood Urea Nitrogen 43 mg/dl (7-17); Calcium 6.5 mg/dl (8.4-10.2); Carbon Dioxide 23 mmol/L (22.0-30.0); Chloride 86 mmol/L (98-107); Creatinine Clearance Estimated 20 mL/min (50-200); Estimated Glomerular Filt Rate 24 ml/min (>60); GFR (African American) 29 ML/MIN (>60); Glucose 67 mg/dl (74-100); Potassium 4.9 mmoL/L (3.5-5.1); Sodium 122 mmol/L (136-145)
--- NOTE | 2021-10-28 09:05 | EXP.PULM.PN ---
Subjective *Date: 10/28/21 *Time: 11:23 Interval history: Patient had episode of worsening respiratory distress with tachypnea this morning Pulmonology Exam Inpatient Vital signs and Labs for Last 24 Hours: Temp Pulse Resp BP Pulse Ox FiO2 97.9 F 66 40 H 117/92 H 100 28 10/28/21 08:00 10/28/21 08:00 10/28/21 08:00 10/28/21 08:00 10/28/21 08:00 10/27/21 18:17 Laboratory Results - last 24 hr 10/28/21 08:10: WBC 31.2 H* D, RBC 3.23 L, Hgb 9.7 L, Hct 29.9 L, MCV 92.7, MCH 30.0, MCHC 32.3, RDW 13.6, Plt Count 515 H, MPV 8.5, Neut % (Auto) 86.6 H, Lymph % (Auto) 4.5 L, [place] % (Auto) 8.3, Eos % (Auto) 0.3, Baso % (Auto) 0.4, Neut # (Auto) 27.0 H, Lymph # (Auto) 1.4, [place] # (Auto) 2.6 H, Eos # (Auto) 0.1, Baso # (Auto) 0.1 10/28/21 08:10: Sodium 122 L, Potassium 4.9 D, Chloride 86 L, Carbon Dioxide 23, Anion Gap 17.9 H, BUN 43 H D, Creatinine 2.00 H D, Estimated Creat Clear 20, Estimated GFR 24 L, Est GFR ( Amer) 29 L D, Glucose 67 L, Calcium 6.5 L I & O for Labs for Last 24 Hours: Intake & Output 10/25/21 10/26/21 10/27/21 10/28/21 23:59 23:59 23:59 23:59 Intake Total 940 / 940 1140 / 1140 628 / 628 100 / 100 Output Total 1150 / 1450 1432 / 1432 1948 / 1948 600 / 600 Balance -210 / -510 -292 / -292 -1320 / -1320 -500 / -500 Weight 118 lb 6.4 oz 117 lb 3 oz 117 lb 15.369 oz 117 lb 1.929 oz Microbiology Reports for the Last 24 Hours: Microbiology 10/26/21 15:20 Pleural Fluid - Pleura Gram Stain - Final 10/26/21 15:20 Pleural Fluid - Pleura Body Fluid Culture - Preliminary NO GROWTH AFTER 24 HOURS 10/19/21 19:15 Sputum - Endotracheal Tube Aspirate - Final Not Reportable 10/19/21 19:15 Sputum - Endotracheal Tube Aspirate - Final Not Reportable 10/19/21 19:15 Sputum - Endotracheal Tube Aspirate - Final Not Reportable 10/19/21 19:15 Sputum - Endotracheal Tube Aspirate - Final Not Reportable 10/19/21 19:15 Sputum - Endotracheal Tube Aspirate - Final Not Reportable 10/19/21 19:15 Sputum - Endotracheal Tube Aspirate Gram Stain - Final 10/19/21 19:15 Sputum - Endotracheal Tube Aspirate Sputum Culture - Final Gram Negative Rods Head: Present normocephalic and atraumatic ENT: Present normal exam Neck: Present normal inspection Respiratory: Present respiratory distress, rhonchi, wheezes, diminished air movement and able to speak in complete sentences; Absent accessory muscle use, patient mechanically ventilated or crackles Comment:: Right-sided chest tube in place. Cardiac: Present S1/S2, Tachycardia and radial pulses present GI: Present soft and distention; Absent tenderness or guarding Rectal (female): Present deferred (female): Present deferred Skin: Present intact; Absent cyanosis or jaundice Neuro: Present alert and oriented x 3; Absent awake Extremities: Present normal inspection; Absent clubbing or cyanosis Assessment and Plan *Assessment and plan (1) Pneumothorax: Status: Acute Category: Medical Code(s): J93.9 - Pneumothorax, unspecified (2) Acute respiratory failure with hypoxia: Status: Acute Category: Medical Code(s): J96.01 - Acute respiratory failure with hypoxia (3) Pneumonia: Status: Acute Qualifiers: Laterality: right Pneumonia type: due to Pseudomonas Category: Medical Code(s): J18.9 - Pneumonia, unspecified organism Plan #Pneumothorax: #Pseudomonas Pneumonia: #Right complicated/loculated pleural effusion #Bronchiectasis: Ms. Garcia is 76-year-old female with significant smoking requires a diagnosis of asthma, follicular bronchiolitis following in pulmonary clinic for exertional dyspnea had a bronchoscopy transbronchial biopsycomplicated by pneumothorax presented to the hospital
--- NOTE | 2021-10-28 09:39 | EXP.ACUTE.PN ---
Subjective *Date: 10/28/21 *Time: 17:46 Interval history: 76-year old female patient sitting up in bed with increased respiratory effort, nursing reports she has had respiratory distress for several minutes and notified PCP. Patient denies any shortness of breath or chest pain Medical Exam Vital signs and Labs for Last 24 Hours: Temp Pulse Resp BP Pulse Ox FiO2 97.9 F 66 40 H 117/92 H 100 28 10/28/21 08:00 10/28/21 08:00 10/28/21 08:00 10/28/21 08:00 10/28/21 08:00 10/27/21 18:17 Laboratory Results - last 24 hr 10/28/21 08:10: WBC 31.2 H* D, RBC 3.23 L, Hgb 9.7 L, Hct 29.9 L, MCV 92.7, MCH 30.0, MCHC 32.3, RDW 13.6, Plt Count 515 H, MPV 8.5, Neut % (Auto) 86.6 H, Lymph % (Auto) 4.5 L, [place] % (Auto) 8.3, Eos % (Auto) 0.3, Baso % (Auto) 0.4, Neut # (Auto) 27.0 H, Lymph # (Auto) 1.4, [place] # (Auto) 2.6 H, Eos # (Auto) 0.1, Baso # (Auto) 0.1 10/28/21 08:10: Sodium 122 L, Potassium 4.9 D, Chloride 86 L, Carbon Dioxide 23, Anion Gap 17.9 H, BUN 43 H D, Creatinine 2.00 H D, Estimated Creat Clear 20, Estimated GFR 24 L, Est GFR ( Amer) 29 L D, Glucose 67 L, Calcium 6.5 L I & O for Labs for Last 24 Hours: Intake & Output 10/25/21 10/26/21 10/27/21 10/28/21 23:59 23:59 23:59 23:59 Intake Total 940 / 940 1140 / 1140 628 / 628 100 / 100 Output Total 1150 / 1450 1432 / 1432 1948 / 1948 600 / 600 Balance -210 / -510 -292 / -292 -1320 / -1320 -500 / -500 Weight 118 lb 6.4 oz 117 lb 3 oz 117 lb 15.369 oz 117 lb 1.929 oz Microbiology Reports for the Last 24 Hours: Microbiology 10/26/21 15:20 Pleural Fluid - Pleura Gram Stain - Final 10/26/21 15:20 Pleural Fluid - Pleura Body Fluid Culture - Preliminary NO GROWTH AFTER 24 HOURS 10/19/21 19:15 Sputum - Endotracheal Tube Aspirate - Final Not Reportable 10/19/21 19:15 Sputum - Endotracheal Tube Aspirate - Final Not Reportable 10/19/21 19:15 Sputum - Endotracheal Tube Aspirate - Final Not Reportable 10/19/21 19:15 Sputum - Endotracheal Tube Aspirate - Final Not Reportable 10/19/21 19:15 Sputum - Endotracheal Tube Aspirate - Final Not Reportable 10/19/21 19:15 Sputum - Endotracheal Tube Aspirate Gram Stain - Final 10/19/21 19:15 Sputum - Endotracheal Tube Aspirate Sputum Culture - Final Gram Negative Rod[place] Head: Present atraumatic Eyes: Present as per HPI ENT: Present normal exam Neck: Present normal inspection and trachea midline Respiratory: Present respiratory distress, rhonchi and wheezes; Absent accessory muscle use Cardiac: Present Tachycardia GI: Present soft and normal bowel sounds; Absent distention or tenderness Extremities: Present normal inspection and full ROM; Absent tenderness or edema Skin: Present intact and dry; Absent cyanosis or erythema Comment:: Chest tube intact to right side at -20 cm of suction with sanguinous drainage Neuro: Present Motor Function Intact and oriented x 3 Assessment and Plan *Assessment and plan (1) HLD (hyperlipidemia): Status: Acute Category: Medical Code(s): E78.5 - Hyperlipidemia, unspecified (2) Pneumothorax: Status: Acute Category: Medical Code(s): J93.9 - Pneumothorax, unspecified (3) Hypertension: Status: Acute Qualifiers: Hypertension type: primary hypertension Qualified Code(s): I10 - Essential (primary) hypertension Category: Medical Code(s): I10 - Essential (primary) hypertension (4) Chest tube in place: Status: Acute Category: Medical Code(s): Z96.89 - Presence of other specified functional implants (5) Pneumonia: Status: Acute Qualifiers: Pneumonia type: due to Pseudomonas Laterality: right Category: Medical Code(s): J18.9 - Pneumonia, unspecified or
[2021-10-28 09:43] LABS: Anisocytosis 1+; Hypochromasia 1+; Lymphocytes % 22 % (10-50); Monocytes % 3 % (2-9); Neutrophils % 75 % (42-76); Platelet Estimate Slight Increase; Total Cells Counted 100
--- NOTE | 2021-10-28 10:47 | DIET.NUTRFU ---
Patient denies egg allergy in food. She reports its to medication shots that contain eggs. She is requesting eggs. Will add on ticket and notify kitchen
--- NOTE | 2021-10-28 11:51 | XR_ITS ---
FINAL REPORT CLINICAL HISTORY: Pneumo COMPARISON: 3.5 hours prior FINDINGS: A left-sided PICC line and right-sided chest tube are unchanged. The heart size is normal. The mediastinum is normal. There are extensive chronic changes in both lungs. There are no pleural effusions. The previously question basilar pneumothorax is not well seen. There is no osseous abnormality. IMPRESSION: Previously question basilar pneumothorax not well seen. Otherwise stable exam. Reviewed, Interpreted and Dictated by Jevon Baig MD Transcribed by Elver Radford Authenticated and [facility]
--- NOTE | 2021-10-28 11:52 | PC.NURSE ---
BP too low for auscultation. Not audible with doppler. Dr. Caballero and Carli Avalos updated. Reviewed current labs, I&O status, and pt presentation with Dr. Caballero. He ordered a 1L LR bolus as pt appears to be on the dry side. He also ordered an ABG with lactic acid. RT (Lexi) updated. Order for LR faxed to pharmacy.
--- NOTE | 2021-10-28 12:07 | PC.NURSE ---
BP 55/PALP
--- NOTE | 2021-10-28 12:29 | CA_ITS ---
FINAL REPORT TECHNIQUE: Ultrasound images of the deep venous system were obtained from the left and right groin to the calf veins. CLINICAL HISTORY: Hypoxia, Rpid decline of BP, Respitory failure , Tension pneumothorax FINDINGS: The deep venous system is normally compressible bilaterally. Normal flow is identified. IMPRESSION: No evidence of left or right lower extremity DVT. Reviewed, Interpreted and Dictated by Jevon Baig MD Transcribed by Wendy Orozco Authenticated and [facility]
--- NOTE | 2021-10-28 12:38 | ECG_ITS ---
APPROVED REPORT Exam: Resting ECG HR:77 bpm ECG Measurements Heart Rate [address] 140 P 81 QRSd 95 QRS 50 QT 402 T 42 QTc 434 Conclusion SINUS RHYTHM NORMAL ECG UNCONFIRMED REPORT Electronically signed by : Raymond Griffith MD 10/28/2021 17:41:25
[2021-10-28 12:40] LABS: ABG Base Excess -6.9 mmol/L (-2.4-2.3); ABG HCO3 19.3 mmhg (22.0-26.0); ABG Oxygen Saturation 97 % (90-100); ABG PCO2 38.8 mmhg (35.0-45.0); ABG PH 7.31 mmol/L (7.35-7.45); ABG TCO2 20.5 mmhg (23-27)
[2021-10-28 12:42] LABS: Allen's Test Acceptable; Source Left Radial
[2021-10-28 12:43] LABS: Lactate Arterial 5.2 mmol/L (0.4-2.0)
--- NOTE | 2021-10-28 13:05 | PC.NURSE ---
pt now in room 216 and is step down status
--- NOTE | 2021-10-28 13:47 | PC.NURSE ---
1215 patient bp remained low requiring doppler to auscultate. respiratory at bedside attempting to get abg. dr li notified, that bp remains low, he stated to give a second 1000ml LR bolus and to start patient on levophed. also ordered blood cultures, and labs, instructed to also order vascular study of legs to evaluate for dvt. patient started on levophed gtt with improvement in bp. patient transferred over to stepdown room. tolerated move well. daughter notified in change of condition. patient educated. patient stated she felt a little better once bp improved.
[2021-10-28 13:52] LABS: Tobramycin,Trough 7.3 ug/ml (0-2.0)
[2021-10-28 14:27] LABS: MANUAL DIFFERENTIAL MANUAL DIFFERENTIAL (MANUAL DIFF)
--- NOTE | 2021-10-28 14:37 | DIET.NUTRFU ---
Patient moved to step down d/t decline in respiratory state. She has been refusing most meals last two days d/t not feeling good. She is receiving boost clear with meals for extra calories and protein but has not been drinking. Was eating strawberries today reported patient. Family at bedside encouraging her try some soup. RD reviewed foods always available that she could request, but did not want anything at that time. Will continue to follow po intake and overall condition. Labs from today indicate Na 122L, BUN 43H, Cr 2.0H (all worse), lasix provided on 10/22, 10/23. IVF provided today, bolus.
[2021-10-28 14:43] LABS: Basophils # 0.1 K/mm3 (0-0.2); Basophils % 0.3 % (0.1-2.0); Hematocrit 32.1 % (37.0-47.0); Lymphocytes # 1.1 K/mm3 (0.7-4.5); Lymphocytes % 2.7 % (10-50); Mean Corpuscular HGB Conc 31.1 g/dL (31.8-35.4); Mean Corpuscular Hemoglobin 29.4 pg (27.0-31.2); Mean Corpuscular Volume 94.6 fl (81-99); Mean Platelet Volume 8.6 fl (7.4-10.4); Monocytes % 7.2 % (1.7-9.3); Neutrophils # 37.8 K/mm3 (1.8-7.8); Neutrophils % 89.8 % (37.0-80.0); Platelet Count 641 K/mm3 (142-424); Red Cell Distribution Width 13.8 % (11.5-17.5)
--- NOTE | 2021-10-28 14:49 | PC.NURSE ---
received call from lab reporting WBC 42.0. Name and verified. Dr. Caballero updated.
[2021-10-28 14:54] LABS: Lactic Acid 3.1 mmol/L (0.7-2.1)
[2021-10-28 15:00] LABS: Chloride 88 mmol/L (98-107); Sodium 124 mmol/L (136-145)
[2021-10-28 15:03] LABS: Alanine Aminotransferase 35 U/L (12-78); Aspartate Amino Transferase 67 U/L (14-36); Bilirubin,Total 0.4 mg/dl (0.2-1.3); Blood Urea Nitrogen 43 mg/dl (7-17); Carbon Dioxide 20 mmol/L (22.0-30.0); Magnesium 1.7 mg/dl (1.6-2.3)
[2021-10-28 15:09] LABS: Lymphocytes % 3 % (10-50); Monocytes % 8 % (2-9); Neutrophils % 89 % (42-76); Total Cells Counted 100
[2021-10-28 15:10] LABS: Creatinine Clearance Estimated 17 mL/min (50-200); Estimated Glomerular Filt Rate 20 ml/min (>60); GFR (African American) 24 ML/MIN (>60); RBC Morphology Normal
[2021-10-28 15:11] LABS: Platelet Estimate Moderate Increase
[2021-10-28 15:18] LABS: Albumin Level 2.1 g/dl (3.5-5.0); Alkaline Phosphatase 59 U/L (38-126); Calcium 6.2 mg/dl (8.4-10.2); Globulin 2.2 g/dL (1.3-3.2); Glucose 99 mg/dl (74-100); Total Protein,Serum 4.3 g/dl (6.3-8.2)
--- NOTE | 2021-10-28 15:18 | EXP.PHA.CONS ---
Pharmacy Consult Date: 10/28/21 Time: 15:18 Referring provider: DR. FAIR Reason for Consult:: TOBRAMYCIN LEVEL Allergies Allergy/AdvReac Type Severity Reaction Status Date / Time egg Allergy Severe Swelling Verified 10/19/21 09:48 of Lip/Tongue/Throat levofloxacin [From Levaquin] Allergy Severe Swelling Verified 10/19/21 09:48 of Lip/Tongue/Throat clarithromycin [From Biaxin] Allergy Mild Hives Verified 10/19/21 09:48 phenytoin [From Dilantin] Allergy Mild Hives Verified 10/19/21 09:48 alendronate sodium Allergy rash, hives Verified 10/19/21 09:48 [From Fosamax] oxycodone AdvReac vomiting Verified 10/19/21 09:48 Home Medications Medication Instructions Recorded Confirmed Type denosumab 60 mg/mL subcutaneous 60 mg SQ [id number] osteoporosis #1 08/13/21 10/19/21 Rx syringe (Prolia) mL albuterol sulfate 1.25 mg/3 mL 1.25 mg inhalation Q6 COPD 10/16/21 10/19/21 History solution for nebulization amlodipine 10 mg-benazepril 40 mg 1 cap PO DAILY Hypertension 10/16/21 10/19/21 History capsule cholecalciferol (vitamin D3) 125 125 mcg PO DAILY Supplement 10/16/21 10/19/21 History mcg (5,000 unit) capsule meloxicam 15 mg tablet 15 mg PO DAILY Pain 10/16/21 10/19/21 History montelukast 10 mg tablet 10 mg PO DAILY Allergy symptoms 10/16/21 10/19/21 History fluticasone propionate 230 1 puff inhalation BID COPD 10/19/21 10/19/21 History mcg-salmeterol 21 mcg/actuation HFA inhaler (Advair HFA) tiotropium bromide 18 mcg capsule 1 cap inhalation DAILY COPD 10/19/21 10/20/21 History with inhalation device (Spiriva with HandiHaler) aspirin 81 mg tablet,delayed 81 mg PO DAILY HEART HEALTH 10/20/21 10/20/21 History release New Prescriptions to Start Prescriptions: Height: 1.57 m Weight: 53.125 kg Laboratory Results:: Laboratory Results - last 24 hr 10/28/21 08:10: WBC 31.2 H* D, RBC 3.23 L, Hgb 9.7 L, Hct 29.9 L, MCV 92.7, MCH 30.0, MCHC 32.3, RDW 13.6, Plt Count 515 H, MPV 8.5, Neut % (Auto) 86.6 H, Lymph % (Auto) 4.5 L, [place] % (Auto) 8.3, Eos % (Auto) 0.3, Baso % (Auto) 0.4, Neut # (Auto) 27.0 H, Lymph # (Auto) 1.4, [place] # (Auto) 2.6 H, Eos # (Auto) 0.1, Baso # (Auto) 0.1, Total Counted 100, Neutrophils % (Manual) 75, Lymphocytes % (Manual) 22, Monocytes % (Manual) 3, Platelet Estimate Slight increase, Hypochromasia 1+, Anisocytosis 1+ 10/28/21 08:10: Sodium 122 L, Potassium 4.9 D, Chloride 86 L, Carbon Dioxide 23, Anion Gap 17.9 H, BUN 43 H D, Creatinine 2.00 H D, Estimated Creat Clear 20, Estimated GFR 24 L, Est GFR ( Amer) 29 L D, Glucose 67 L, Calcium 6.5 L 10/28/21 11:51: Specimen Source Left radial, O2 % 3l nc, ABG pH 7.31 L, ABG pCO2 38.8, ABG pO2 100.0, ABG HCO3 19.3 L, ABG Total CO2 20.5 L, ABG O2 Saturation 97, ABG Base Excess -6.9 L, Tevin Test Acceptable 10/28/21 11:51: ABG Lactate 5.2 H 10/28/21 13:00: Tobramycin Trough 7.3 H 10/28/21 14:12: WBC 42.0 H* D, RBC 3.40 L, Hgb 10.0 L, Hct 32.1 L, MCV 94.6, MCH 29.4, MCHC 31.1 L, RDW 13.8, Plt Count 641 H, MPV 8.6, Neut % (Auto) 89.8 H, Lymph % (Auto) 2.7 L, [place] % (Auto) 7.2, Eos % (Auto) 0.0 L, Baso % (Auto) 0.3, Neut # (Auto) 37.8 H, Lymph # (Auto) 1.1, [place] # (Auto) 3.0 H, Eos # (Auto) 0.0, Baso # (Auto) 0.1, Total Counted 100, Neutrophils % (Manual) 89 H, Lymphocytes % (Manual) 3 L, Monocytes % (Manual) 8, Platelet Estimate Moderate increase, RBC Morphology Normal 10/28/21 14:12: Sodium 124 L, Potassium 5.0, Chloride 88 L, Carbon Dioxide 20 L, Anion Gap 21.0 H, BUN 43 H, Creatinine 2.40 H, Estimated Creat Clear 17, Estimated GFR 20 L, Est GFR ( Amer) 24 L, Total Bilirubin 0.4, AST 67 H D, ALT 35 10/28/21 14:12: Magnesium 1.7 10/28/21 14:12: Lactate 3.1 H Medical History: Medical History (Updated 10/26/21 @ 11:50 by Valdo Berry MD) Acute respiratory failure with hypoxia Asthma Atrial fibrillation Atypical pneumonia Bronchiectasis with (acute) exacerbation Bronchiolitis Bronchitis Chest tube in place
[2021-10-28 15:26] LABS: Phosphorous 7.1 mg/dl (2.5-4.5)
[2021-10-28 15:39] LABS: Troponin I 0.01 ng/ml (0.00-0.034)
[2021-10-28 15:43] LABS: Albumin, Body Fluid 2.1 g/dL (Not Estab.); Glucose, Body Fluid 38 mg/dL (.); LD, Body Fluid 1321 IU/L (.); Protein, Body Fluid 3.8 g/dL (.)
[2021-10-28 16:43] LABS: Reflex Lactic Add Lactic Reflex
[2021-10-28 18:29] LABS: Lactic Acid Follow Up (RFLX 1) 1.4 mmol/L (0.7-2.1)
--- NOTE | 2021-10-28 18:51 | PC.NURSE ---
shift summary: Pt has improved since mile in the shift. She is more alert. GCS 15. No longer having dyspnea. Breathing is no longer labored. O2 sat mid to high 90s on 3L NC. Bilateral lungs with ronchi and crackles. Productive cough noted. NSR on tele. Hypotension but on Levophed gtt @ 14mcg/min. Goal is MAP 60.
[2021-10-29] VITALS (24 sets, daily range): BP systolic 85–145; BP diastolic 31–81; PULSE 76–98; RESP 23–35; TEMP 36.5–36.8; O2SAT 92–99; BMI 21.5
--- NOTE | 2021-10-29 03:11 | XR_ITS ---
PROCEDURE INFORMATION: Exam: XR Chest Exam date and time: 10/29/2021 3:11 AM Age: 76 years old Clinical indication: Condition or disease; Lung condition and disease; Respiratory distress; Additional info: Worsening respiratory status TECHNIQUE: Imaging protocol: Radiologic exam of the chest. Views: 1 view. COMPARISON: CR XR CHEST PORTABLE 10/28/2021 11:53 AM FINDINGS: Tubes, catheters and devices: There is a right-sided chest tube in stable position. There is a left-sided PICC line with its tip in the SVC. Lungs: Hyperinflation with stable chronic interstitial prominence consistent with COPD. Pleural spaces: Unremarkable. No pleural effusion. No pneumothorax. Heart/Mediastinum: Unremarkable. No cardiomegaly. Bones/joints: Degenerative changes throughout the spine. There are old left rib fractures. 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 No acute cardiopulmonary abnormality. Support lines and tubes in stable positions.
--- NOTE | 2021-10-29 03:25 | PC.NURSE ---
DR. Caballero notified of pt respiratory decline. Pt c/o soa. Tachypneic. Respirations 30s. Labored breathing. New orders received. CXR obtained. High flow O2 @ 30L FiO2 50%. Vancomycin consult dosed for renal.
[2021-10-29 03:46] LABS: Microscopic, Urine URINE MICROSCOPIC (MICROSCOPIC)
[2021-10-29 03:58] LABS: Appearance,Urine CLEAR (Clear); Bilirubin,Urine Negative (Negative); Blood, Urine 3+ (Negative); Color,Urine YELLOW (Yellow); Glucose,Urine (UA) Negative (Negative); Ketones,Urine Negative (Negative); Leukocyte Esterase,Urine Negative (Negative); Nitrate,Urine Negative (Negative); Protein,Urine TRACE (Negative); Urobilinogen,Urine 0.2 EU/dl (0.2)
[2021-10-29 04:14] LABS: Bacteria,Urine 1+ /lpf
--- NOTE | 2021-10-29 04:44 | PC.NURSE ---
Pt continues to c/o soa. MD Caballero notified that pt stated that she feels like she is dying. New orders received to place pt on vasopressin @ 0.04units/min flat rate. No titration. Orders carried out. Pt remains on 30L 50% vapotherm. Lungs noted to have rhonchi t/o. O2 sat is 97%. Pt continues to moan but denies any pain. CT to 20 cm suction. 230 ml of sanguineous drainage noted. Levophed is currently infusing @ 18 mcg/min. Vasopressin is infusing @ 0.04 units/min. Vancomycin is infusing @ 125 ml/hr. New IV placed in RAC #22. F/C draining to bedside with total urine output of 450 ml.
--- NOTE | 2021-10-29 06:14 | PC.NURSE ---
Pt states she is feeling better. VSS. Levophed titrated down to 16 mcg/min.
[2021-10-29 07:28] LABS: Blood Urea Nitrogen 58 mg/dl (7-17); Calcium 5.9 mg/dl (8.4-10.2); Carbon Dioxide 19 mmol/L (22.0-30.0); Chloride 83 mmol/L (98-107); Glucose 174 mg/dl (74-100); Sodium 117 mmol/L (136-145)
[2021-10-29 07:34] LABS: Basophils # 0.3 K/mm3 (0-0.2); Basophils % 0.6 % (0.1-2.0); Hematocrit 31.1 % (37.0-47.0); Hemoglobin 9.3 g/dL (12.2-16.2); Lymphocytes # 1.6 K/mm3 (0.7-4.5); Lymphocytes % 2.9 % (10-50); Mean Corpuscular Hemoglobin 28.6 pg (27.0-31.2); Mean Corpuscular Volume 95.3 fl (81-99); Mean Platelet Volume 8.7 fl (7.4-10.4); Monocytes # 3.2 K/mm3 (0.1-1.0); Neutrophils # 48.6 K/mm3 (1.8-7.8); Neutrophils % 90.5 % (37.0-80.0); Platelet Count 680 K/mm3 (142-424); Red Blood Count 3.26 M/mm3 (4.20-5.40); Red Cell Distribution Width 13.8 % (11.5-17.5)
[2021-10-29 07:35] LABS: Creatinine Clearance Estimated 13 mL/min (50-200); Estimated Glomerular Filt Rate 15 ml/min (>60); GFR (African American) 18 ML/MIN (>60)
[2021-10-29 07:54] LABS: White Blood Count 53.7 K/mm3 (4.8-10.8)
--- NOTE | 2021-10-29 07:54 | PC.NURSE ---
received call from lab reporting WBC 53.7. Name and verified. Dr. Jimenez updated.
[2021-10-29 07:56] LABS: MANUAL DIFFERENTIAL MANUAL DIFFERENTIAL (MANUAL DIFF)
--- NOTE | 2021-10-29 08:22 | EXP.PHA.CONS ---
Pharmacy Consult Date: 10/29/21 Time: : Referring provider: DR. FAIR Reason for Consult:: VANCOMYCIN DOSING Allergies Allergy/AdvReac Type Severity Reaction Status Date / Time egg Allergy Severe Swelling Verified 10/19/21 09:48 of Lip/Tongue/Throat levofloxacin [From Levaquin] Allergy Severe Swelling Verified 10/19/21 09:48 of Lip/Tongue/Throat clarithromycin [From Biaxin] Allergy Mild Hives Verified 10/19/21 09:48 phenytoin [From Dilantin] Allergy Mild Hives Verified 10/19/21 09:48 alendronate sodium Allergy rash, hives Verified 10/19/21 09:48 [From Fosamax] oxycodone AdvReac vomiting Verified 10/19/21 09:48 Home Medications Medication Instructions Recorded Confirmed Type denosumab 60 mg/mL subcutaneous 60 mg SQ [id number] osteoporosis #1 08/13/21 10/19/21 Rx syringe (Prolia) mL albuterol sulfate 1.25 mg/3 mL 1.25 mg inhalation Q6 COPD 10/16/21 10/19/21 History solution for nebulization amlodipine 10 mg-benazepril 40 mg 1 cap PO DAILY Hypertension 10/16/21 10/19/21 History capsule cholecalciferol (vitamin D3) 125 125 mcg PO DAILY Supplement 10/16/21 10/19/21 History mcg (5,000 unit) capsule meloxicam 15 mg tablet 15 mg PO DAILY Pain 10/16/21 10/19/21 History montelukast 10 mg tablet 10 mg PO DAILY Allergy symptoms 10/16/21 10/19/21 History fluticasone propionate 230 1 puff inhalation BID COPD 10/19/21 10/19/21 History mcg-salmeterol 21 mcg/actuation HFA inhaler (Advair HFA) tiotropium bromide 18 mcg capsule 1 cap inhalation DAILY COPD 10/19/21 10/20/21 History with inhalation device (Spiriva with HandiHaler) aspirin 81 mg tablet,delayed 81 mg PO DAILY HEART HEALTH 10/20/21 10/20/21 History release New Prescriptions to Start Prescriptions: Height: 1.57 m Weight: 53.125 kg Laboratory Results:: Laboratory Results - last 24 hr 10/26/21 15:20: Fluid Glucose 38, Fluid Total Protein 3.8, Fluid Albumin 2.1, Fluid LDH 1321 10/28/21 08:10: WBC 31.2 H* D, RBC 3.23 L, Hgb 9.7 L, Hct 29.9 L, MCV 92.7, MCH 30.0, MCHC 32.3, RDW 13.6, Plt Count 515 H, MPV 8.5, Neut % (Auto) 86.6 H, Lymph % (Auto) 4.5 L, [place] % (Auto) 8.3, Eos % (Auto) 0.3, Baso % (Auto) 0.4, Neut # (Auto) 27.0 H, Lymph # (Auto) 1.4, [place] # (Auto) 2.6 H, Eos # (Auto) 0.1, Baso # (Auto) 0.1, Total Counted 100, Neutrophils % (Manual) 75, Lymphocytes % (Manual) 22, Monocytes % (Manual) 3, Platelet Estimate Slight increase, Hypochromasia 1+, Anisocytosis 1+ 10/28/21 08:10: Sodium 122 L, Potassium 4.9 D, Chloride 86 L, Carbon Dioxide 23, Anion Gap 17.9 H, BUN 43 H D, Creatinine 2.00 H D, Estimated Creat Clear 20, Estimated GFR 24 L, Est GFR ( Amer) 29 L D, Glucose 67 L, Calcium 6.5 L 10/28/21 11:51: Specimen Source Left radial, O2 % 3l nc, ABG pH 7.31 L, ABG pCO2 38.8, ABG pO2 100.0, ABG HCO3 19.3 L, ABG Total CO2 20.5 L, ABG O2 Saturation 97, ABG Base Excess -6.9 L, Tevin Test Acceptable 10/28/21 11:51: ABG Lactate 5.2 H 10/28/21 13:00: Tobramycin Trough 7.3 H 10/28/21 14:12: WBC 42.0 H* D, RBC 3.40 L, Hgb 10.0 L, Hct 32.1 L, MCV 94.6, MCH 29.4, MCHC 31.1 L, RDW 13.8, Plt Count 641 H, MPV 8.6, Neut % (Auto) 89.8 H, Lymph % (Auto) 2.7 L, [place] % (Auto) 7.2, Eos % (Auto) 0.0 L, Baso % (Auto) 0.3, Neut # (Auto) 37.8 H, Lymph # (Auto) 1.1, [place] # (Auto) 3.0 H, Eos # (Auto) 0.0, Baso # (Auto) 0.1, Total Counted 100, Neutrophils % (Manual) 89 H, Lymphocytes % (Manual) 3 L, Monocytes % (Manual) 8, Platelet Estimate Moderate increase, RBC Morphology Normal 10/28/21 14:12: Sodium 124 L, Potassium 5.0, Chloride 88 L, Carbon Dioxide 20 L, Anion Gap 21.0 H, BUN 43 H, Creatinine 2.40 H, Estimated Creat Clear 17, Estimated GFR 20 L, Est GFR ( Amer) 24 L, Glucose 99 D, Calcium 6.2 L, Total Bilirubin 0.4, AST 67 H D, ALT 35, Alkaline Phosphatase 59, Total Protein 4.3 L, Albumin 2.1 L, Globulin 2.2, Albumin/Globulin Ratio 1.0 L 10/28/21 14:12: Magnesium 1.7 10/28/21 14:12: Phosphorus 7.1 H, Troponin I 0.01 10/28/21 14:12: L
--- NOTE | 2021-10-29 09:20 | EXP.ACUTE.PN ---
Subjective *Date: 10/29/21 *Time: 09:20 Interval history: 76-year-old female patient resting quietly in bed she does report some increased shortness of breath during the night as well as this morning. She was hypotensive yesterday requiring Levophed to be initiated and is currently running at 12 mcg/kg/min vasopressin was also added on. She did develop some respiratory distress during the night and Vapotherm was applied. Heart rate was in 120s, respiratory rate 24, lactate 5.2, hypotension requiring Levophed and vasopressin, elevated white blood cell count, and pulmonary/critical care Is treating septic shock Medical Exam Vital signs and Labs for Last 24 Hours: Temp Pulse Resp BP Pulse Ox FiO2 97.7 F 95 H 32 H 139/47 L 98 40 10/29/21 07:33 10/29/21 06:22 10/29/21 06:00 10/29/21 06:00 10/29/21 06:22 10/29/21 06:22 Laboratory Results - last 24 hr 10/26/21 15:20: Fluid Glucose 38, Fluid Total Protein 3.8, Fluid Albumin 2.1, Fluid LDH 1321 10/28/21 08:10: Total Counted 100, Neutrophils % (Manual) 75, Lymphocytes % (Manual) 22, Monocytes % (Manual) 3, Platelet Estimate Slight increase, Hypochromasia 1+, Anisocytosis 1+ 10/28/21 11:51: Specimen Source Left radial, O2 % 3l nc, ABG pH 7.31 L, ABG pCO2 38.8, ABG pO2 100.0, ABG HCO3 19.3 L, ABG Total CO2 20.5 L, ABG O2 Saturation 97, ABG Base Excess -6.9 L, Tevin Test Acceptable 10/28/21 11:51: ABG Lactate 5.2 H 10/28/21 13:00: Tobramycin Trough 7.3 H 10/28/21 14:12: WBC 42.0 H* D, RBC 3.40 L, Hgb 10.0 L, Hct 32.1 L, MCV 94.6, MCH 29.4, MCHC 31.1 L, RDW 13.8, Plt Count 641 H, MPV 8.6, Neut % (Auto) 89.8 H, Lymph % (Auto) 2.7 L, [place] % (Auto) 7.2, Eos % (Auto) 0.0 L, Baso % (Auto) 0.3, Neut # (Auto) 37.8 H, Lymph # (Auto) 1.1, [place] # (Auto) 3.0 H, Eos # (Auto) 0.0, Baso # (Auto) 0.1, Total Counted 100, Neutrophils % (Manual) 89 H, Lymphocytes % (Manual) 3 L, Monocytes % (Manual) 8, Platelet Estimate Moderate increase, RBC Morphology Normal 10/28/21 14:12: Sodium 124 L, Potassium 5.0, Chloride 88 L, Carbon Dioxide 20 L, Anion Gap 21.0 H, BUN 43 H, Creatinine 2.40 H, Estimated Creat Clear 17, Estimated GFR 20 L, Est GFR ( Amer) 24 L, Glucose 99 D, Calcium 6.2 L, Total Bilirubin 0.4, AST 67 H D, ALT 35, Alkaline Phosphatase 59, Total Protein 4.3 L, Albumin 2.1 L, Globulin 2.2, Albumin/Globulin Ratio 1.0 L 10/28/21 14:12: Magnesium 1.7 10/28/21 14:12: Phosphorus 7.1 H, Troponin I 0.01 10/28/21 14:12: Lactate 3.1 H 10/28/21 18:10: Lactate 1.4 10/29/21 02:18: Urine Color Yellow, Urine Appearance Clear, Urine pH 6.0, Ur Specific [place] 1.020, Urine Protein Trace, Urine Glucose (UA) Negative, Urine Ketones Negative, Urine Blood 3+, Urine Nitrate Negative, Urine Bilirubin Negative, Urine Urobilinogen 0.2, Ur Leukocyte Esterase Negative, Urine RBC 10-20, Urine Bacteria 1+ 10/29/21 06:35: Sodium 117 L, Potassium 5.0, Chloride 83 L, Carbon Dioxide 19 L, Anion Gap 20.0 H, BUN 58 H D, Creatinine 3.10 H D, Estimated Creat Clear 13, Estimated GFR 15 L*, Est GFR ( Amer) 18 L* D, Glucose 174 H D, Calcium 5.9 L 10/29/21 06:35: WBC 53.7 H* D, RBC 3.26 L, Hgb 9.3 L, Hct 31.1 L, MCV 95.3, MCH 28.6, MCHC 30.0 L, RDW 13.8, Plt Count 680 H, MPV 8.7, Neut % (Auto) 90.5 H, Lymph % (Auto) 2.9 L, [place] % (Auto) 6.0, Eos % (Auto) 0.0 L, Baso % (Auto) 0.6, Neut # (Auto) 48.6 H, Lymph # (Auto) 1.6, [place] # (Auto) 3.2 H, Eos # (Auto) 0.0, Baso # (Auto) 0.3 H I & O for Labs for Last 24 Hours: Intake & Output 10/26/21 10/27/21 10/28/21 10/29/21 23:59 23:59 23:59 23:59 Intake Total 1140 / 1140 628 / 628 2766.346 / 2766.346 760.64 / 760.64 Output Total 1432 / 1432 1948 / 1948 1090 / 1090 680 / 680 Balance -292 / -292 -1320 / -1320 1676.346 / 1676.346 80.64 / 80.64 Weight 117 lb 3 oz 117 lb 15.369 oz 117 lb 1.929 oz 117 lb 1.929 oz Microbiology Reports for the Last 24 Hours: Microbiology 10/19/21 19:15 Sputum - Endotracheal Tube Aspirate - Preliminary 10/19/21 19:15 Sputum - Endotracheal Tube Aspirate
--- NOTE | 2021-10-29 09:28 | EXP.PULM.PN ---
Subjective *Date: 10/29/21 *Time: 10:21 Interval history: Patient complains of worsening respiratory's along with weakness and fatigue Pulmonology Exam Inpatient Vital signs and Labs for Last 24 Hours: Temp Pulse Resp BP Pulse Ox FiO2 97.7 F 95 H 32 H 139/47 L 98 40 10/29/21 07:33 10/29/21 06:22 10/29/21 06:00 10/29/21 06:00 10/29/21 06:22 10/29/21 06:22 Laboratory Results - last 24 hr 10/26/21 15:20: Fluid Glucose 38, Fluid Total Protein 3.8, Fluid Albumin 2.1, Fluid LDH 1321 10/28/21 08:10: Total Counted 100, Neutrophils % (Manual) 75, Lymphocytes % (Manual) 22, Monocytes % (Manual) 3, Platelet Estimate Slight increase, Hypochromasia 1+, Anisocytosis 1+ 10/28/21 11:51: Specimen Source Left radial, O2 % 3l nc, ABG pH 7.31 L, ABG pCO2 38.8, ABG pO2 100.0, ABG HCO3 19.3 L, ABG Total CO2 20.5 L, ABG O2 Saturation 97, ABG Base Excess -6.9 L, Tevin Test Acceptable 10/28/21 11:51: ABG Lactate 5.2 H 10/28/21 13:00: Tobramycin Trough 7.3 H 10/28/21 14:12: WBC 42.0 H* D, RBC 3.40 L, Hgb 10.0 L, Hct 32.1 L, MCV 94.6, MCH 29.4, MCHC 31.1 L, RDW 13.8, Plt Count 641 H, MPV 8.6, Neut % (Auto) 89.8 H, Lymph % (Auto) 2.7 L, [place] % (Auto) 7.2, Eos % (Auto) 0.0 L, Baso % (Auto) 0.3, Neut # (Auto) 37.8 H, Lymph # (Auto) 1.1, [place] # (Auto) 3.0 H, Eos # (Auto) 0.0, Baso # (Auto) 0.1, Total Counted 100, Neutrophils % (Manual) 89 H, Lymphocytes % (Manual) 3 L, Monocytes % (Manual) 8, Platelet Estimate Moderate increase, RBC Morphology Normal 10/28/21 14:12: Sodium 124 L, Potassium 5.0, Chloride 88 L, Carbon Dioxide 20 L, Anion Gap 21.0 H, BUN 43 H, Creatinine 2.40 H, Estimated Creat Clear 17, Estimated GFR 20 L, Est GFR ( Amer) 24 L, Glucose 99 D, Calcium 6.2 L, Total Bilirubin 0.4, AST 67 H D, ALT 35, Alkaline Phosphatase 59, Total Protein 4.3 L, Albumin 2.1 L, Globulin 2.2, Albumin/Globulin Ratio 1.0 L 10/28/21 14:12: Magnesium 1.7 10/28/21 14:12: Phosphorus 7.1 H, Troponin I 0.01 10/28/21 14:12: Lactate 3.1 H 10/28/21 18:10: Lactate 1.4 10/29/21 02:18: Urine Color Yellow, Urine Appearance Clear, Urine pH 6.0, Ur Specific [place] 1.020, Urine Protein Trace, Urine Glucose (UA) Negative, Urine Ketones Negative, Urine Blood 3+, Urine Nitrate Negative, Urine Bilirubin Negative, Urine Urobilinogen 0.2, Ur Leukocyte Esterase Negative, Urine RBC 10-20, Urine Bacteria 1+ 10/29/21 06:35: Sodium 117 L, Potassium 5.0, Chloride 83 L, Carbon Dioxide 19 L, Anion Gap 20.0 H, BUN 58 H D, Creatinine 3.10 H D, Estimated Creat Clear 13, Estimated GFR 15 L*, Est GFR ( Amer) 18 L* D, Glucose 174 H D, Calcium 5.9 L 10/29/21 06:35: WBC 53.7 H* D, RBC 3.26 L, Hgb 9.3 L, Hct 31.1 L, MCV 95.3, MCH 28.6, MCHC 30.0 L, RDW 13.8, Plt Count 680 H, MPV 8.7, Neut % (Auto) 90.5 H, Lymph % (Auto) 2.9 L, [place] % (Auto) 6.0, Eos % (Auto) 0.0 L, Baso % (Auto) 0.6, Neut # (Auto) 48.6 H, Lymph # (Auto) 1.6, [place] # (Auto) 3.2 H, Eos # (Auto) 0.0, Baso # (Auto) 0.3 H I & O for Labs for Last 24 Hours: Intake & Output 10/26/21 10/27/21 10/28/21 10/29/21 23:59 23:59 23:59 23:59 Intake Total 1140 / 1140 628 / 628 2766.346 / 2766.346 760.64 / 760.64 Output Total 1432 / 1432 1948 / 1948 1090 / 1090 680 / 680 Balance -292 / -292 -1320 / -1320 1676.346 / 1676.346 80.64 / 80.64 Weight 117 lb 3 oz 117 lb 15.369 oz 117 lb 1.929 oz 117 lb 1.929 oz Microbiology Reports for the Last 24 Hours: Microbiology 10/19/21 19:15 Sputum - Endotracheal Tube Aspirate - Preliminary 10/19/21 19:15 Sputum - Endotracheal Tube Aspirate - Final 10/26/21 15:20 Pleural Fluid - Pleura Gram Stain - Final 10/26/21 15:20 Pleural Fluid - Pleura Body Fluid Culture - Preliminary NO GROWTH AFTER 48 HOURS Constitutional: Present severe distress Head: Present normocephalic and atraumatic ENT: Present normal exam Neck: Present normal inspection Respiratory: Present respiratory distress, rhonchi and diminished air movement; Absent accessory muscle use, patient mechanically
--- NOTE | 2021-10-29 10:11 | DIET.NUTRFU ---
Addendum entered by Gisela Becerril RD, LD 10/30/21 12:44: Na is now 115L, according to provider she is unable to tolerate salt tabs due to nausea, he ordered 250 mL of hypertonic saline along with 100 mg IV Lasix once. Upon visit today she appeared very weak and had a greyish color to her. She reported she was feeling better then yesterday. She continues to refuse meals, supplements have been sent on tray. Family has been present to help encourage or provide favorite foods from outside. She has edema to arms and fingers, weight up to 56kg from 53kg. Provider plans to call family today to review plan of care. Labs and meds reviewed. Will continue to provide food preference as she requests, she is on regular diet no dietary restrictions at this time. Addendum entered by Gisela Becerril RD, 10/29/21 12:41: Reviewing this morning labs: Na 117L, BUN 58H, Cr 3.10H. IVF was provided yesterday 2700ml secondary to low blood pressure, blood pressure still low today. No IVF ordered at this time. Will continue to follow Original Note: Patient continues to refuse meals, notified provider of nutritional decline, triggering for severe PCM. She has had a overall decline, respiratory failure. Vapotherm now in place. Supplements are ion place if she is able to tolerate. Family brought food in yesterday also. Will continue to monitor po intake and plan of care
--- NOTE | 2021-10-29 10:11 | PC.NURSE ---
chest tube to water seal per Dr. Caballero. If pt experiences resp distress, then order a CXR and notify him immediately.
[2021-10-29 10:32] LABS: Lymphocytes % 6 % (10-50); Monocytes % 9 % (2-9); Neutrophils % 85 % (42-76); Platelet Estimate Slight Increase; RBC Morphology Normal; Total Cells Counted 100
[2021-10-30] VITALS (18 sets, daily range): BP systolic 98–132; BP diastolic 36–57; PULSE 69–90; RESP 12–25; TEMP 36.3–36.8; O2SAT 94–99; BMI 22.8
--- NOTE | 2021-10-30 04:46 | PC.NURSE ---
Pt has rested better tonight. No complaints stated. Pt remains on Vapotherm 20L 40%. Rhonchi and wheezing noted to lung adrian. O2 sats have remained in the upper 90s. Levophed is currently infusing @ 8 mcg/min. Vasopressin @ 0.04 units/min. VSS. Pt is edematous in extremities. Weeping noted to RUE. F/C draining to bedside. CT to water seal. Call light within reach.
--- NOTE | 2021-10-30 06:00 | XR_ITS ---
PROCEDURE INFORMATION: Exam: XR Chest Exam date and time: 10/30/2021 5:26 AM Age: 76 years old Clinical indication: Condition or disease; Lung condition and disease; Pneumonia; Additional info: Pna TECHNIQUE: Imaging protocol: Radiologic exam of the chest. Views: 1 view. COMPARISON: CR XR CHEST PORTABLE 10/29/2021 3:11 AM FINDINGS: Tubes, catheters and devices: Right chest tube is in similar position. Left upper extremity PICC terminates in the region of the superior cavoatrial junction. Lungs: Similar chronic interstitial opacities and similar bibasilar airspace opacities. Pleural spaces: No substantial pleural effusion. No pneumothorax. Heart/Mediastinum: Unremarkable. No cardiomegaly. Bones/joints: Unremarkable. IMPRESSION: No substantial interval change. Similar bibasilar airspace opacities. No substantial pleural effusion or pneumothorax.
[2021-10-30 06:57] LABS: Basophils # 0.1 K/mm3 (0-0.2); Basophils % 0.3 % (0.1-2.0); Hematocrit 21.6 % (37.0-47.0); Lymphocytes # 1.5 K/mm3 (0.7-4.5); Lymphocytes % 3.9 % (10-50); Mean Corpuscular HGB Conc 33.1 g/dL (31.8-35.4); Mean Corpuscular Hemoglobin 29.8 pg (27.0-31.2); Mean Corpuscular Volume 90.2 fl (81-99); Mean Platelet Volume 8.3 fl (7.4-10.4); Monocytes # 2.1 K/mm3 (0.1-1.0); Monocytes % 5.4 % (1.7-9.3); Neutrophils # 35.5 K/mm3 (1.8-7.8); Neutrophils % 90.4 % (37.0-80.0); Platelet Count 538 K/mm3 (142-424); Red Blood Count 2.39 M/mm3 (4.20-5.40); Red Cell Distribution Width 13.9 % (11.5-17.5); White Blood Count 39.2 K/mm3 (4.8-10.8)
[2021-10-30 06:59] LABS: Hemoglobin 7.2 g/dL (12.2-16.2); MANUAL DIFFERENTIAL MANUAL DIFFERENTIAL (MANUAL DIFF)
[2021-10-30 07:06] LABS: Anion Gap 21.3 mEq/L (5-15); Blood Urea Nitrogen 69 mg/dl (7-17); Carbon Dioxide 18 mmol/L (22.0-30.0); Chloride 81 mmol/L (98-107); Glucose 84 mg/dl (74-100); Potassium 5.3 mmoL/L (3.5-5.1)
[2021-10-30 07:47] LABS: Sodium 115 mmol/L (136-145)
[2021-10-30 08:22] LABS: Creatinine Clearance Estimated 14 mL/min (50-200); Estimated Glomerular Filt Rate 15 ml/min (>60); GFR (African American) 18 ML/MIN (>60)
[2021-10-30 09:40] LABS: Lymphocytes % 4 % (10-50); Monocytes % 7 % (2-9); Neutrophils % 89 % (42-76); Total Cells Counted 100
--- NOTE | 2021-10-30 09:42 | EXP.ACUTE.PN ---
Subjective *Date: 10/30/21 *Time: 19:23 Interval history: 76-year-old female patient with mild respiratory distress, she reports feeling better today than yesterday. Remains on Levophed and vasopressin. Oxygenation per Vapotherm and right sided chest tube to waterseal. Medical Exam Vital signs and Labs for Last 24 Hours: Temp Pulse Resp BP Pulse Ox FiO2 97.4 F L 88 24 130/37 L 97 40 10/30/21 08:00 10/30/21 08:00 10/30/21 08:00 10/30/21 08:00 10/30/21 08:00 10/30/21 06:17 Laboratory Results - last 24 hr 10/29/21 06:35: Total Counted 100, Neutrophils % (Manual) 85 H, Lymphocytes % (Manual) 6 L, Monocytes % (Manual) 9, Platelet Estimate Slight increase, RBC Morphology Normal 10/30/21 06:05: Sodium 115 L, Potassium 5.3 H, Chloride 81 L, Carbon Dioxide 18 L, Anion Gap 21.3 H, BUN 69 H, Creatinine 3.00 H, Estimated Creat Clear 14, Estimated GFR 15 L*, Est GFR ( Amer) 18 L*, Glucose 84 D, Calcium 6.0 L 10/30/21 06:05: WBC 39.2 H* D, RBC 2.39 L D, Hgb 7.2 L D, Hct 21.6 L, MCV 90.2, MCH 29.8, MCHC 33.1, RDW 13.9, Plt Count 538 H, MPV 8.3, Neut % (Auto) 90.4 H, Lymph % (Auto) 3.9 L, [place] % (Auto) 5.4, Eos % (Auto) 0.0 L, Baso % (Auto) 0.3, Neut # (Auto) 35.5 H, Lymph # (Auto) 1.5, [place] # (Auto) 2.1 H, Eos # (Auto) 0.0, Baso # (Auto) 0.1 I & O for Labs for Last 24 Hours: Intake & Output 10/27/21 10/28/21 10/29/21 10/30/21 23:59 23:59 23:59 23:59 Intake Total 628 / 628 2766.346 / 2766.346 1328.828 / 1328.828 335.782 / 335.782 Output Total 1947 1090 / 1090 850 / 920 100 / 100 Balance -1320 / -1320 1676.346 / 1676.346 478.828 / 408.828 235.782 / 235.782 Weight 117 lb 15.369 oz 117 lb 1.929 oz 117 lb 1.929 oz 124 lb 7 oz Microbiology Reports for the Last 24 Hours: Microbiology 10/26/21 15:20 Pleural Fluid - Pleura Gram Stain - Final 10/26/21 15:20 Pleural Fluid - Pleura Body Fluid Culture - Preliminary NO GROWTH AFTER 72 HOURS 10/19/21 19:15 Sputum - Endotracheal Tube Aspirate - Preliminary 10/19/21 19:15 Sputum - Endotracheal Tube Aspirate - Final Head: Present atraumatic Eyes: Present as per HPI ENT: Present normal exam Neck: Present trachea midline Respiratory: Present decreased breath sounds and rhonchi Comment:: Right-sided chest tube to waterseal Cardiac: Present Reg Rate and Rhythm GI: Present soft and normal bowel sounds; Absent distention or tenderness Extremities: Present full ROM Skin: Present intact, erythema, dry and warm; Absent cyanosis Neuro: Present Motor Function Intact, Weakness and oriented x 3 Assessment and Plan *Assessment and plan (1) Pneumonia: Status: Acute Qualifiers: Pneumonia type: due to Pseudomonas Laterality: right Lung location: lower lobe of lung Qualified Code(s): J15.1 - Pneumonia due to Pseudomonas Category: Medical Code(s): J18.9 - Pneumonia, unspecified organism (2) Pleural effusion on right: Status: Acute Category: Medical Code(s): J90 - Pleural effusion, not elsewhere classified (3) Septic shock: Status: Acute Category: Medical Code(s): A41.9 - Sepsis, unspecified organism; R65.21 - Severe sepsis with septic shock (4) Hypotension: Status: Acute Category: Medical Code(s): I95.9 - Hypotension, unspecified (5) Atrial fibrillation: Status: Acute Qualifiers: Atrial fibrillation type: paroxysmal Qualified Code(s): I48.0 - Paroxysmal atrial fibrillation Category: Medical Code(s): I48.91 - Unspecified atrial fibrillation (6) Pneumothorax: Status: Acute Category: Medical Code(s): J93.9 - Pneumothorax, unspecified (7) Chest tube in place: Status: Acute Category: Medical Code(s): Z96.89 - Presence of other specified functional implants Plan 1. Wean vasopressors as tolerated 2. Wean O2 as tolerated 3. Pulmonary following
[2021-10-30 09:44] LABS: Platelet Estimate Slight Increase; RBC Morphology Normal
--- NOTE | 2021-10-30 10:45 | EXP.PULM.PN ---
Subjective *Date: 10/30/21 *Time: 10:45 Interval history: No acute respiratory vents overnight. Continues to be needing pressor support. Pulmonology Exam Inpatient Vital signs and Labs for Last 24 Hours: Temp Pulse Resp BP Pulse Ox FiO2 97.4 F L 79 21 130/57 L 95 40 10/30/21 08:00 10/30/21 10:00 10/30/21 10:00 10/30/21 10:00 10/30/21 10:00 10/30/21 06:17 Laboratory Results - last 24 hr 10/30/21 06:05: Sodium 115 L, Potassium 5.3 H, Chloride 81 L, Carbon Dioxide 18 L, Anion Gap 21.3 H, BUN 69 H, Creatinine 3.00 H, Estimated Creat Clear 14, Estimated GFR 15 L*, Est GFR ( Amer) 18 L*, Glucose 84 D, Calcium 6.0 L 10/30/21 06:05: WBC 39.2 H* D, RBC 2.39 L D, Hgb 7.2 L D, Hct 21.6 L, MCV 90.2, MCH 29.8, MCHC 33.1, RDW 13.9, Plt Count 538 H, MPV 8.3, Neut % (Auto) 90.4 H, Lymph % (Auto) 3.9 L, [place] % (Auto) 5.4, Eos % (Auto) 0.0 L, Baso % (Auto) 0.3, Neut # (Auto) 35.5 H, Lymph # (Auto) 1.5, [place] # (Auto) 2.1 H, Eos # (Auto) 0.0, Baso # (Auto) 0.1, Total Counted 100, Neutrophils % (Manual) 89 H, Lymphocytes % (Manual) 4 L, Monocytes % (Manual) 7, Platelet Estimate Slight increase, RBC Morphology Normal I & O for Labs for Last 24 Hours: Intake & Output 10/27/21 10/28/21 10/29/21 10/30/21 23:59 23:59 23:59 23:59 Intake Total 628 / 628 2766.346 / 2766.346 1328.828 / 1328.828 593.782 / 593.782 Output Total 1948 / 1948 1090 / 1090 850 / 920 100 / 100 Balance -1320 / -1320 1676.346 / 1676.346 478.828 / 408.828 493.782 / 493.782 Weight 117 lb 15.369 oz 117 lb 1.929 oz 117 lb 1.929 oz 124 lb 7 oz Microbiology Reports for the Last 24 Hours: Microbiology 10/29/21 02:18 Urine,Catheterized Urine Culture - Preliminary NO GROWTH AFTER 24 HOURS 10/26/21 15:20 Pleural Fluid - Pleura Gram Stain - Final 10/26/21 15:20 Pleural Fluid - Pleura Body Fluid Culture - Preliminary NO GROWTH AFTER 72 HOURS 10/19/21 19:15 Sputum - Endotracheal Tube Aspirate - Preliminary 10/19/21 19:15 Sputum - Endotracheal Tube Aspirate - Final Constitutional: Present severe distress Head: Present normocephalic and atraumatic ENT: Present normal exam Neck: Present normal inspection Respiratory: Present respiratory distress, rhonchi and diminished air movement; Absent accessory muscle use, patient mechanically ventilated, wheezes, crackles or able to speak in complete sentences Comment:: Right-sided chest tube in place. Cardiac: Present S1/S2, Tachycardia and radial pulses present GI: Present soft and distention; Absent tenderness or guarding Rectal (female): Present deferred (female): Present deferred Skin: Present intact; Absent cyanosis or jaundice Neuro: Present alert and oriented x 3; Absent awake Extremities: Present normal inspection and edema; Absent clubbing or cyanosis Assessment and Plan *Assessment and plan (1) Pseudomonas aeruginosa infection: Status: Acute Category: Medical Code(s): A49.8 - Other bacterial infections of unspecified site (2) Acute respiratory failure with hypoxia: Status: Acute Category: Medical Code(s): J96.01 - Acute respiratory failure with hypoxia (3) Septic shock: Status: Acute Category: Medical Code(s): A41.9 - Sepsis, unspecified organism; R65.21 - Severe sepsis with septic shock (4) Chest tube in place: Status: Acute Category: Medical Code(s): Z96.89 - Presence of other specified functional implants (5) Pleural effusion on right: Status: Acute Category: Medical Code(s): J90 - Pleural effusion, not elsewhere classified (6) Pneumonia: Status: Acute Qualifiers: Pneumonia type: due to Pseudomonas Laterality: right Lung location: lower lobe of lung Qualified Code(s): J15.1 - Pneumonia due to Pseudomonas Category: Medical Code(s): J18.9 - Pneumonia, unspecified organism Plan #Pneumothorax: #Pseud
--- NOTE | 2021-10-30 18:29 | PC.NURSE ---
Pt is alert and oriented x4. Rhonchi and wheezes noted to lungs. She's been weaned to 15L/40% vapotherm with O2 sats measuring >95%. She was treated with prn pain meds x1 and zofran x1 for nausea with favorable results for both. She's been ST on telemetry. Her mancuso is to bedside draining yellow urine. 40 mls out this shift. Chest tube in place to right chest, 100mls of bloody draining out this shift. Levo running at 8mcg/min. Family has been to visit and updated on poc. Bed is locked and in the lowest position,call light is within reach.
--- NOTE | 2021-10-30 21:00 | PC.NURSE ---
pt's pleuravac full, changed pleuravac; chest tube to water seal; chest tube dressing intact; pt having moderate sanguineous output with large clots into pleuravac, 200mL out since last day shift assessment, lung sounds clear, pt on vapotherm at this time; HR 80-110, pt's arms and hands very edematous, pt weeping serous fluid from right arm, changed chux under right arm; pt very confused and lethargic, emv 13, pt awakens to voice but didn't answer any orientation questions appropriately not even her dog's name, but then pt knew she couldn't take the big white pills when asked pt if she could swallow pills, pt very weak, asked pt to hold arms up and pt could barely hold up any extremity; pt's bowel sounds active, pt has mancuso with little to no urine output although day RN gave lasix, pt on levophed for hypotension titrating accordingly, pt hasn't c/o pain even shook head no when asked if was in pain, call light within reach
--- NOTE | 2021-10-30 21:00 | PC.NURSE ---
pt's pleuravac full, changed pleuravac; chest tube to water seal; chest tube dressing intact; pt having moderate sanguineous output with 2 large clots into pleuravac, 200mL out since last day shift assessment
--- NOTE | 2021-10-30 21:00 | PC.NURSE ---
pt's pleuravac full, changed pleuravac; chest tube to water seal; chest tube dressing intact; pt having moderate sanguineous output with large clots into pleuravac, 200mL out since last day shift assessment, lung sounds clear, pt on vapotherm at this time; HR 80-110, pt's arms and hands very edematous, pt weeping serous fluid from right arm, changed chux under right arm; pt very confused and lethargic, emv 13, pupils not equal (left smaller than right, but is pt's baseline), pt awakens to voice but didn't answer any orientation questions appropriately not even her dog's name, but then pt knew she couldn't take the big white pills when asked pt if she could swallow pills, pt very weak, asked pt to hold arms up and pt could barely hold up any extremity; pt's bowel sounds hypoactive, pt has mancuso with little to no urine output although day RN gave lasix, pt on levophed for hypotension titrating accordingly, pt hasn't c/o pain even shook head no when asked if was in pain, call light within reach
--- NOTE | 2021-10-30 21:52 | PC.NURSE ---
1999-bp 119/49, decreased levo drip to 6mcg/min 2099-bp 115/48, decreased levo drip to 4mcg/min
--- NOTE | 2021-10-30 23:46 | PC.NURSE ---
bp 89/45 (59), increased levophed drip to 5mcg/min per protocol
[2021-10-31] VITALS (26 sets, daily range): BP systolic 91–121; BP diastolic 38–56; PULSE 71–109; RESP 13–32; TEMP 36.2–37; O2SAT 91–100; BMI 22.3
--- NOTE | 2021-10-31 01:21 | PC.NURSE ---
bp 110/46, decreased levophed drip to 4mcg/min per protocol
--- NOTE | 2021-10-31 04:45 | PC.NURSE ---
0315-bp 112/42, decreased levophed drip to 2mcg/min 0430-bp 97/47, put levophed drip on standby
--- NOTE | 2021-10-31 05:14 | PC.NURSE ---
pt rested most of shift, levophed drip off since 429 with sbp above 90, HR less than 100 throughout shift, pt continues on vapotherm 15L/40%FIO2, chest tube to water seal, chest tube dressing cdi, lung sounds clear to diminished, pt's arms and hands very edematous, pt weeping serous fluid from right arm, changed chux under right arm twice this shift; emv 13, pupils not equal (left smaller than right, but is pt's baseline), pt awakens to voice and couldn't tell RN what year it was this shift but answered other orientation questions appropriately, pt's bowel sounds hypoactive, pt has mancuso with anuria (50mL out this shift), no c/o pain even shook head no when asked if was in pain throughout shift, call light within reach
[2021-10-31 06:51] LABS: Anion Gap 17.9 mEq/L (5-15); Blood Urea Nitrogen 79 mg/dl (7-17); Calcium 5.7 mg/dl (8.4-10.2); Carbon Dioxide 20 mmol/L (22.0-30.0); Chloride 88 mmol/L (98-107); Glucose 55 mg/dl (74-100); Potassium 4.9 mmoL/L (3.5-5.1); Sodium 121 mmol/L (136-145)
[2021-10-31 06:57] LABS: Basophils # 0.1 K/mm3 (0-0.2); Basophils % 0.2 % (0.1-2.0); Eosinophils # 0.1 K/mm3 (0.0-0.4); Eosinophils % 0.2 % (0.1-12.0); Lymphocytes % 3.9 % (10-50); Mean Corpuscular Hemoglobin 29.4 pg (27.0-31.2); Mean Platelet Volume 7.7 fl (7.4-10.4); Monocytes # 1.4 K/mm3 (0.1-1.0); Monocytes % 5.6 % (1.7-9.3); Neutrophils # 22.7 K/mm3 (1.8-7.8); Platelet Count 464 K/mm3 (142-424); Red Blood Count 2.07 M/mm3 (4.20-5.40); Red Cell Distribution Width 14.3 % (11.5-17.5); White Blood Count 25.2 K/mm3 (4.8-10.8)
--- NOTE | 2021-10-31 07:35 | PC.NURSE ---
Received call from lab reporting H/H 6.02/24.4. Name and verified. Dr. Jimenez updated.
[2021-10-31 07:38] LABS: Hematocrit 18.4 % (37.0-47.0); Hemoglobin 6.1 g/dL (12.2-16.2)
[2021-10-31 07:39] LABS: MANUAL DIFFERENTIAL MANUAL DIFFERENTIAL (MANUAL DIFF)
[2021-10-31 08:15] LABS: Creatinine Clearance Estimated 8 mL/min (50-200); Estimated Glomerular Filt Rate 8 ml/min (>60); GFR (African American) 9 ML/MIN (>60)
--- NOTE | 2021-10-31 08:34 | PC.NURSE ---
received call from lab reporting Cr 5.4. Name and verified. Dr. Jimenez updated.
[2021-10-31 10:47] LABS: Lymphocytes % 8 % (10-50); Monocytes % 1 % (2-9); Neutrophils % 90 % (42-76); Platelet Estimate Slight Increase; Total Cells Counted 100
[2021-10-31 10:48] LABS: Hypochromasia 1+; RBC Morphology Normal
--- NOTE | 2021-10-31 12:03 | PC.NURSE ---
Family @ [facility] and have requested for pt to be transferred to [facility] for dialysis. Dr. Gonzalez has been notified.
--- NOTE | 2021-10-31 13:21 | EXP.PN ---
Subjective *Date: 10/31/21 *Time: 13:21 Interval history: continues to decline clinically unresponsive to voice this morning, required sternal rub awake and speaking when examined off pressors wbc=25.2, declining hgb=6.1 w/o obvious signs of blood loss bun=79 creat=5.4, up from 3.0 challenged with lasix 100 mg iv yesterday oliguric 3rd spacing Exam Data for Last 24 hours Vital signs and Labs for Last 24 Hours: Temp Pulse Resp BP Pulse Ox FiO2 97.7 F 85 26 H 107/47 L 98 40 10/31/21 08:00 10/31/21 12:00 10/31/21 12:00 10/31/21 12:00 10/31/21 12:00 10/31/21 12:00 Laboratory Results - last 24 hr 10/31/21 06:00: Sodium 121 L, Potassium 4.9, Chloride 88 L, Carbon Dioxide 20 L, Anion Gap 17.9 H, BUN 79 H, Creatinine 5.40 H D, Estimated Creat Clear 8, Estimated GFR 8 L*, Est GFR ( Amer) 9 L* D, Glucose 55 L D, Calcium 5.7 L 10/31/21 06:00: WBC 25.2 H* D, RBC 2.07 L, Hgb 6.1 L*, Hct 18.4 L*, MCV 89.0, MCH 29.4, MCHC 33.0, RDW 14.3, Plt Count 464 H, MPV 7.7, Neut % (Auto) 90.0 H, Lymph % (Auto) 3.9 L, [place] % (Auto) 5.6, Eos % (Auto) 0.2, Baso % (Auto) 0.2, Neut # (Auto) 22.7 H, Lymph # (Auto) 1.0, [place] # (Auto) 1.4 H, Eos # (Auto) 0.1, Baso # (Auto) 0.1, Total Counted 100, Neutrophils % (Manual) 90 H, Band Neutrophils % 1.0, Lymphocytes % (Manual) 8 L, Monocytes % (Manual) 1 L, Platelet Estimate Slight increase, RBC Morphology Normal, Hypochromasia 1+ I & O for Last 24 hours: Intake & Output 10/28/21 10/29/21 10/30/21 10/31/21 23:59 23:59 23:59 23:59 Intake Total 2766.346 / 2766.346 1328.828 / 1328.828 948.782 / 948.782 542 / 542 Output Total 1090 / 1090 850 / 920 200 / 200 130 / 130 Balance 1676.346 / 1676.346 478.828 / 408.828 748.782 / 748.782 412 / 412 Weight 117 lb 1.929 oz 117 lb 1.929 oz 124 lb 7 oz 121 lb 6.184 oz Microbiology Reports for the Last 24 Hours: Microbiology 10/29/21 02:18 Urine,Catheterized Urine Culture - Final NO GROWTH AFTER 48 HOURS 10/26/21 15:20 Pleural Fluid - Pleura Gram Stain - Final 10/26/21 15:20 Pleural Fluid - Pleura Body Fluid Culture - Preliminary NO GROWTH AFTER 4 DAYS 10/19/21 19:15 Sputum - Endotracheal Tube Aspirate - Final 10/19/21 19:15 Sputum - Endotracheal Tube Aspirate - Final 10/19/21 19:15 Sputum - Endotracheal Tube Aspirate - Final 10/28/21 14:50 Blood Blood Culture - Preliminary NO GROWTH AFTER 48 HOURS 10/28/21 14:12 Blood Blood Culture - Preliminary NO GROWTH AFTER 48 HOURS Constitutional Constitutional: thin, chronically ill appearing and cooperative *Routine HEENT Exam Head: Present atraumatic Eye: Absent conjunctival icterus ENT: Present mucous membranes moist *Routine Neck Exam Neck: Present supple *Routine Respiratory Exam Respiratory: Present rhonchi and crackles; Absent accessory muscle use *Routine Cardiovascular Exam Cardiovascular: Present RRR *Routine Abdominal Exam Abdominal: Present soft *Routine Extremities Exam Extremities: Present edema; Absent cyanosis *Routine Skin Exam Skin: Present intact and ecchymosis; Absent cyanosis or jaundice *Routine Neurological Exam Neurological: Present vision grossly intact and hearing grossly intact Assessment and Plan *Assessment and plan (1) Pneumonia: Status: Acute Qualifiers: Pneumonia type: due to Pseudomonas Laterality: right Lung location: lower lobe of lung Qualified Code(s): J15.1 - Pneumonia due to Pseudomonas Category: Medical Code(s): J18.9 - Pneumonia, unspecified organism (2) Septic shock: Status: Acute Category: Medical Code(s): A41.9 - Sepsis, unspecified organism; R65.21 - Severe sepsis with septic shock (3) Hypotension: Status: Acute Category: Medical Code(s): I95.9 - Hypotension, unspecified (4) Pseudomonas aeruginosa infection: Status: Acute
--- NOTE | 2021-10-31 13:47 | XR_ITS ---
PROCEDURE INFORMATION: Exam: XR Chest Exam date and time: 10/31/2021 2:50 PM Age: 76 years old Clinical indication: Shortness of breath; Additional info: Pneumonia TECHNIQUE: Imaging protocol: Radiologic exam of the chest. Views: 1 view. COMPARISON: CR XR CHEST PORTABLE 10/30/2021 5:26 AM FINDINGS: Tubes, catheters and devices: Right-sided chest tube is in place. A left peripherally inserted central venous catheter lies with its tip overlying the superior vena cava. Lungs: Bilateral hyperinflation is present. Atelectasis and/or early infiltrative changes noted within both lung bases. Pleural spaces: There is no evidence of pneumothorax. There are no pleural effusions present. Heart/Mediastinum: Unremarkable. No cardiomegaly. Vasculature: The vasculature demonstrates diffuse mild atherosclerotic calcification. Bones/joints: Unremarkable. IMPRESSION: 1. Bilateral hyperinflation is present. 2. Atelectasis and/or early infiltrative changes noted within both lung bases.
--- NOTE | 2021-10-31 17:45 | PC.NURSE ---
pt has a bed @ [facility]. [address], room 5409. Called report to Jannet ([phone]).
--- NOTE | 2021-10-31 17:46 | PC.NURSE ---
[facility] ambulance called for transport. Trial run of 50% venti mask due to pt not being able to travel with Vapotherm. Pt is maintaining O2 sat high 90s on 50% Venti.
--- NOTE | 2021-10-31 18:14 | PC.NURSE ---
[facility] arrival.
--- NOTE | 2021-10-31 18:24 | PC.NURSE ---
2nd unit PRBC not transfused. 1st unit finished @ 1730. Pt left @ 1815.
--- NOTE | 2021-12-02 11:32 | EXP.DC.SUM ---
General Admission date:: 10/19/21 Discharge date: 11/05/21 HPI HPI HPI: Consult for 76-year-old white female with gross hematuria. Patient admitted on 10/19/21 for pulmonary issues. She was started on Lovenox on 10/23/21 and had a Vegas catheter in place. She had gross hematuria on Tuesday afternoon. Lovenox was held and her Vegas catheter was removed. Hematuria resolved. No further bleeding. She denies any previous history of hematuria. Urology was also consulted. Patient believes she went through menopause at age 45. She has history of x 1966 and 1974 and tubal ligation with in 1974. She denies any history of post menopausal bleeding. Denies vaginal discharge, itching and burning. Hospital Course Hospital Course Hospital Course: Consult for 76-year-old white female with gross hematuria. Patient admitted on 10/19/21 for pulmonary issues. She was started on Lovenox on 10/23/21 and had a Vegas catheter in place. She had gross hematuria on Tuesday afternoon. Lovenox was held and her [place] catheter was removed. Hematuria resolved. No further bleeding. She denies any previous history of hematuria. Urology was also consulted. Urology has seen and recommends: Plan 76-year-old white female with cute onset of gross hematuria last Tuesday afternoon after starting Lovenox.? She also had a Vegas catheter in place.? Lovenox was stopped and the catheter was removed.? She has avoided archana urine over the weekend and urine is currently grossly clear.? She denies a previous history of gross hematuria.? A renal and bladder ultrasound were within normal limits.? She may restart anticoagulants.? No further work-up planned at this time.? If the hematuria recurs please let me know. Cardiology has seen and recommends: Assessment and Plan Assessment and Plan for All Diagnoses:: Plan: 1.? The patient was admitted to the hospital with acute respiratory failure.? She was on mechanical ventilation and has now been extubated.? The patient also had a pneumothorax with chest tube placement.? Her pneumothorax did resolve with the placement of the chest tube.? This is being managed by pulmonology.? Will defer. 2.? The patient did go into atrial fibrillation with RVR.? She was treated with metoprolol and the patient did convert back to sinus rhythm.? Her heart rate was well controlled but this morning her heart rate has been getting up into the 90s and low 100s.? We will increase her metoprolol to 50 mg every 6 hours for better heart rate control. 3.? The patient has a [id number] score of at least 4.? She will require long-term anticoagulation due to the paroxysmal atrial fibrillation.? We will go ahead and put her on Lovenox 1 mg/kg twice daily for therapeutic dosing of Lovenox.? However, she will need to be transition to oral anticoagulation with Xarelto 20 mg in the evening prior to discharge home. 4.? Her blood pressure is well controlled at this time. 5.? Her LDL goal is less than 100. 6.? We will get an echocardiogram to evaluate her LV function due to her shortness of breath and atrial fibrillation. 7.? Further recommendations were made pending the patient's response to treatment. 10/26 update: S/p Ascencion wheat. Seen by Dr. Berry for previous hematuria, he cleared to resume OAC. Patient is status post? Thoracentesis this morning,? will resume xarelto 20mg QD if okay by pulmonary. monitor for bleeding. Continue Metoprolol 50mg Q 6 hours and dilt for rate control. Echo EF 50, RVSP 38 in the setting of chronic lung disease. Will continue to monitor and follow along.? 10/27- Remains afib rate controlled. Xarelto was resumed last night, no further hematuria noted. Hgb stable. Cards will sign off. she can follow up with us in office in 2 week. Continue below card meds Lisinopril 40mg QD Aspirin 81mg QD Metoprolol 50mg Q 6 hours Diltizem HCL 120mg QD Xarelto 20mg QD Pulmonary has seen and recommends: Plan #Pneumothorax: #Pseudomonas Pneumonia:
== END 2021-10-31 18:15 | disposition short-term general hospital (02) | DRG 208 ==
LOC: ER 19:59 → 2ND 20:17
PROVIDERS: Internal Medicine Adolescent Medicine; Internal Medicine Pulmonary Disease; Nurse Practitioner Family; Admitting Provider Family Medicine; Emergency Provider Emergency Medicine; PCP Family Medicine; Visit Provider Family Medicine
DX: J96.21 Acute and chronic respiratory failure with hypoxia (principal); A41.9 Sepsis, unspecified organism; R65.21 Severe sepsis with septic shock; J95.811 Postprocedural pneumothorax; J84.9 Interstitial pulmonary disease, unspecified; J21.8 Acute bronchiolitis due to other specified organisms; N17.9 Acute kidney failure, unspecified; E87.1 Hypo-osmolality and hyponatremia; J47.0 Bronchiectasis with acute lower respiratory infection; J44.9 Chronic obstructive pulmonary disease, unspecified; I10 Essential (primary) hypertension; B96.5 Pseudomonas (aeruginosa) (mallei) (pseudomallei) as the cause of diseases classified elsewhere; D64.9 Anemia, unspecified; E87.5 Hyperkalemia; I48.0 Paroxysmal atrial fibrillation; E78.5 Hyperlipidemia, unspecified
CPT/HCPCS: 32556 ×2; 31628; 32554; 36569; 31500; 94002; 31624; 31629; 32555; 36415; 51702; 71045; 76000; 76604; 76770; 76856; 76857; 80048; 80053; 80200; 81001; 82042; 82803; 82945; 83605; 83615; 83735; 84100; 84155; 84484; 85007; 85014; 85018; 85025; 85048; 85049; 86850; 87040; 87070; 87077; 87086; 87102; 87116; 87186; 87205; 87206; 88112; 88305; 89051; 92526; 92610; 93005; 93306; 93970; 94003; 94640; 94761; 97162; 97166; 97530; 97535; 99291; C1751; C9803; J0330; J0692; J2185; J2405; J2704; J3370; J7639; P9016; U0003; U0005